=== PATIENT | male | born 1955 | race Caucasian/White ===

== ENCOUNTER 2017-01-04 14:26 | Observation (INO) | payer OTHER ==
[2017-01-04] VITALS (7 sets, daily range): BP systolic 125–152; BP diastolic 60–81; PULSE 69–113; RESP 16–24; TEMP 97.6; O2SAT 95–99
[~2017-01-04] VITALS: Ht 188 cm; Wt 94.0 kg
[~2017-01-04 14:26] MED LIST: CLON1 PO; RISP1 PO
--- NOTE | 2017-01-04 14:53 | PD ---
Physical Exam Time Seen by Provider: 14:53 Narrative 61 y/o male here for evaluation of L chest/arm pain, L leg pain, fatigue intermittently for 3 weeks. He says that he lives a fairly sedentary lifestyle secondary to his copd. Data Data Last Documented VS Vital Signs Date Time Temp Pulse Resp B/P Pulse Ox O2 Delivery O2 Flow Rate FiO2 01/04/17 14:29 97.6 113 24 152/81 97 MDM Medical Record Reviewed: Yes Supervised Visit with DONIS: Scooby Villar Jan 04, 2017 14:53
--- NOTE | 2017-01-04 15:24 | RADRPT ---
EXAM DATE/TIME: 01/04/2017 15:15 [facility] COMPARISON: No previous studies available for comparison. INDICATIONS : Chest pain. MEDICAL HISTORY : Chronic obstructive pulmonary disease. SURGICAL HISTORY : None. ENCOUNTER: Initial ACUITY: 1 week PAIN SCORE: 10/10 LOCATION: Bilateral chest FINDINGS: PA and lateral views of the chest demonstrates a mild infiltrate in the left lung base. Otherwise, th e lungs are clear. There are no pleural effusions or pulmonary edema.. The cardiomediastinal contour s are unremarkable. Osseous structures are intact. CONCLUSION: Small mild infiltrate in the left lower lung. Arcadio Nicole MD on January 04, 2017 at 15:22 Board Certified Radiologist. This report was verified electronically.
[2017-01-04 15:59] LABS: BASOPHIL % 0.4 % (0.0-2.0); EOSINOPHIL # 0.2 TH/MM3 (0-0.4); EOSINOPHIL % 2.3 % (0.0-4.0); HEMATOCRIT 46.1 % (39.0-51.0); HEMO FLAGS DIFF FINAL; LYMPH % 28.2 % (9.0-44.0); LYMPHOCYTE # 2.4 TH/MM3 (1.0-4.8); MEAN CELL VOLUME 86.7 FL (80.0-100.0); MEAN CORPUSCULAR HEMOGLOBIN 29.1 PG (27.0-34.0); MEAN CORPUSCULAR HGB CONC 33.6 % (32.0-36.0); MONO % 9.3 % (0.0-8.0); NEUT % 59.8 % (16.0-70.0); PLATELET COUNT 261 TH/MM3 (150-450); RED BLOOD COUNT 5.31 MIL/MM3 (4.50-5.90); RED CELL DISTRIBUTION WIDTH 12.9 % (11.6-17.2); WHITE BLOOD COUNT 8.4 TH/MM3 (4.0-11.0)
--- NOTE | 2017-01-04 16:08 | PD ---
HPI Chief Complaint: Chest Pain Time Seen by Provider: 16:07 Travel History International Travel<30 days: No Contact w/Intl Traveler<30days: No Traveled to known affect area: No History of Present Illness HPI Patient was in complaining of shortness of breath, left-sided chest discomfort, left upper extremity achiness, left lower extremity achiness ongoing for approximately 6 weeks. Denies any radiation of the pain. Patient states that he has a history of COPD and uses his albuterol as needed last used yesterday. Patient's isn't taking his Advair regularly as it makes him feel sick for 3-5 hours after taking it. Patient states that he has had ultrasounds of his extremities with no reported finding causes of pain. Patient states he goes to the [place] and they recently changed his blood pressure medicine to a beta gabriel 4 weeks ago and feels this is making him worse. Patient states he is not very active secondary to his COPD. Patient is not on home oxygen. Patient denies anything making it better. Breathing is worse on exertion. PFSH Past Medical History Anxiety: Yes COPD: Yes Past Surgical History Other Surgery: Yes Social History Alcohol Use: No Tobacco Use: No (reformed) Substance Use: No Allergies-Medications (Allergen,Severity, Reaction): Coded Allergies: Lisinopril (Verified Allergy, Severe, EDEMA, 01/04/17) Uncoded Allergies: BLOOD PRESSURE PILLS (Allergy, Severe, ITCHING, 01/04/17) Reported Meds & Prescriptions Reported Meds & Active Scripts Active Reported Atenolol 25 Mg Tab 12.5 Mg PO DAILY Aspirin 81 Mg Chew 81 Mg CHEW ONCE Proair Hfa 8.5 GM Inh (Albuterol Sulfate) 90 Mcg/Act Aer 1 Puff INH Q4H PRN 108 mcg/actuation Hydrochlorothiazide 12.5 Mg Cap 12.5 Mg PO DAILY Clonazepam 1 Mg Tab 1 Mg PO BID Review of Systems Except as stated in HPI: all other systems reviewed are Neg Physical Exam Narrative GENERAL: Well-developed, overly nourished, in no acute distress, and non-ill appearing. SKIN: Focused skin assessment warm and dry. HEAD: Atraumatic. Normocephalic. EYES: Pupils equal and round. EOMI. No scleral icterus. No injection or drainage. ENT: No nasal bleeding or discharge. Mucous membranes pink and moist. NECK: Trachea midline. No JVD. Supple. No nuclear rigidity. CARDIOVASCULAR: Regular rate and rhythm. No murmur appreciated. RESPIRATORY: Minimal accessory muscle use. No respiratory distress. Decreased breath sounds throughout. Breath sounds equal bilaterally. Able speak in full sentences without difficulty though does breathe with pursed lips. MUSCULOSKELETAL: No obvious deformities. No clubbing. No cyanosis. No edema. Full range of motion. NEUROLOGICAL: Awake and alert. No obvious cranial nerve deficits. Motor grossly within normal limits. Normal speech. PSYCHIATRIC: Appropriate mood and affect; insight and judgment normal. Data Data Last Documented VS Vital Signs Date Time Temp Pulse Resp B/P Pulse Ox O2 Delivery O2 Flow Rate FiO2 01/04/17 19:05 73 18 145/65 97 Nasal Cannula 2 01/04/17 14:29 97.6 Orders Electrocardiogram (01/04/17 14:54) Ckmb (Isoenzyme) Profile (01/04/17 14:54) Complete Blood Count With Diff (01/04/17 14:54) Comprehensive Metabolic Panel (01/04/17 14:54) D-Dimer (01/04/17 14:54) Magnesium (Mg) (01/04/17 14:54) Prothrombin Time / Inr (Pt) (01/04/17 14:54) Act Partial Throm Time (Ptt) (01/04/17 14:54) Troponin I (01/04/17 14:54) Chest, Pa & Lat (01/04/17 14:54) Ecg Monitoring (01/04/17 16:09) Iv Access Insert/Monitor (01/04/17 16:09) Oximetry (01/04/17 16:09) Oxygen Administration (01/04/17 16:09) Sodium Chloride 0.9% Flush (Ns Flush) (01/04/17 16:15) Ceftriaxone Inj (Rocephin Inj) (01/04/17 16:15) Azithromycin Inj (Zithromax Inj) (01/04/17 16:15) Albuterol-Ipratropium Neb (Duoneb Neb) (01/04/17 16:15) Methylprednisolone So Succ Inj (Solumedr (01/04/17 16:15) Ct Pulmonary Angiogram (01/04/17 ) Us Leg Venous Doppler (01/04/17 16:19) Us Arm Venous Doppler (01/04/17 16:19) Iohexol 350 Inj (Omnipaque 350 Inj) (01/04/17 18:55) Admit Order (Ed Use Only) (01/04/17 19:43) Place In Observation (01/04/17 ) Vital Signs (Adult) Q4H (01/04/17 19:41) Activity Bed Rest (01/04/17 19:41) Edi Developer / Telemetry .CONTINUOUS (01/04/17 19:41) Diet Heart Healthy (01/05/17 Breakfast) Sodium Chloride 0.9% Flush (Ns Flush) (01/04/17 19:45) Sodium Chloride 0.9% Flush (Ns Flush) (01/04/17 21:00) Basic Metabolic Panel (Bmp) (01/05/17 06:00) Complete Blood Count With Diff (01/05/17 06:00) Case Management Consult (01/04/17 19:41) Naloxone Inj (Narcan Inj) (01/04/17 19:45) Labs Laboratory Tests Test 01/04/17 15:53 White Blood Count 8.4 TH/MM3 Red Blood Count 5.31 MIL/MM3 Hemoglobin 15.5 GM/DL Hematocrit 46.1 % Mean Corpuscular Volume 86.7 FL Mean Corpuscular Hemoglobin 29.1 PG Mean Corpuscular Hemoglobin 33.6 % Concent Red Cell Distribution Width 12.9 % Platelet Count 261 TH/MM3 Mean Platelet Volume 7.5 FL Neutrophils (%) (Auto) 59.8 % Lymphocytes (%) (Auto) 28.2 % Monocytes (%) (Auto) 9.3 % Eosinophils (%) (Auto) 2.3 % Basophils (%) (Auto) 0.4 % Neutrophils # (Auto) 5.0 TH/MM3 Lymphocytes # (Auto) 2.4 TH/MM3 Monocytes # (Auto) 0.8 TH/MM3 Eosinophils # (Auto) 0.2 TH/MM3 Basophils # (Auto) 0.0 TH/MM3 CBC Comment DIFF FINAL Differential Comment Prothrombin Time 10.0 SEC Prothromb Time International 0.9 RATIO Ratio Activated Partial 27.8 SEC Thromboplast Time D-Dimer Quantitative (PE/DVT) 0.86 MG/L FEU Sodium Level 139 MEQ/L Potassium Level 4.0 MEQ/L Chloride Level 105 MEQ/L Carbon Dioxide Level 25.6 MEQ/L Anion Gap 8 MEQ/L Blood Urea Nitrogen 24 MG/DL Creatinine 1.13 MG/DL Estimat Glomerular Filtration 66 ML/MIN Rate Random Glucose 70 MG/DL Calcium Level 8.5 MG/DL Magnesium Level 2.3 MG/DL Total Bilirubin 0.3 MG/DL Aspartate Amino Transf 19 U/L (AST/SGOT) Alanine Aminotransferase 48 U/L (ALT/SGPT) Alkaline Phosphatase 85 U/L Total Creatine Kinase 73 U/L Troponin I LESS THAN 0.02 NG/ML Total Protein 7.3 GM/DL Albumin 3.7 GM/DL [facility] Medical Decision Making Medical Screen Exam Complete: Yes Emergency Medical Condition: Yes Interpretation(s) Chest x-ray read by the radiologist shows: Small mild infiltrate in the left lower lung. Left lower extremity Doppler read by the radiologist shows: Positive for occlusive deep venous thrombosis left posterior tibial vein. Left upper extremity Doppler read by the radiologist shows: Normal examination. CT pulmonary angiogram read by the radiologist shows: 1. Negative for pulmonary embolus. 2. Moderate centrilobular emphysema. Differential Diagnosis COPD exacerbation, pneumonia, PE, electrolyte abnormality, dehydration, acute coronary syndrome, musculoskeletal pain, other Narrative Course Patient seen and examined. Initial laboratory and radiological studies were ordered. An IV was established patient is on monitoring coordinator. Patient was given IV steroids and DuoNeb treatment. After getting chest x-ray IV antibiotics were added. 183 patient reassessed status post having ultrasound and breathing treatments done. Patient reports improvement of his breathing status post 2 nebs and IV steroids. Waiting Doppler and CT studies. All radiological and laboratory studies reviewed. Discussed patient with Dr. Christiansen, who recommends having patient admitted further treatment and evaluation , await and see what hospitals would like to start the patient on for anticoagulation. Discussed all findings and plan care of patient, who is agreeable for admission. All questions were answered. Discussed patient with hospitalist who is agreeable to patient. Patient remained stable throughout ED course. Physician Communication Physician Communication [address] Aranda, who is agreeable to admit the patient. Diagnosis Primary Impression: COPD exacerbation Additional Impression: Left leg DVT Qualified Code: I82.442 - Acute deep vein thrombosis (DVT) of tibial vein of left lower extremity Admitting Information Admitting Physician Requests: Admit Condition: Stable Deni Boudreaux Jan 04, 2017 16:08
[2017-01-04 16:15] LABS: APTT (PATIENT) 27.8 SEC (24.3-30.1); INTERNATIONAL NORMALIZED RATIO 0.9 RATIO
[2017-01-04] MEDS ORDERED: SODIUM CHLORIDE 0.9% FLUSH 10 ML FLUSH IVF PRN (16:15)
[2017-01-04] MEDS ORDERED: AZITHROMYCIN INJ 500 MG in SODIUM CHLOR 0.9% 250 ML INJ 250 ML IV ONE (16:15)
[2017-01-04] MEDS ORDERED: methylPREDNISolone SOD SUCC 125 MG/2 ML VIAL IV ONE (16:15)
[2017-01-04] MEDS ORDERED: cefTRIAXone INJ 1,000 MG in SODIUM CHLORIDE 0.9% INJ 100 ML IV ONE (16:15)
[2017-01-04] MEDS: RESP: ALBUTEROL 2.5 MG/IPRATROPIUM 0.5 MG NEB (SCH) INH ×2 (16:30→16:31)
[2017-01-04 16:36] LABS: ALT (GPT) 48 U/L (12-78); ANION GAP 8 MEQ/L (5-15); AST (GOT) 19 U/L (15-37); BICARBONATE 25.6 MEQ/L (21.0-32.0); BLOOD UREA NITROGEN 24 MG/DL (7-18); CHLORIDE 105 MEQ/L (98-107); GLOMERULAR FILTRATION RATE 66 ML/MIN (>89); MAGNESIUM 2.3 MG/DL (1.5-2.5); SODIUM (NA) 139 MEQ/L (136-145)
[2017-01-04 16:40] LABS: ALKALINE PHOSPHATASE 85 U/L (45-117); TOTAL BILIRUBIN ADULT 0.3 MG/DL (0.2-1.0)
[2017-01-04 16:41] LABS: CREATINE KINASE 73 U/L (39-308)
[2017-01-04] MEDS ORDERED: CLON1TAB PO (18:49)
--- NOTE | 2017-01-04 18:52 | RADRPT ---
EXAM DATE/TIME: 01/04/2017 17:50 [facility] COMPARISON: No previous studies available for comparison. INDICATIONS : Left leg pain. MEDICAL HISTORY : Chronic obstructive pulmonary disease. Anxiety. Caffeine use. SURGICAL HISTORY : Right elbow fracture repair. ENCOUNTER: Initial ACUITY: 1 week PAIN SCORE: 5/10 LOCATION: Left leg. TECHNIQUE: Venous ultrasound of the leg was performed from the inguinal ligament to the proximal calf. Real-kodak e, color Doppler and spectral tracing, compression and augmentation techniques were used. FINDINGS: The examination is positive for occlusive thrombus in the left posterior tibial vein. The femoral vei n, popliteal vein, peroneal vein and saphenous vein are patent. CONCLUSION: 1. Positive for occlusive deep venous thrombosis left posterior tibial vein. Charlie Mcneal MD on January 04, 2017 at 18:50 Board Certified Radiologist. This report was verified electronically.
[2017-01-04] MEDS ORDERED: HYDR12.57 PO (18:54)
--- NOTE | 2017-01-04 18:54 | RADRPT ---
EXAM DATE/TIME: 01/04/2017 18:04 [facility] COMPARISON: No previous studies available for comparison. INDICATIONS : MEDICAL HISTORY : Chronic obstructive pulmonary disease. Anxiety. Caffeine use. SURGICAL HISTORY : Right elbow fracture repair. ENCOUNTER: Initial ACUITY: 4 - 6 days PAIN SCORE: 5/10 LOCATION: Left arm. FINDINGS: There is spontaneous flow documented in the brachial, basilic, cephalic, axillary, and subclavian vei ns. The vessels are compressible and augmentation response is documented. No filling defects are se en. The flow is phasic with respiration. Direction of flow in the jugular vein is caudal. CONCLUSION: Normal examination. Charlie Mnceal MD on January 04, 2017 at 18:53 Board Certified Radiologist. This report was verified electronically.
[2017-01-04] MEDS ORDERED: IOHEXOL 350 MG/ML 10 ML VIAL (for RAD DIAG) IV ONE (18:55)
[2017-01-04] MEDS ORDERED: ASPI81CH CHEW (18:56)
[2017-01-04] MEDS ORDERED: ALBUAER3 INH (18:56)
[2017-01-04] MEDS ORDERED: ATEN25TA PO (18:56)
--- NOTE | 2017-01-04 19:20 | RADRPT ---
EXAM DATE/TIME: 01/04/2017 18:48 [facility] COMPARISON: No previous studies available for comparison. INDICATIONS : Chest pain radiating to left arm, evaluate for pulmonary embolus. IV CONTRAST: 50 cc Omnipaque 350 (iohexol) IV RADIATION DOSE: 16.55 CTDIvol (mGy) MEDICAL HISTORY : Chronic obstructive pulmonary disease. SURGICAL HISTORY : None. ENCOUNTER: Initial ACUITY: 3 weeks PAIN SCALE: 6/10 LOCATION: Left chest TECHNIQUE: Volumetric scanning of the chest was performed using a pulmonary embolism protocol MIP images were re constructed. Using automated exposure control and adjustment of the mA and/or kV according to patien t size, radiation dose was kept as low as reasonably achievable to obtain optimal diagnostic quality images. DICOM format image data is available electronically for review and comparison. Follow-up recommendations for incidentally detected pulmonary nodules are based at a minimum on nodul e size and patient risk factors according to Fleischner Society Guidelines. FINDINGS: There is moderate emphysema. There is dependent atelectasis in both lungs. No pleural or pericardial effusion. No adenopathy. No filling defects in the pulmonary arteries to suggest pulmonary buttock disease. No acute findings in the upper abdomen. Low attenuation lesions in the liver probably cysts or hemangiomata. CONCLUSION: 1. Negative for pulmonary embolus. 2. Moderate centrilobular emphysema. Charlie Mcneal MD on January 04, 2017 at 19:16 Board Certified Radiologist. This report was verified electronically.
[2017-01-04] MEDS ORDERED: SODIUM CHLORIDE 0.9% FLUSH 10 ML FLUSH IV FLUSH PRN (19:45)
[2017-01-04] MEDS ORDERED: RESP: ALBUTEROL 2.5 MG/IPRATROPIUM 0.5 MG NEB (PRN) NEB (19:45)
[2017-01-04] MEDS ORDERED: NALOXONE HCL 0.4 MG/ML AMP IV PRN (19:45)
[2017-01-04] MEDS: SODIUM CHLORIDE 0.9% FLUSH 10 ML FLUSH IV FLUSH SCH (21:04)
--- NOTE | 2017-01-04 21:16 | HHI.HP ---
[facility] Admission Diagnosis COPD exacerbation, left lower extremity DVT Diagnoses: (1) Left leg DVT (2) COPD exacerbation (3) Chest pain (4) Dizziness Chief Complaint: left leg pain, chest pain, left arm pain Travel History International Travel<30 Days: No Contact w/Intl Traveler <30 Da: No Traveled to Known Affected Are: No History of Present Illness Written by Bria Rose, acting as scribe for Dr. Aranda on 01/04/17 at 20:47. Patient reports a history of severe COPD. He states he has hypertension and was recently started on a Beta Pawel - said he feels so badly, he wants to "rip his skin off". He gets care at [place] [facility]. He reports pain in his left calf described as "aching"; denies any injury; pain was shooting down leg - symptom present for one month. Left lower extremity US performed in ER: positive for occlusive deep venous thrombosis left posterior tibial vein. He also reports chest pain across chest and radiating down left arm. He said he was feeling so badly that he had his ex- drive him to the [place]. He was seen and told to come to the ER. States chest pain and left arm pain has resolved off the beta pawel for 48 hours. Symptoms present for the past few months. Chest pain is non-exertional; denies diaphoresis, nausea. Stress test and echocardiogram done at [facility] about 2 years ago. Denies fever, bloody or black stools, hematuria, and dysuria. Reports strong smelling urine. Hypertension x 9 months - reports different blood pressure readings at home between left and right arm - lower on the left. Shortness of breath for the past few months. Reports pain in the lung on the left. Last for seconds and "takes your breath away". Reports a history of bronchitis for 9 months - resistant to treatment - treated at [facility] in [facility], [place], and [facility]. Up until one year ago, was only on Klonopin. Not as ambulatory over the past year. Had a lot of dizziness when ambulating. He denies arthritis. Prior to this, he was very strong and active. Motorcycle riding. Lifting appliances. Review of Systems Except as stated in HPI: all other systems reviewed are Neg Past Family Social History Past Medical History Hypertension - diagnosed 9 months ago COPD Chronic Bronchitis History of right elbow fracture Insomnia Anxiety Denies diabetes mellitus, COPD, CAD, heart problems, JANEEN, liver problems, kidney problems, DVT, PE, CVA, seizures, cancers, prostate problems, thyroid problems . Past Surgical History Right elbow fracture repair . Reported Medications Reported Meds & Active Scripts Active Reported Atenolol 25 Mg Tab 12.5 Mg PO DAILY Aspirin 81 Mg Chew 81 Mg CHEW ONCE Proair Hfa 8.5 GM Inh (Albuterol Sulfate) 90 Mcg/Act Aer 1 Puff INH Q4H PRN 108 mcg/actuation Hydrochlorothiazide 12.5 Mg Cap 12.5 Mg PO DAILY Clonazepam 1 Mg Tab 1 Mg PO BID . Allergies: Coded Allergies: Lisinopril (Verified Allergy, Severe, EDEMA, 01/04/17) Beta Blockers (Verified Adverse Reaction, Intermediate, feeling of nervousness, feeling of skin coming off, , 01/05/17) Uncoded Allergies: BLOOD PRESSURE PILLS (Allergy, Severe, ITCHING, 01/04/17) Active Ordered Medications Current Medications Sodium Chloride 2 ml 2 ml UNSCH PRN IVF FLUSH AFTER USING IV ACCESS; Start 01/04 at 16:15; Stop 01/04/17 at 19:47; Status DC Ceftriaxone Sodium 1000 mg/ Sodium Chloride 100 ml @ 200 mls/hr ONCE ONCE IV Last administered on 01/04/17 16:39; Start 01/04/17 at 16:15; Stop 01/04/17 at 16: 44; Status DC Azithromycin/ Sodium Chloride (Zithromax Inj/ NS 250 ml Inj) 250 ml @ 250 mls/ hr ONCE ONCE IV Last administered on 01/04/17 17:24; Start 01/04/17 at 16:15; Stop 01/04/17 at 17:14; Status DC Albuterol/ Ipratropium (Duoneb Neb) 1 ampule Q15M INH Last administered on 16:31; Start 01/04/17 at 16:15; Stop 01/04/17 at 16:46; Status DC Methylprednisolone Sodium Succinate (SoluMEDROL INJ) 125 mg ONCE ONCE IV Last administered on 01/04/17 16:40; Start 01/04/17 at 16:15; Stop 01/04/17 at 16:16; Status DC Iohexol (Omnipaque 350 Inj) 50 ml STK-MED ONCE IV Last administered on t 18:55; Start 01/04/17 at 18:55; Stop 01/04/17 at 18:56; Status DC Sodium Chloride (NS Flush) 2 ml UNSCH PRN IV FLUSH FLUSH AFTER USING IV ACCESS ; Start 01/04/17 at 19:45 Sodium Chloride (NS Flush) 2 ml BID IV FLUSH ; Start 01/04/17 at 21:00 Naloxone HCl (Narcan Inj) 0.4 mg UNSCH PRN IV SEE LABEL COMMENTS; Start at 19:45 Albuterol/ Ipratropium (Duoneb Neb) 1 ampule Q6HR NEB NEB ; Start 01/04/17 at 22 :00; Status UNV Albuterol/ Ipratropium 1 ampule 1 ampule Q2HR NEB PRN NEB wheezing; Start at 19:45; Status UNV Levofloxacin/ Dextrose (Levaquin 750 Mg Premix Inj) 150 ml @ 100 mls/hr Q24H IV ; Start 01/05/17 at 09:00; Status UNV Methylprednisolone Sodium Succinate (SoluMEDROL INJ) 40 mg Q6HR IV PUSH ; Start 01/05/17 at 00:00; Status UNV Pantoprazole Sodium (Protonix) 40 mg DAILY PO ; Start 01/05/17 at 09:00; Status UNV Enoxaparin Sodium (Lovenox Inj) 90 mg Q12H SQ ; Start 01/04/17 at 20:30; Status UNV . Family History Mental illness in family Denies cardiac family history . 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 Physical Exam Vital Signs Vital Signs Date Time Temp Pulse Resp B/P Pulse Ox O2 Delivery O2 Flow Rate FiO2 01/04/17 19:05 73 18 145/65 97 Nasal Cannula 2 01/04/17 18:46 72 16 125/60 95 Nasal Cannula 2 01/04/17 17:16 69 22 125/60 96 01/04/17 16:33 98 Nasal Cannula 2.50 01/04/17 15:50 99 2 01/04/17 15:50 99 Nasal Cannula 2 01/04/17 15:47 68 98 Nasal Cannula 01/04/17 14:29 97.6 113 24 152/81 97 Physical Exam GENERAL: This is a well-nourished, well-developed patient, in no apparent distress. Anxious. Talkative. SKIN: No rashes, ecchymoses or lesions. Cool and dry. HEAD: Atraumatic. Normocephalic. EYES: No scleral icterus. No injection or drainage. ENT: Nose without bleeding, purulent drainage. NECK: Trachea midline. No JVD. CARDIOVASCULAR: Regular rate and rhythm without murmurs, gallops, or rubs. RESPIRATORY: Clear to auscultation. Breath sounds equal bilaterally. No wheezes , rales, or rhonchi. GASTROINTESTINAL: Abdomen soft, non-tender, nondistended. No guarding. MUSCULOSKELETAL: Extremities without clubbing, cyanosis, or edema. No calf tenderness. NEUROLOGICAL: Awake and alert. Motor and sensory grossly within normal limits. Normal speech. . Laboratory Laboratory Tests Test 01/04/17 15:53 White Blood Count 8.4 Red Blood Count 5.31 Hemoglobin 15.5 Hematocrit 46.1 Mean Corpuscular Volume 86.7 Mean Corpuscular Hemoglobin 29.1 Mean Corpuscular Hemoglobin 33.6 Concent Red Cell Distribution Width 12.9 Platelet Count 261 Mean Platelet Volume 7.5 Neutrophils (%) (Auto) 59.8 Lymphocytes (%) (Auto) 28.2 Monocytes (%) (Auto) 9.3 Eosinophils (%) (Auto) 2.3 Basophils (%) (Auto) 0.4 Neutrophils # (Auto) 5.0 Lymphocytes # (Auto) 2.4 Monocytes # (Auto) 0.8 Eosinophils # (Auto) 0.2 Basophils # (Auto) 0.0 CBC Comment DIFF FINAL Differential Comment Prothrombin Time 10.0 Prothromb Time International 0.9 Ratio Activated Partial 27.8 Thromboplast Time D-Dimer Quantitative (PE/DVT) 0.86 Sodium Level 139 Potassium Level 4.0 Chloride Level 105 Carbon Dioxide Level 25.6 Anion Gap 8 Blood Urea Nitrogen 24 Creatinine 1.13 Estimat Glomerular Filtration 66 Rate Random Glucose 70 Calcium Level 8.5 Magnesium Level 2.3 Total Bilirubin 0.3 Aspartate Amino Transf 19 (AST/SGOT) Alanine Aminotransferase 48 (ALT/SGPT) Alkaline Phosphatase 85 Total Creatine Kinase 73 Troponin I LESS THAN 0.02 Total Protein 7.3 Albumin 3.7 Result Diagram: 01/04/17 1553 01/04/17 1553 Imaging Last Impressions Upper Extremity Ultrasound 01/04/17 1619 Signed Impressions: Service Date/Time: Wednesday, January 04, 2017 18:04 - CONCLUSION: Normal examination. Charlie Mcneal MD Lower Extremity Ultrasound 01/04/17 1619 Signed Impressions: Service Date/Time: Wednesday, January 04, 2017 17:50 - CONCLUSION: 1. Positive for occlusive deep venous thrombosis left posterior tibial vein. Charlie Mcneal MD Chest X-Ray 01/04/17 1454 Signed Impressions: Service Date/Time: Wednesday, January 04, 2017 15:15 - CONCLUSION: Small mild infiltrate in the left lower lung. Arcadio Nicole MD CT Angiography 01/04/17 0000 Signed Impressions: Service Date/Time: Wednesday, January 04, 2017 18:48 - CONCLUSION: 1. Negative for pulmonary embolus. 2. Moderate centrilobular emphysema. Charlie Mcneal MD Assessment and Plan Problem List: (1) Left leg DVT ICD Code: I82.402 Status: Acute (2) COPD exacerbation ICD Code: J44.1 Status: Acute (3) Chest pain ICD Code: R07.9 Status: Acute (4) Dizziness ICD Code: R42 Status: Chronic Assessment and Plan 61 y/o male with history of COPD who presented with COPD exacerbation and left leg DVT: Left leg DVT - Left lower extremity US: positive for occlusive deep venous thrombosis left posterior tibial vein. - Lovenox 90 mg subq q12h - Bedrest Chest pain - ongoing - Check 2D echocardiogram to evaluate cardiac structure and function - continuous cardiac telemetry to monitor cardiac rate and to evaluate for arrhythmia - Monitor vital signs q4h - serial cardiac enzymes and EKGs to r/o ACS - consult cardiology - suspect patient may need angiogram COPD exacerbation - Antibiotics: Levaquin 750 mg IV q24h - Solumedrol 40 mg IV q6h - Duonebulizers q6h ATC and q2h PRN wheezing Dizziness - Carotid ultrasound to evaluate for carotid artery stenosis BP variation between arms - Aortic ultrasound to r/o aortic dissection - check bp both arms - no pulse deficit noted Anxiety - resume home clonazepam Insomnia - Diphenhydramine 50 mg p.o. qhs PRN insomnia This note was transcribed by scribdeneen [Bria Rose]. I, Dr. Chencho Aranda personally performed the history, physical exam, and medical decision making; and confirmed the accuracy of the information in the transcribed note. Authenticated by Dr. Chencho Aranda on 01/04/17 at 20:47. Discussed Condition With ER physician, RN, and patient . Problem Qualifiers (1) Left leg DVT: Qualified Code: I82.442 - Acute deep vein thrombosis (DVT) of tibial vein of left lower extremity Bria Rose Jan 04, 2017 21:16 Chencho Aranda MD Jan 05, 2017 08:23
[2017-01-04] MEDS: RESP: ALBUTEROL 2.5 MG/IPRATROPIUM 0.5 MG NEB (SCH) NEB (21:23)
[2017-01-04] MEDS: ENOXAPARIN SODIUM 100 MG/ML SYRINGE SQ SCH (21:27)
[2017-01-04] MEDS ORDERED: ASPIRIN 81 MG CHEW TAB CHEW SCH (22:30)
[2017-01-04] MEDS: clonazePAM 1 MG TAB PO SCH (22:33)
[2017-01-04] MEDS: diphenhydrAMINE HCL 50 MG CAP PO PRN ×2 (22:33→23:32)
--- NOTE | 2017-01-04 23:29 | RADRPT ---
EXAM DATE/TIME: 01/04/2017 22:32 [facility] COMPARISON: No previous studies available for comparison. INDICATIONS : Dizziness. MEDICAL HISTORY : Chronic obstructive pulmonary disease. SURGICAL HISTORY : Right elbow surgery. ENCOUNTER: Initial ACUITY: 1 day PAIN SCORE: 6/10 LOCATION: Bilateral neck PEAK SYSTOLIC VELOCITIES (cm/sec): ICA/CCA RATIO: Right: 0.9 Left: 0.7 ICA: Right: 97 Left: 103 CCA: Right: 111 Left: 149 ECA: Right: 155 Left: 146 VERTEBRAL: Right: 70 antegrade Left: 53 antegrade Elevated flow velocities and ICA/CCA ratios have been found to correlate with increased degrees of vessel stenosis, calculated as percentage of diameter relative to a normal segment of distal ICA/CCA FINDINGS: RIGHT CAROTID: No significant stenosis is visualized. The waveforms are within normal limits. LEFT CAROTID: No significant stenosis is visualized. The waveforms are within normal limits. VERTEBRAL ARTERIES: Antegrade flow is seen in both vertebral arteries. MISCELLANEOUS: None. CONCLUSION: 1. No evidence for hemodynamically significant stenosis. Manish Villa MD on January 04, 2017 at 23:26 Board Certified Radiologist. This report was verified electronically.
--- NOTE | 2017-01-04 23:30 | RADRPT ---
EXAM DATE/TIME: 01/04/2017 22:47 [facility] COMPARISON: No previous studies available for comparison. INDICATIONS : Rule out aortic dissection. MEDICAL HISTORY : Chronic obstructive pulmonary disease. SURGICAL HISTORY : Right elbow surgery. ENCOUNTER: Initial ACUITY: 1 day PAIN SCORE: 7/10 LOCATION: Abdomen. MEASUREMENTS: (AP x TRANSVERSE) PROXIMAL: 1.9 x 1.3 cm MID: NOT VISUALIZED DISTAL: 1.7 x 1.5 cm RIGHT ILIAC: 0.6 x 0.8 cm LEFT ILIAC: 0.5 x 0.8 cm FINDINGS: AORTA: No significant atherosclerotic disease. Doppler evaluation within normal limits. The mid abdominal a apurva is not clearly visualized on this examination. CONCLUSION: 1. There is no aneurysm. 2. If there is clinical suspicion of aortic dissection, then a CT angiogram of the aorta is recommend ed. Manish Villa MD on January 04, 2017 at 23:28 Board Certified Radiologist. This report was verified electronically.
[2017-01-04] MEDS: methylPREDNISolone SOD SUCC 40 MG/1 ML VIAL IV PUSH SCH (23:32)
[2017-01-05] VITALS (9 sets, daily range): BP systolic 117–161; BP diastolic 58–91; PULSE 75–102; RESP 18–20; TEMP 97.4–98.2; O2SAT 92–95
[2017-01-05 00:01] LABS: CREATINE KINASE 59 U/L (39-308)
[2017-01-05] MEDS: RESP: ALBUTEROL 2.5 MG/IPRATROPIUM 0.5 MG NEB (SCH) NEB ×4 (03:26→20:16)
[2017-01-05] MEDS: methylPREDNISolone SOD SUCC 40 MG/1 ML VIAL IV PUSH SCH ×3 (05:01→17:52)
[2017-01-05 07:27] LABS: AUTOMATED NEUTROPHIL # 7.3 TH/MM3 (1.8-7.7); BASOPHIL % 0.1 % (0.0-2.0); HEMATOCRIT 40.4 % (39.0-51.0); HEMO FLAGS DIFF FINAL; LYMPH % 9.1 % (9.0-44.0); LYMPHOCYTE # 0.7 TH/MM3 (1.0-4.8); MEAN CELL VOLUME 85.3 FL (80.0-100.0); MEAN CORPUSCULAR HEMOGLOBIN 29.7 PG (27.0-34.0); MEAN CORPUSCULAR HGB CONC 34.8 % (32.0-36.0); MONO % 1.7 % (0.0-8.0); NEUT % 89.1 % (16.0-70.0); PLATELET COUNT 235 TH/MM3 (150-450); RED BLOOD COUNT 4.73 MIL/MM3 (4.50-5.90); WHITE BLOOD COUNT 8.2 TH/MM3 (4.0-11.0)
[2017-01-05 07:37] LABS: ANION GAP 9 MEQ/L (5-15); BICARBONATE 22.3 MEQ/L (21.0-32.0); BLOOD UREA NITROGEN 28 MG/DL (7-18); CHLORIDE 108 MEQ/L (98-107); GLOMERULAR FILTRATION RATE 72 ML/MIN (>89); POTASSIUM 4.1 MEQ/L (3.5-5.1); SODIUM (NA) 139 MEQ/L (136-145)
[2017-01-05 07:43] LABS: CREATINE KINASE 55 U/L (39-308)
--- NOTE | 2017-01-05 08:17 | EKG ---
Date Performed: 01/05/2017 Time Performed: 03:15:43 PTAGE: 61 years EKG: Sinus rhythm NORMAL ECG PREVIOUS TRACING : 01/04/2017 15.36 DOCTOR: Randy Dang Interpretating Date/Time 01/05/2017 08:15:54
--- NOTE | 2017-01-05 08:22 | MB ---
cc: ADINA LENZ DATE OF CONSULTATION: 01/05/2017 INDICATION Chest pain. HISTORY OF PRESENT ILLNESS This is a 61-year-old gentleman who has a history of hypertension, COPD, who presented to the emergency department with several vague complaints including left arm pain, left leg pain and some vague chest pain. Describes the chest pain as more of an ache in his chest. It is not worse with exertion. He recently went to [place] to see his son graduate and he has been having nonexertional symptoms now for several weeks. He says that it radiates across his chest and down his arm. Initial troponins were negative. Electrocardiogram was unremarkable. He had ultrasound which did show a left peroneal vein thrombus. PAST MEDICAL HISTORY 1. Hypertension. 2. COPD. 3. Bronchitis. 4. Insomnia. 5. Anxiety. MEDICATIONS Reported medications: 1. Atenolol. 2. Aspirin. 3. Pro-air. 4. Hydrochlorothiazide. 5. Clonazepam. ALLERGIES LISINOPRIL. FAMILY HISTORY Denies any family history of early coronary disease or sudden cardiac . SOCIAL HISTORY Quit smoking 2 years ago. Previous heavy drinker years ago, none recent. Denies any illicit drug use. REVIEW OF SYSTEMS 12-point review of systems was performed and negative unless otherwise noted in the history of present illness. PHYSICAL EXAMINATION VITAL SIGNS: Temperature 97, pulse 97, blood pressure 117/58 mmHg. GENERAL: Alert and oriented x3, in no acute distress. HEENT/NECK: Exam shows pupils are reactive to light and accommodation. Extraocular movements are intact. No elevation in jugular venous distension. No thyromegaly or lymphadenopathy. No carotid bruits. LUNGS: Clear to auscultation bilaterally. CARDIOVASCULAR: Regular rate and rhythm without murmurs, rubs or gallops. ABDOMEN: Nontender, nondistended. Good bowel sounds. No hepatosplenomegaly. EXTREMITIES: No clubbing, cyanosis or edema. Good peripheral pulses. Cranial nerves intact. Motor and sensory grossly intact. LABORATORY DATA Sodium 139, potassium 4.1, BUN 28, creatinine is 1.06, troponins negative. ASSESSMENT 1. Atypical chest pain. 2. Hypertension. 3. COPD. PLAN The patient's symptoms are rather atypical. Initial troponins are negative. Electrocardiogram is unremarkable. 2-D echocardiogram has been ordered. We will proceed with Lexiscan stress test. Continue treatment for COPD exacerbation in addition to anticoagulation. MD RICARDO Vaughn/MARIANELA /7:43 AM /8:05 AM
--- NOTE | 2017-01-05 08:30 | EKG ---
Date Performed: 01/04/2017 Time Performed: 15:36:12 PTAGE: 61 years EKG: Sinus rhythm NORMAL ECG PREVIOUS TRACING : 01/23/2008 20.36 DOCTOR: Randy Dang Interpretating Date/Time 01/05/2017 08:27:48
[2017-01-05] MEDS ORDERED: ACETAMINOPHEN 325 MG TAB PO PRN (09:00)
[2017-01-05] MEDS ORDERED: ACETAMINOPHEN/HYDROcodone 325 MG/7.5 MG TAB PO PRN (09:00)
[2017-01-05] MEDS ORDERED: ACETAMINOPHEN/HYDROcodone 325 MG/5 MG TAB PO PRN (09:00)
[2017-01-05] MEDS: LEVOFLOXACIN 750 MG PREMIX INJ 150 ML IV SCH (09:05)
[2017-01-05] MEDS: ENOXAPARIN SODIUM 100 MG/ML SYRINGE SQ SCH ×2 (09:06→20:19)
[2017-01-05] MEDS: clonazePAM 1 MG TAB PO SCH ×2 (09:06→20:19)
[2017-01-05] MEDS: PANTOPRAZOLE SOD 40 MG DELAYED RELEASE TAB PO SCH (09:06)
[2017-01-05] MEDS: SODIUM CHLORIDE 0.9% FLUSH 10 ML FLUSH IV FLUSH SCH ×2 (09:07→20:19)
[2017-01-05] MEDS: ASPIRIN EC 81 MG TABEC PO SCH (09:20)
--- NOTE | 2017-01-05 10:14 | HHI.PR ---
Subjective Remarks Follow up for chest pain, COPD exacerbation, pneumonia. The patient reports a diffuse frontal headache this morning, no associated visual changes/photophobia/ nausea. He denies any chest pain or shortness of breath overnight. He denies any cough, fevers/chills. Had long discussion regarding anticoagulation, patient prefers novel agents such as Xarelto over Coumadin. He [facility] not be compliant with [facility] checks. Objective Vitals Vital Signs Date Time Temp Pulse Resp B/P Pulse Ox O2 Delivery O2 Flow Rate FiO2 01/05/17 07:59 97.4 92 20 132/79 94 130/74 01/05/17 05:07 97.8 97 18 117/58 92 136/65 01/05/17 01:50 145/84 01/05/17 00:49 98.2 97 18 137/69 92 01/05/17 00:14 97.9 91 18 161/91 95 01/04/17 23:12 79 01/04/17 19:05 73 18 145/65 97 Nasal Cannula 2 01/04/17 18:46 72 16 125/60 95 Nasal Cannula 2 01/04/17 17:16 69 22 125/60 96 01/04/17 16:33 98 Nasal Cannula 2.50 01/04/17 15:50 99 2 01/04/17 15:50 99 Nasal Cannula 2 01/04/17 15:47 68 98 Nasal Cannula 01/04/17 14:29 97.6 113 24 152/81 97 Result Diagram: 01/05/17 0630 01/05/17 0630 Imaging Last Impressions Upper Extremity Ultrasound 01/04/171618 Signed Impressions: Service Date/Time: Wednesday, January 04, 2017 18:04 - CONCLUSION: Normal examination. Charlie Mcneal MD Lower Extremity Ultrasound 01/04/171618 Signed Impressions: Service Date/Time: Wednesday, January 04, 2017 17:50 - CONCLUSION: 1. Positive for occlusive deep venous thrombosis left posterior tibial vein. Charlie Mcneal MD Chest X-Ray 01/04/17 1454 Signed Impressions: Service Date/Time: Wednesday, January 04, 2017 15:15 - CONCLUSION: Small mild infiltrate in the left lower lung. Arcadio Nicole MD Carotid Artery Ultrasound 8/8/17 0000 Signed Impressions: Service Date/Time: Wednesday, January 04, 2017 22:32 - CONCLUSION: 1. No evidence for hemodynamically significant stenosis. Manish Villa MD CT Angiography 01/04/17 Signed Impressions: Service Date/Time: Wednesday, January 04, 2017 18:48 - CONCLUSION: 1. Negative for pulmonary embolus. 2. Moderate centrilobular emphysema. Charlie Mcneal MD Aorta Ultrasound 01/04/17 Signed Impressions: Service Date/Time: Wednesday, January 04, 2017 22:47 - CONCLUSION: 1. There is no aneurysm. 2. If there is clinical suspicion of aortic dissection, then a CT angiogram of the aorta is recommended. Manish Villa MD Objective Remarks GENERAL: Well-nourished, well-developed middle aged male patient in [facility]. SKIN: Warm and dry. No rash. HEENT: Normocephalic. Atraumatic.Pupils equal and round. Mucous membranes pink and moist. NECK: Supple. Trachea midline. CARDIOVASCULAR: Regular rate and rhythm. S1, S2 noted. No murmur appreciated. RESPIRATORY: No accessory muscle use. Clear to auscultation. Breath sounds equal bilaterally. GASTROINTESTINAL: Abdomen soft, non-tender, nondistended. Normoactive bowel sounds x4. MUSCULOSKELETAL: No obvious deformities. Extremities without clubbing, cyanosis , or edema. Calves nontender bilaterally. NEUROLOGICAL: Awake and alert. No obvious cranial nerve deficits. Motor grossly within normal limits. Normal speech. PSYCHIATRIC: Slightly anxious; insight and judgment normal. Medications and IVs Current Medications Medications (Trade) Dose Ordered Sig/Monica Route Start Time Stop Time Status Last Admin (NS Flush) 2 ml UNSCH PRN IV FLUSH 01/04/17 19:45 01/05/17 05:02 (NS Flush) 2 ml BID IV FLUSH 01/04/17 21:00 01/05/17 09:07 Naloxone HCl 0.4 mg 0.4 mg UNSCH PRN IV 01/04/17 19:45 (Levaquin 750 Mg Premix Inj) 150 ml @ 100 mls/hr Q24H IV 01/05/17 09:00 01/05/17 09:05 (SoluMEDROL INJ) 40 mg Q6HR IV PUSH 01/05/17 00:00 01/05/17 05:01 (Protonix) 40 mg DAILY PO 01/05/17 09:00 01/05/17 09:06 (Lovenox Inj) 90 mg Q12HR SQ 01/04/17 21:30 01/05/17 09:06 (KlonoPIN) 1 mg BID PO 01/04/17 22:30 01/05/17 09:06 (Benadryl) 50 mg HS PRN PO 01/04/17 22:30 01/04/17 23:32 (Tylenol) 650 mg Q6H PRN PO 01/05/17 09:00 01/05/17 09:20 (Reading 5-325 Mg) 1 tab Q4H PRN PO 01/05/17 09:00 (Reading 7.5-325 Mg) 1 tab Q4H PRN PO 01/05/17 09:00 (Ecotrin Ec) 81 mg DAILY PO 01/05/17 09:00 01/05/17 09:20 A/P Problem List: (1) Left leg DVT ICD Code: I82.402 Status: Acute (2) COPD exacerbation ICD Code: J44.1 Status: Acute (3) Chest pain ICD Code: R07.9 Status: Acute (4) Dizziness ICD Code: R42 Status: Chronic Assessment and Plan 61 y/o male with history of COPD who presented with COPD exacerbation and left leg DVT: Left leg DVT - Left lower extremity Doppler US positive for occlusive deep venous thrombosis left posterior tibial vein. - Continue Lovenox 90 mg subq q12h - Plan to transition to Xarelto at discharge Chest pain - ongoing - Check 2D echocardiogram to evaluate cardiac structure and function - continuous cardiac telemetry to monitor cardiac rate and to evaluate for arrhythmia - Monitor vital signs q4h - ACS ruled out with negative serial cardiac enzymes and EKG without ischemic changes - consult cardiology - plan for nuclear stress test today Acute COPD exacerbation with Pneumonia: CXR images reviewed, shows LLL infiltrate - Continue Antibiotics with Levaquin 750 mg IV q24h - Continue Solumedrol 40 mg IV q6h - Duonebulizers q6h monica and q2h prn wheezing Dizziness - Carotid ultrasound unremarkable - checking echo as above BP variation between arms - Aortic ultrasound negative for aneurysm - check bp both arms, variable results, most recently with same BP in both arms - no pulse deficit noted Anxiety - resume home clonazepam Insomnia - Diphenhydramine 50 mg p.o. qhs PRN insomnia DVT Prophylaxis: on full strength lovenox Discharge Planning Undergoing nuclear stress test and echo today, further disposition to follow Problem Qualifiers (1) Left leg DVT: Qualified Code: I82.442 - Acute deep vein thrombosis (DVT) of tibial vein of left lower extremity Maria C Orlando PA-C Jan 05, 2017 10:14 am
[2017-01-05] MEDS ORDERED: REGADENOSON INJ 0.4 MG/5 ML SYR ONE (13:11)
--- NOTE | 2017-01-05 14:18 | RADRPT ---
EXAM DATE/TIME: 01/05/2017 11:55 [facility] COMPARISON: No previous studies available for comparison. INDICATIONS : Chest pain. Angina. DOSE: 25.9 mCi Tc99m Myoview at stress. 8.5 mCi Tc99m Myoview at rest. 0.4 mg Lexiscan STRESS SYMPTOMS: Dyspnea, facial flush and headache. EJECTION FRACTION: > 70% MEDICAL HISTORY : Chronic obstructive pulmonary disease. Deep venous thrombosis. Hypertension. SURGICAL HISTORY : Elbow. ENCOUNTER: Initial ACUITY: 1 day PAIN SCALE: 0/10 LOCATION: Bilateral chest TECHNIQUE: The patient underwent pharmacologic stress with infusion of prescribed dose. Continuous ECG tracing was monitored during stress. Gated SPECT imaging was performed after stress and conventional SPECT i maging was performed at rest. The examination was performed on a SPECT/CT scanner, both attenuation and non-corrected datasets were reviewed. FINDINGS: DISTRIBUTION: The maximum perfused segment at stress is in the septal wall. PERFUSION STUDY: The pattern of perfusion at stress is within normal limits. GATED STUDY: There is intact wall motion and thickening without hypokinetic or dyskinetic segments. CONCLUSION: Normal examination. RISK CATEGORY: Low (<1% Annual Mortality Rate) Ray Zamora MD on January 05, 2017 at 14:16 Board Certified Radiologist. This report was verified electronically.
[2017-01-05 18:43] LABS: HEMOGLOBIN A1b 1.7 %; HEMOGLOBIN Ao 84.8 %; HEMOGLOBIN LA1C 2.3 %; HEMOGLOBIN P3 5.6 %
[2017-01-06] VITALS (8 sets, daily range): BP systolic 118–141; BP diastolic 56–75; PULSE 69–106; RESP 16–20; TEMP 97.5–98.2; O2SAT 92–96
[2017-01-06] MEDS: methylPREDNISolone SOD SUCC 40 MG/1 ML VIAL IV PUSH SCH ×3 (01:59→12:24)
[2017-01-06] MEDS: diphenhydrAMINE HCL 50 MG CAP PO PRN (01:59)
[2017-01-06] MEDS: RESP: ALBUTEROL 2.5 MG/IPRATROPIUM 0.5 MG NEB (SCH) NEB ×3 (02:45→15:52)
--- NOTE | 2017-01-06 09:08 | PD.CARD.PN ---
Subjective Subjective Remarks denies chest pain Objective Vital Signs / I&O Vital Signs Date Time Temp Pulse Resp B/P Pulse Ox O2 Delivery O2 Flow Rate FiO2 01/06/17 08:03 98.2 85 20 129/58 94 01/06/17 04:06 98.0 69 16 118/56 92 132/74 01/06/17 02:11 106 01/06/17 00:34 97.5 93 17 120/59 94 133/75 01/05/17 20:17 95 Nasal Cannula 2.00 01/05/17 20:02 97.8 102 18 160/84 94 142/71 01/05/17 15:00 97.6 75 18 154/79 94 Physical Exam GENERAL: Well-nourished, well-developed patient in no apparent distress. NECK: No JVD. No carotid bruit. CARDIOVASCULAR: Regular rate and rhythm. S1/S2 no murmur, rub, or gallop. RESPIRATORY: No accessory muscle use. Clear to auscultation. Breath sounds equal bilaterally. GASTROINTESTINAL: Abdomen soft, non-tender, nondistended. MUSCULOSKELETAL: Extremities without clubbing, cyanosis, or edema. Laboratory Laboratory Tests Test 01/06/17 06:05 Triglycerides Level 86 MG/DL Cholesterol Level 181 MG/DL LDL Cholesterol 111 MG/DL HDL Cholesterol 53.0 MG/DL Cholesterol/HDL Ratio 3.41 RATIO Assessment and Plan Problem List: (1) Chest pain Assessment and Plan SPECT is normal, echo is pending. If that is normal he can be discharged home. Sign off call with further questions Israel Mcmahan Jan 06, 2017 09:08
[2017-01-06] MEDS: LEVOFLOXACIN 750 MG PREMIX INJ 150 ML IV SCH (09:55)
[2017-01-06] MEDS: SODIUM CHLORIDE 0.9% FLUSH 10 ML FLUSH IV FLUSH SCH (09:56)
[2017-01-06] MEDS: ASPIRIN EC 81 MG TABEC PO SCH (09:56)
[2017-01-06] MEDS: PANTOPRAZOLE SOD 40 MG DELAYED RELEASE TAB PO SCH (09:56)
[2017-01-06] MEDS: clonazePAM 1 MG TAB PO SCH (09:57)
[2017-01-06] MEDS: ENOXAPARIN SODIUM 100 MG/ML SYRINGE SQ SCH (09:58)
[2017-01-06] MEDS ORDERED: ENOX100P SQ (10:04)
[2017-01-06] MEDS ORDERED: COUM5TAB PO ×2 (10:05→15:25)
[2017-01-06] MEDS ORDERED: PANT40TA3 PO (10:06)
[2017-01-06] MEDS ORDERED: MEDR4PAK PO (10:06)
[2017-01-06] MEDS ORDERED: LEVA750T9 PO (10:06)
--- NOTE | 2017-01-06 10:06 | HHI.DCPOC ---
Discharge Care Plan Diagnosis: (1) COPD exacerbation (2) Pneumonia (3) Left leg DVT Goals to Promote Your Health * To prevent worsening of your condition and complications * To maintain your health at the optimal level Directions to Meet Your Goals Take your medications as prescribed Follow your dietary instruction Follow activity as directed Keep your appointments as scheduled Take your immunizations and boosters as scheduled If your symptoms worsen call your PCP, if no PCP go to Urgent Care Center or Emergency Room Smoking is Dangerous to Your Health. Avoid second hand smoke Call the 24-hour hour crisis hotline for domestic abuse at Maria C Orlando PA-C Jan 06, 2017 10:06
--- NOTE | 2017-01-06 10:18 | HHI.PR ---
Subjective Remarks Follow up for chest pain, COPD exacerbation, pneumonia, DVT. The patient reports feeling well today. Denies any further chest pains. Has occasional mild cough. Denies fevers/chills. Denies any leg pains. He states he thought about his anticoagulation and discussed with a friend, he has now decided he wants to be on Coumadin because of the ability to reverse anticoagulation. He is concerned he will not be able to follow at the [facility] for INR checks since he lives in [place] and it costs him $50 every time he goes to the [facility]. He is requesting further assistance with obtaining PCP or HHC to check INRs. Also, patient prefers to avoid prednisone at discharge if possible, agrees to medrol. The patient is also requesting oxygen to be arranged, he states he feels much better while on oxygen, will check walk test. Objective Vitals Vital Signs Date Time Temp Pulse Resp B/P Pulse Ox O2 Delivery O2 Flow Rate FiO2 01/06/17 08:03 98.2 85 20 129/58 94 01/06/17 04:06 98.0 69 16 118/56 92 132/74 01/06/17 02:11 106 01/06/17 00:34 97.5 93 17 120/59 94 133/75 01/05/17 20:17 95 Nasal Cannula 2.00 01/05/17 20:02 97.8 102 18 160/84 94 142/71 01/05/17 15:00 97.6 75 18 154/79 94 Result Diagram: 01/05/17 0630 01/05/17 0630 Imaging Last Impressions Myocardial Perfusion Scan Nuc Med 01/05/17 0000 Signed Impressions: Service Date/Time: Thursday, January 05, 2017 11:55 - CONCLUSION: Normal examination. RISK CATEGORY: Low (<1%% Annual Mortality Rate) Ray Zamora MD Upper Extremity Ultrasound 01/04/171618 Signed Impressions: Service Date/Time: Wednesday, January 04, 2017 18:04 - CONCLUSION: Normal examination. Charlie Mcneal MD Lower Extremity Ultrasound 01/04/171618 Signed Impressions: Service Date/Time: Wednesday, January 04, 2017 17:50 - CONCLUSION: 1. Positive for occlusive deep venous thrombosis left posterior tibial vein. Charlie Mcneal MD Chest X-Ray 01/04/17 3214 Signed Impressions: Service Date/Time: Wednesday, January 04, 2017 15:15 - CONCLUSION: Small mild infiltrate in the left lower lung. Arcadio Nicole MD Carotid Artery Ultrasound 01/04/17 0000 Signed Impressions: Service Date/Time: Wednesday, January 04, 2017 22:32 - CONCLUSION: 1. No evidence for hemodynamically significant stenosis. Manish Villa MD CT Angiography 01/04/17 0000 Signed Impressions: Service Date/Time: Wednesday, January 04, 2017 18:48 - CONCLUSION: 1. Negative for pulmonary embolus. 2. Moderate centrilobular emphysema. Charlie Mcneal MD Aorta Ultrasound 01/04/17 Signed Impressions: Service Date/Time: Wednesday, January 04, 2017 22:47 - CONCLUSION: 1. There is no aneurysm. 2. If there is clinical suspicion of aortic dissection, then a CT angiogram of the aorta is recommended. Manish Villa MD Objective Remarks GENERAL: Well-nourished, well-developed middle aged male patient in [facility]. SKIN: Warm and dry. No rash. HEENT: Normocephalic. Atraumatic.Pupils equal and round. Mucous membranes pink and moist. NECK: Supple. Trachea midline. CARDIOVASCULAR: Regular rate and rhythm. S1, S2 noted. No murmur appreciated. RESPIRATORY: No accessory muscle use. Clear to auscultation. Breath sounds equal bilaterally. GASTROINTESTINAL: Abdomen soft, non-tender, nondistended. Normoactive bowel sounds x4. MUSCULOSKELETAL: No obvious deformities. Extremities without clubbing, cyanosis , or edema. Calves nontender/nonedematous bilaterally. NEUROLOGICAL: Awake and alert. No obvious cranial nerve deficits. Motor grossly within normal limits. Normal speech. PSYCHIATRIC: Appropriate mood; insight and judgment normal. Medications and IVs Current Medications Medications (Trade) Dose Ordered Sig/Monica Route Start Time Stop Time Status Last Admin (NS Flush) 2 ml UNSCH PRN IV FLUSH 01/04/17 19:45 01/05/17 05:02 (NS Flush) 2 ml BID IV FLUSH 01/04/17 21:00 01/06/17 09:56 (Narcan Inj) 0.4 mg UNSCH PRN IV 01/04/17 19:45 (SoluMEDROL INJ) 40 mg Q6HR IV PUSH 01/05/17 00:00 01/06/17 05:24 (Protonix) 40 mg DAILY PO 01/05/17 09:00 01/06/17 09:56 (Lovenox Inj) 90 mg Q12HR SQ 01/04/17 21:30 01/06/17 09:58 (KlonoPIN) 1 mg BID PO 01/04/17 22:30 01/06/17 09:57 (Benadryl) 50 mg HS PRN PO 01/04/17 22:30 01/06/17 01:59 (Tylenol) 650 mg Q6H PRN PO 01/05/17 09:00 01/05/17 09:20 (Spruce 5-325 Mg) 1 tab Q4H PRN PO 01/05/17 09:00 (Spruce 7.5-325 Mg) 1 tab Q4H PRN PO 01/05/17 09:00 01/05/17 13:58 (Ecotrin Ec) 81 mg DAILY PO 01/05/17 09:00 01/06/17 09:56 Levofloxacin 750 mg 750 mg DAILY PO 01/07/17 09:00 UNV (Coumadin Consult Pharmacy) 0 ml @ 0 mls/hr UNSCH OTHER 01/06/17 10:15 UNV A/P Problem List: (1) Left leg DVT ICD Code: I82.402 Status: Acute (2) COPD exacerbation ICD Code: J44.1 Status: Acute (3) Chest pain ICD Code: R07.9 Status: Acute (4) Dizziness ICD Code: R42 Status: Chronic Assessment and Plan 61 y/o male with history of COPD who presented with COPD exacerbation and left leg DVT: Left leg DVT - Left lower extremity Doppler US positive for occlusive deep venous thrombosis left posterior tibial vein. - Continue Lovenox 90 mg subq q12h - Plan to transition to Coumadin - block and case maker to assist with arranging outpatient INR checks Chest pain - 2D echocardiogram to evaluate cardiac structure and function - continuous cardiac telemetry to monitor cardiac rate and to evaluate for arrhythmia - Monitor vital signs q4h - ACS ruled out with negative serial cardiac enzymes and EKG without ischemic changes - consult cardiology - nuclear stress test normal - await echo, cleared by cardiology if normal Acute COPD exacerbation with Pneumonia: CXR images reviewed, shows LLL infiltrate - Continue Antibiotics with Levaquin 750 mg IV q24h, transition to po - Continue Solumedrol 40 mg IV q6h - Duonebulizers q6h monica and q2h prn wheezing - much improved, no further wheezing - obtain home O2 walk test Dizziness - Carotid ultrasound unremarkable - checking echo as above - dizziness improved BP variation between arms - Aortic ultrasound negative for aneurysm - check bp both arms, variable results, most recently with same BP in both arms - no pulse deficit noted Anxiety - resume home clonazepam Insomnia - Diphenhydramine 50 mg p.o. qhs PRN insomnia DVT Prophylaxis: on full strength lovenox Discharge Planning Await echocardiogram. Case management to assist with possibly arranging [facility] for outpatient INR checks. 1500hrs: The patient's echocardiogram resulted, EF 50-55%. He passed home O2 walk test, does not need home oxygen. Case management has arranged [facility] nursing for INR checks. Patient is satisfied with this. Instructed to monitor daily BP, record findings, and report to PCP. He will be discharged. Discharge patient to home with [facility] nursing Condition on discharge: Improved Heart Healthy Diet as tolerated Ad Margarita activity Rx written: Lovenox 90mg sq q12h #10, Coumadin 5mg daily, Levaquin 750mg qd #5, Medrol dosepak, protonix 40mg qd, lipitor 20mg hs Follow-up with primary care physician at the [facility] INR checks as outpatient Problem Qualifiers (1) Left leg DVT: Qualified Code: I82.442 - Acute deep vein thrombosis (DVT) of tibial vein of left lower extremity Maria C Orlando PA-C Jan 06, 2017 10:18 am
--- NOTE | 2017-01-06 10:20 | HHI.FF ---
Face to Face Verification Diagnosis: (1) Pneumonia (2) COPD exacerbation (3) Left leg DVT (4) Anticoagulated on Coumadin Home Health Nursing Order: Medical education Signs/symptoms of disease process Nursing assessment with vital signs Instructions: Needs INR checks every 2-3days for the first 2 weeks, then weekly. INR goal 2.0- 3.0. I have seen patient Josue Chiu on 01/06/17. My clinical findings support the need for the requested home health care services because: Deconditioned w/ increased weakness Med compliance is questionable High risk of falls I certify that my clinical findings support that this patient is homebound because: Unsteady gait/balance Unable to use public transportation Maria C Orlando PA-C Jan 06, 2017 10:20 am
--- NOTE | 2017-01-06 14:44 | ECHRPT ---
Indication: Chest pain, unspecified CONCLUSIONS Normal left ventricular size. Wall thickness is normal. The left ventricular systolic function is low normal with an estimated ejection fraction in the rang e of 50- 55%. Trace mitral valve regurgitation. The estimated pulmonary arterial pressure is 33 mmHg. BP: 117 / 58 HR: 97 Rhythm: Sinus MEASUREMENTS (Male / Female) Normal Values Technical Quality:Good 2D ECHO LV Diastolic Diameter PLAX 5.1 cm 4.2 - 5.9 / 3.9 - 5.3 cm LV Systolic Diameter PLAX 3.8 cm IVS Diastolic Thickness 1.1 cm 0.6 - 1.0 / 0.6 - 0.9 cm LVPW Diastolic Thickness 0.7 cm 0.6 - 1.0 / 0.6 - 0.9 cm LV Relative Wall Thickness 0.4 RV Internal Dim ED PLAX 2.0 cm LA Systolic Diameter LX 3.3 cm 3.0 - 4.0 / 2.7 - 3.8 cm M-MODE Aortic Root Diameter MM 3.5 cm AV Cusp Separation MM 2.1 cm DOPPLER Mitral E Point Velocity 94.3 cm/s Mitral A Point Velocity 72.1 cm/s Mitral E to A Ratio 1.3 TR Peak Velocity 263.0 cm/s TR Peak Gradient 27.7 mmHg FINDINGS LEFT VENTRICLE Normal left ventricular size. Wall thickness is normal. The left ventricular systolic function is low normal with an estimated ejection fraction in the rang e of 50- 55%. RIGHT VENTRICLE Normal right ventricular size and systolic function. LEFT ATRIUM The left atrial size is normal. RIGHT ATRIUM The right atrial size is normal. ATRIAL SEPTUM Normal atrial septal thickness without atrial level shunting by limited color doppler interrogation. AORTA The aortic root and proximal ascending aorta are normal in size on limited imaging. MITRAL VALVE Trace mitral valve regurgitation. AORTIC VALVE Trileaflet aortic valve. No aortic valve stenosis or regurgitation. TRICUSPID VALVE The estimated pulmonary arterial pressure is 33 mmHg. PULMONARY VALVE The pulmonary valve is not well visualized. VESSELS The inferior vena cava is normal in size. PERICARDIUM No pericardial effusion. Randy Dang MD (Electronically Signed) Final Date:06 January 2017 14:43
[2017-01-06] MEDS ORDERED: WARFARIN SOD 5 MG TAB PO SCH (16:00)
[2017-01-06] MEDS ORDERED: LIPI20TA PO (17:28)
[2017-01-07] MEDS ORDERED: LEVOFLOXACIN 750 MG TAB PO SCH (09:00)
== END 2017-01-06 16:05 | disposition home or self-care (01) ==
LOC: NEPE 14:26 → NEDA 19:45 → NEPGCP 22:02
PROVIDERS: ADMIT Internal Medicine; ATTEND Internal Medicine
DX: J44.1 Chronic obstructive pulmonary disease with (acute) exacerbation (principal); J18.9 Pneumonia, unspecified organism; I82.442 Acute embolism and thrombosis of left tibial vein; F41.9 Anxiety disorder, unspecified; G47.00 Insomnia, unspecified; R42 Dizziness and giddiness; I10 Essential (primary) hypertension; Z79.899 Other long term (current) drug therapy; Z79.82 Long term (current) use of aspirin; M79.662 Pain in left lower leg; M79.602 Pain in left arm; J43.2 Centrilobular emphysema; Z77.090 Contact with and (suspected) exposure to asbestos
CPT/HCPCS: 71020; 71275; 76775; 78452; 80048; 80053; 80061; 82550; 82948; 83036; 83735; 84484; 85025; 85379; 85610; 85730; 93005; 93017; 93306; 93880; 93971; 94620; 94640; 94664; 96365; 96366; 96372; 96375; 96376; 99285; A9502; G0378; J0456; J0696; J1650; J1956; J2785; J2920; J2930; J7050; Q0163; Q9967

== ENCOUNTER 2017-01-28 12:08 | Observation (INO) | payer OTHER ==
[~2017-01-28] VITALS: Ht 188 cm; Wt 95.0 kg
[2017-01-28] VITALS (12 sets, daily range): BP systolic 129–163; BP diastolic 64–91; PULSE 67–90; RESP 16–38; TEMP 97.7–98.1; O2SAT 94–98
[~2017-01-28 12:08] MED LIST changes: +ALBUAER3 INH; +ASPI81CH CHEW; -CLON1 PO; +CLON1TAB PO; +COUM5TAB PO; +ENOX100P SQ; +LEVA750T9 PO; +LIPI20TA PO; +MEDR4PAK PO; +PANT40TA3 PO; -RISP1 PO
--- NOTE | 2017-01-28 13:29 | PD ---
HPI Chief Complaint: Respiratory Distress Time Seen by Provider: 13:25 Travel History International Travel<30 days: No Contact w/Intl Traveler<30days: No Traveled to known affect area: No History of Present Illness HPI 61-year-old male that presents to the ED for evaluation of shortness of breath and possible reaction to his anticoagulation. Per patient he was seen here earlier this month for evaluation of shortness of breath as well as what appears to be DVT. Patient states that he was put on Lovenox and Coumadin and she reports that he's been having a reaction to Lovenox. He was discharged from here and apparently he was seen at the [facility] in [place] about 2 days after discharge for evaluation of continued syncopal episodes. They attributed this to Lovenox. [facility] and put him on Xarelto. He developed a reaction to the similar to the Lovenox and he discontinue this as well and he was put on Pradaxa. He apparently discontinue this and was put back on Coumadin with Lovenox and he continues to have the symptoms. Per patient his reaction is usually sensation of feeling like something is falling to his body. Per patient his left side of the body feels "weird". Per patient [facility] and he was told to come here. Per patient he feels like he cannot pass out all the time. He has a history of COPD. He uses a walker to get about. He has not hit his head or fall. [facility] the [facility] for evaluation to see if he still has a blood clot and to see what else can be done for him. Of note patient does have multiple allergies to different medications and also has a history of anxiety. He reports that he has some chest pain as well as shortness of breath. Per patient he does not believe this is related to his COPD. PFSH Past Medical History Asthma: No Blood Disorders: No Anxiety: Yes Depression: No Cancer: No Cardiovascular Problems: No Chemotherapy: No COPD: Yes Endocrine: No Genitourinary: No Immune Disorder: No Musculoskeletal: No Neurologic: No Psychiatric: Yes Reproductive: No Respiratory: Yes Radiation Therapy: No Sleep Apnea: Yes Past Surgical History Tonsillectomy: Yes Other Surgery: Yes Social History Alcohol Use: No Tobacco Use: No Substance Use: Yes Allergies-Medications (Allergen,Severity, Reaction): Coded Allergies: dabigatran etexilate (Verified Allergy, Severe, Hives, 01/28/17) enoxaparin (Verified Allergy, Severe, Rash, 01/28/17) lisinopril (Unverified Allergy, Severe, EDEMA, 01/28/17) rivaroxaban (Verified Allergy, Severe, Hives, 01/28/17) acebutolol (Unverified Adverse Reaction, Intermediate, feeling of nervousness, feeling of skin coming off, , 01/28/17) atenolol (Unverified Adverse Reaction, Intermediate, feeling of nervousness, feeling of skin coming off, , 01/28/17) betaxolol (Unverified Adverse Reaction, Intermediate, feeling of nervousness, feeling of skin coming off, , 01/28/17) carvedilol (Unverified Adverse Reaction, Intermediate, feeling of nervousness, feeling of skin coming off, , 01/28/17) labetalol (Unverified Adverse Reaction, Intermediate, feeling of nervousness, feeling of skin coming off, , 01/28/17) metoprolol (Unverified Adverse Reaction, Intermediate, feeling of nervousness, feeling of skin coming off, , 01/28/17) nebivolol (Unverified Adverse Reaction, Intermediate, feeling of nervousness, feeling of skin coming off, , 01/28/17) pindolol (Unverified Adverse Reaction, Intermediate, feeling of nervousness, feeling of skin coming off, , 01/28/17) propranolol (Unverified Adverse Reaction, Intermediate, feeling of nervousness, feeling of skin coming off, , 01/28/17) sotalol (Unverified Adverse Reaction, Intermediate, feeling of nervousness , feeling of skin coming off, , 01/28/17) timolol (Unverified Adverse Reaction, Intermediate, feeling of nervousness , feeling of skin coming off, , 01/28/17) Uncoded Allergies: BLOOD PRESSURE PILLS (Allergy, Severe, ITCHING, 01/04/17) Reported Meds & Prescriptions Reported Meds & Active Scripts Active Coumadin (Warfarin) 5 Mg Tab 5 Mg PO DAILY Pantoprazole (Pantoprazole Sodium) 40 Mg Tab 40 Mg PO DAILY Reported Aspirin 81 Mg Chew 81 Mg CHEW ONCE Proair Hfa 8.5 GM Inh (Albuterol Sulfate) 90 Mcg/Act Aer 1 Puff INH Q4H PRN 108 mcg/actuation Clonazepam 1 Mg Tab 1 Mg PO BID Review of Systems Except as stated in HPI: all other systems reviewed are Neg Physical Exam Narrative GENERAL: SKIN: Warm and dry. HEAD: Atraumatic. Normocephalic. EYES: Pupils equal and round. No scleral icterus. No injection or drainage. ENT: No nasal bleeding or discharge. Mucous membranes pink and moist. Tongue is midline. No uvula deviation. NECK: Trachea midline. No JVD. CARDIOVASCULAR: Regular rate and rhythm. No murmurs, S3, S4. RESPIRATORY: No accessory muscle use. Minor wheezing heard in the lower lung pérez. Breath sounds equal bilaterally. GASTROINTESTINAL: Abdomen soft, non-tender, nondistended. Hepatic and splenic margins not palpable. MUSCULOSKELETAL: Extremities without clubbing, cyanosis, or edema. No obvious deformities. Full range of motion of the upper and lower extremities bilaterally. 2+ pulses bilaterally. NEUROLOGICAL: Awake and alert. No obvious cranial nerve deficits. Motor grossly within normal limits. Five out of 5 muscle strength in the arms and legs. Normal speech. PSYCHIATRIC: Appropriate mood and affect; insight and judgment normal. Data Data Last Documented VS Vital Signs Date Time Temp Pulse Resp B/P (MAP) Pulse Ox O2 Delivery O2 Flow Rate FiO2 01/28/17 15:45 76 16 129/64 (85) 78 16 150/91 (110) 01/28/17 13:28 97 Room Air 01/28/17 12:10 97.7 Orders Orders Electrocardiogram (01/28/17 13:11) Complete Blood Count With Diff (01/28/17 13:11) Comprehensive Metabolic Panel (01/28/17 13:11) Troponin I (01/28/17 13:11) Prothrombin Time / Inr (Pt) (01/28/17 13:11) Act Partial Throm Time (Ptt) (01/28/17 13:11) Magnesium (Mg) (01/28/17 13:11) Thyroid Stimulating Hormone (01/28/17 13:11) Chest, Single Ap (01/28/17 13:11) Ct Brain W/O Iv Contrast(Rout) (01/28/17 13:11) Iv Access Insert/Monitor (01/28/17 13:11) Ecg Monitoring (01/28/17 13:11) Oximetry (01/28/17 13:11) Orthostatic Vital Signs (01/28/17 13:11) Us Leg Venous Doppler (01/28/17 ) Ct Pulmonary Angiogram (01/28/17 ) Iohexol 350 Inj (Omnipaque 350 Inj) (01/28/17 15:16) Admit Order (Ed Use Only) (01/28/17 16:45) Labs Laboratory Tests Test 01/28/17 13:35 White Blood Count 6.7 TH/MM3 Red Blood Count 5.06 MIL/MM3 Hemoglobin 14.7 GM/DL Hematocrit 44.3 % Mean Corpuscular Volume 87.6 FL Mean Corpuscular Hemoglobin 29.0 PG Mean Corpuscular Hemoglobin Concent 33.1 % Red Cell Distribution Width 13.4 % Platelet Count 262 TH/MM3 Mean Platelet Volume 7.5 FL Neutrophils (%) (Auto) 56.7 % Lymphocytes (%) (Auto) 30.3 % Monocytes (%) (Auto) 10.3 % Eosinophils (%) (Auto) 2.3 % Basophils (%) (Auto) 0.4 % Neutrophils # (Auto) 3.8 TH/MM3 Lymphocytes # (Auto) 2.0 TH/MM3 Monocytes # (Auto) 0.7 TH/MM3 Eosinophils # (Auto) 0.2 TH/MM3 Basophils # (Auto) 0.0 TH/MM3 CBC Comment DIFF FINAL Differential Comment Prothrombin Time 10.4 SEC Prothromb Time International Ratio 0.9 RATIO Activated Partial Thromboplast Time 27.1 SEC Blood Urea Nitrogen 21 MG/DL Creatinine 1.17 MG/DL Random Glucose 82 MG/DL Total Protein 6.7 GM/DL Albumin 3.4 GM/DL Calcium Level 8.5 MG/DL Magnesium Level 2.3 MG/DL Alkaline Phosphatase 84 U/L Aspartate Amino Transf (AST/SGOT) 23 U/L Alanine Aminotransferase (ALT/SGPT) 44 U/L Total Bilirubin 0.3 MG/DL Sodium Level 142 MEQ/L Potassium Level 4.2 MEQ/L Chloride Level 107 MEQ/L Carbon Dioxide Level 26.6 MEQ/L Anion Gap 8 MEQ/L Estimat Glomerular Filtration Rate 64 ML/MIN Troponin I LESS THAN 0.02 NG/ML Thyroid Stimulating Hormone 3rd Gen 0.803 uIU/ML MDM Medical Decision Making Medical Screen Exam Complete: Yes Emergency Medical Condition: Yes Medical Record Reviewed: Yes Interpretation(s) CBC & BMP Diagram 01/28/17 13:35 Total Protein 6.7, Albumin 3.4, Calcium Level 8.5, Magnesium Level 2.3, Alkaline Phosphatase 84, Aspartate Amino Transf (AST/SGOT) 23, Alanine Aminotransferase (ALT/SGPT) 44, Total Bilirubin 0.3 coags WNL troponin and CKMB negative Last Impressions Head CT 01/28/17 1311 Signed Impressions: Service Date/Time: Saturday, January 28, 2017 15:06 - CONCLUSION: Normal examination. Cj Barrett Jr., MD Chest X-Ray 01/28/17 1311 Signed Impressions: Service Date/Time: Saturday, January 28, 2017 13:14 - CONCLUSION: No acute disease. Sabino Pak MD FACR Lower Extremity Ultrasound 01/28/17 0000 Signed Impressions: Service Date/Time: Saturday, January 28, 2017 13:42 - CONCLUSION: Negative for deep venous thrombosis. Sabino Pak MD FACR CT Angiography 01/28/17 0000 Signed Impressions: Service Date/Time: Saturday, January 28, 2017 15:08 - CONCLUSION: 1. No pulmonary emboli. 2. Emphysematous changes. 3. Tiny hepatic cysts. Cj Barrett Jr., MD Differential Diagnosis COPD exacerbation versus DVT versus pneumonia versus syncope versus presyncope versus reaction to medication versus reaction to anticoagulation Narrative Course 61-year-old male that presents to the ED for evaluation of chest pain and possible reaction to medication. Patient also has left leg pain. Labs and imaging were ordered. Labs and imaging showed no sign of acute disease. No sign of PE or DVT anymore. Unclear if patient he needs anticoagulation at this time. Patient still very symptomatic when she stands up. His O2 does drop although his blood pressure goes up instead of down. He does not appear to have orthostatic hypotension. This time recommendation is for admission for further evaluation. Patient is given with this plan. Case discussed with Dr. Stallings for agrees to admission for obs. Diagnosis Primary Impression: Dizziness Additional Impression: COPD exacerbation Admitting Information Admitting Physician Requests: Observation Shreyas Chung Jan 28, 2017 13:29
--- NOTE | 2017-01-28 13:54 | RADRPT ---
EXAM DATE/TIME: 01/28/2017 13:14 [facility] COMPARISON: No previous studies available for comparison. INDICATIONS : Shortness of breath. MEDICAL HISTORY : Chronic obstructive pulmonary disease. SURGICAL HISTORY : Right elbow surgery. ENCOUNTER: Initial ACUITY: 1 day PAIN SCORE: 0/10 LOCATION: Bilateral chest FINDINGS: A single view of the chest demonstrates the lungs to be symmetrically aerated without evidence of mas s, infiltrate or effusion. The cardiomediastinal contours are unremarkable. Osseous structures are intact. CONCLUSION: No acute disease. Sabino Pak MD FACR on January 28, 2017 at 13:52 Board Certified Radiologist. This report was verified electronically.
[2017-01-28 14:30] LABS: AUTOMATED NEUTROPHIL # 3.8 TH/MM3 (1.8-7.7); BASOPHIL % 0.4 % (0.0-2.0); EOSINOPHIL # 0.2 TH/MM3 (0-0.4); EOSINOPHIL % 2.3 % (0.0-4.0); HEMATOCRIT 44.3 % (39.0-51.0); HEMO FLAGS DIFF FINAL; LYMPH % 30.3 % (9.0-44.0); MEAN CELL VOLUME 87.6 FL (80.0-100.0); MEAN CORPUSCULAR HGB CONC 33.1 % (32.0-36.0); MONO % 10.3 % (0.0-8.0); NEUT % 56.7 % (16.0-70.0); PLATELET COUNT 262 TH/MM3 (150-450); RED BLOOD COUNT 5.06 MIL/MM3 (4.50-5.90); RED CELL DISTRIBUTION WIDTH 13.4 % (11.6-17.2); WHITE BLOOD COUNT 6.7 TH/MM3 (4.0-11.0)
[2017-01-28 14:37] LABS: APTT (PATIENT) 27.1 SEC (24.3-30.1); INTERNATIONAL NORMALIZED RATIO 0.9 RATIO; PROTHROMBIN TIME - PATIENT 10.4 SEC (9.8-11.6)
--- NOTE | 2017-01-28 14:42 | RADRPT ---
EXAM DATE/TIME: 01/28/2017 13:42 [facility] COMPARISON: US LEG LEFT VENOUS DOPPLER, January 04, 2017, 17:50. INDICATIONS : Left leg pain. MEDICAL HISTORY : Chronic obstructive pulmonary disease. Anxiety. SURGICAL HISTORY : Right elbow surgery. ENCOUNTER: Subsequent ACUITY: 3 days PAIN SCORE: 5/10 LOCATION: Left leg. TECHNIQUE: Venous ultrasound of the leg was performed from the inguinal ligament to the proximal calf. Real-kodak e, color Doppler and spectral tracing, compression and augmentation techniques were used. FINDINGS: There is normal compressibility of the deep venous system from the inguinal region to the proximal ca lf. No echogenic clot is seen in the lumen of the common femoral, femoral, popliteal, and posterior tibial veins. There is a normal response of the venous system to proximal and distal augmentation an d respiration. CONCLUSION: Negative for deep venous thrombosis. Sabino Pak MD FACR on January 28, 2017 at 14:40 Board Certified Radiologist. This report was verified electronically.
[2017-01-28 14:48] LABS: ALT (GPT) 44 U/L (12-78); ANION GAP 8 MEQ/L (5-15); AST (GOT) 23 U/L (15-37); BICARBONATE 26.6 MEQ/L (21.0-32.0); BLOOD UREA NITROGEN 21 MG/DL (7-18); CHLORIDE 107 MEQ/L (98-107); GLOMERULAR FILTRATION RATE 64 ML/MIN (>89); MAGNESIUM 2.3 MG/DL (1.5-2.5); POTASSIUM 4.2 MEQ/L (3.5-5.1); SODIUM (NA) 142 MEQ/L (136-145)
[2017-01-28 14:56] LABS: ALKALINE PHOSPHATASE 84 U/L (45-117); TOTAL BILIRUBIN ADULT 0.3 MG/DL (0.2-1.0)
[2017-01-28] MEDS ORDERED: IBUPROFEN 600 MG TAB PO ONE (15:00)
[2017-01-28] MEDS ORDERED: IOHEXOL 350 MG/ML 10 ML VIAL (for RAD DIAG) IVCONTRAST ONE (15:16)
--- NOTE | 2017-01-28 15:27 | RADRPT ---
EXAM DATE/TIME: 01/28/2017 15:06 [facility] COMPARISON: No previous studies available for comparison. INDICATIONS : Dizziness RADIATION DOSE: 35.56 CTDIvol (mGy) MEDICAL HISTORY : Cerebrovascular disease. SURGICAL HISTORY : Right elbow ENCOUNTER: Initial ACUITY: 1 day PAIN SCALE: 0/10 LOCATION: cranial TECHNIQUE: Multiple contiguous axial images were obtained of the head. Using automated exposure control and adj ustment of the mA and/or kV according to patient size, radiation dose was kept as low as reasonably a chievable to obtain optimal diagnostic quality images. DICOM format image data is available electro nically for review and comparison. FINDINGS: CEREBRUM: The ventricles are normal for age. No evidence of midline shift, mass lesion, hemorrhage or acute in farction. No extra-axial fluid collections are seen. POSTERIOR FOSSA: The cerebellum and brainstem are intact. The 4th ventricle is midline. The cerebellopontine angle i s unremarkable. EXTRACRANIAL: The visualized portion of the orbits is intact. SKULL: The calvaria is intact. No evidence of skull fracture. CONCLUSION: Normal examination. Cj Barrett Jr., MD on January 28, 2017 at 15:25 Board Certified Radiologist. This report was verified electronically.
--- NOTE | 2017-01-28 15:46 | RADRPT ---
EXAM DATE/TIME: 01/28/2017 15:08 [facility] COMPARISON: CT PULMONARY ANGIOGRAM, January 04, 2017, 18:48. INDICATIONS : Left sided weakness, short of breath, chest pain. IV CONTRAST: 100 cc Omnipaque 350 (iohexol) IV RADIATION DOSE: 23.24 CTDIvol (mGy) MEDICAL HISTORY : Cerebrovascular disease. SURGICAL HISTORY : Right elbow. ENCOUNTER: Initial ACUITY: 1 day PAIN SCALE: 6/10 LOCATION: Left chest TECHNIQUE: Volumetric scanning of the chest was performed using a pulmonary embolism protocol MIP images were re constructed. Using automated exposure control and adjustment of the mA and/or kV according to patien t size, radiation dose was kept as low as reasonably achievable to obtain optimal diagnostic quality images. DICOM format image data is available electronically for review and comparison. Follow-up recommendations for detected pulmonary nodules are based at a minimum on nodule size and pa tient risk factors according to Fleischner Society Guidelines. FINDINGS: PULMONARY ARTERIES: No filling defects are seen in the pulmonary arteries through the segmental level. LUNGS: Moderate emphysematous changes are seen most pronounced within the upper lobes as well as the superio r segments of the lower lobes. Mild atelectasis. No infiltrate or mass. PLEURAE: There is no pleural thickening or pleural effusion. MEDIASTINUM: There is good visualization of the great vessels of the middle mediastinum. No evidence of mediastin al or hilar adenopathy/mass. MUSCULOSKELETAL: Within normal limits for patient age. MISCELLANEOUS: Small hepatic cysts are seen. The largest measures 1.6 cm within segment 3. Hounsfield units are nega tive to. CONCLUSION: 1. No pulmonary emboli. 2. Emphysematous changes. 3. Tiny hepatic cysts. Cj Barrett Jr., MD on January 28, 2017 at 15:26 Board Certified Radiologist. This report was verified electronically.
[2017-01-28] MEDS ORDERED: ALBUTEROL SULFATE 90 MCG/ACT HFA 8 GM INHALER INH PRN (17:00)
[2017-01-28] MEDS ORDERED: RESP: ALBUTEROL 2.5 MG/IPRATROPIUM 0.5 MG NEB (PRN) NEB (17:00)
[2017-01-28] MEDS ORDERED: PANTOPRAZOLE SOD 40 MG DELAYED RELEASE TAB PO ONE (17:00)
[2017-01-28] MEDS ORDERED: SODIUM CHLORIDE 0.9% FLUSH 10 ML FLUSH IV FLUSH PRN (17:00)
--- NOTE | 2017-01-28 17:12 | HHI.HP ---
[facility] Admission Diagnosis dizzyness, COPD Diagnoses: (1) Anxiety Diagnosis: Principal (2) Syncope Diagnosis: Principal (3) Chest pain Diagnosis: Secondary (4) Dizziness Diagnosis: Principal (5) COPD exacerbation Diagnosis: Principal Chief Complaint: Dizziness possible COPD Travel History International Travel<30 Days: No Contact w/Intl Traveler <30 Da: No Traveled to Known Affected Are: No History of Present Illness Patient is a 61-year-old male that presents to the ED for evaluation of shortness of breath and possible reaction to his anticoagulation. Per patient he was seen here earlier this month for evaluation of shortness of breath as well as what appears to be DVT in the left lower extremity. Patient states that he was put on Lovenox and Coumadin and he reports that he's been having a reaction to Lovenox. He was discharged from here and apparently he was seen at the [facility] in [place] about 2 days after discharge for evaluation of continued syncopal episodes. They attributed this to Lovenox. [facility] and put him on Xarelto. He developed a reaction that was similar to the Lovenox and he discontinue this as well and he was put on Pradaxa. He apparently discontinue this and was put back on Coumadin with Lovenox and he continues to have the symptoms. Per patient his reaction is usually sensation of feeling like something is falling to his body. Per patient his left side of the body feels "weird". Per patient he went to the [facility] today and he was told to come here. Per patient he feels like he can pass out all the time. He has a history of COPD. He uses a walker to get about. He has not hit his head or fall. [facility] to see if he still has a blood clot and to see what else can be done for him. Of note patient does have multiple allergies to different medications and also has a history of anxiety. He reports that he has some chest pain as well as shortness of breath. Per patient he does not believe this is related to his COPD. Suspect this is related to his COPD and anxiety issues Patient was found not to have a blood clot of the left lower extremity anymore. We will stop Anticoagulation since he has lots of issues with that and continue SCDs and HYUN wallace Review of Systems Constitutional: COMPLAINS OF: Fatigue, DENIES: Fever, Weight gain, Weight loss , Chills, Dizziness, Change in appetite Endocrine: DENIES: Heat/cold intolerance, Polydipsia, Polyuria, Polyphagia Eyes: DENIES: Blurred vision, Diplopia, Eye inflammation, Eye pain, Vision loss , Photosensitivity Ears, nose, mouth, throat: DENIES: Tinnitus, Hearing loss, Vertigo, Nasal discharge, Oral lesions, Throat pain, Hoarseness, Ear Pain, Running Nose, Epistaxis Respiratory: COMPLAINS OF: Cough, Sputum production, Shortness of breath, DENIES: Apneas, Snoring, Wheezing, Hemoptysis Cardiovascular: COMPLAINS OF: Chest pain, Syncope, Dyspnea on Exertion, DENIES : Palpitations Gastrointestinal: DENIES: Abdominal pain, Black stools, Bloody stools, Constipation, Diarrhea Genitourinary: DENIES: Sexual dysfunction, Urinary frequency, Urinary incontinence Musculoskeletal: DENIES: Joint pain, Muscle aches, Stiffness, Joint Swelling Integumentary: DENIES: Abnormal pigmentation, Nail changes, Pruritus, Rash Hematologic/lymphatic: DENIES: Bruising, Lymphadenopathy Immunologic/allergic: DENIES: Eczema, Urticaria Neurologic: COMPLAINS OF: Abnormal gait, Poor Balance, DENIES: Headache, Localized weakness, Seizures, Speech Problems, Tremor Psychiatric: COMPLAINS OF: Anxiety, Depression, Agitation, DENIES: Confusion, Mood changes, Hallucinations Past Family Social History Past Medical History Anxiety depression COPD Psychiatric disorder Sleep apnea PTSD Past Surgical History Tonsillectomy. Right elbow repair Reported Medications Reported Meds & Active Scripts Active Coumadin (Warfarin) 5 Mg Tab 5 Mg PO DAILY Pantoprazole (Pantoprazole Sodium) 40 Mg Tab 40 Mg PO DAILY Reported Aspirin 81 Mg Chew 81 Mg CHEW ONCE Proair Hfa 8.5 GM Inh (Albuterol Sulfate) 90 Mcg/Act Aer 1 Puff INH Q4H PRN 108 mcg/actuation Clonazepam 1 Mg Tab 1 Mg PO BID Allergies: Coded Allergies: dabigatran etexilate (Verified Allergy, Severe, Hives, 01/28/17) enoxaparin (Verified Allergy, Severe, Rash, 01/28/17) lisinopril (Unverified Allergy, Severe, EDEMA, 01/28/17) rivaroxaban (Verified Allergy, Severe, Hives, 01/28/17) acebutolol (Unverified Adverse Reaction, Intermediate, feeling of nervousness, feeling of skin coming off, , 01/28/17) atenolol (Unverified Adverse Reaction, Intermediate, feeling of nervousness, feeling of skin coming off, , 01/28/17) betaxolol (Unverified Adverse Reaction, Intermediate, feeling of nervousness, feeling of skin coming off, , 01/28/17) carvedilol (Unverified Adverse Reaction, Intermediate, feeling of nervousness, feeling of skin coming off, , 01/28/17) labetalol (Unverified Adverse Reaction, Intermediate, feeling of nervousness, feeling of skin coming off, , 01/28/17) metoprolol (Unverified Adverse Reaction, Intermediate, feeling of nervousness, feeling of skin coming off, , 01/28/17) nebivolol (Unverified Adverse Reaction, Intermediate, feeling of nervousness, feeling of skin coming off, , 01/28/17) pindolol (Unverified Adverse Reaction, Intermediate, feeling of nervousness, feeling of skin coming off, , 01/28/17) propranolol (Unverified Adverse Reaction, Intermediate, feeling of nervousness, feeling of skin coming off, , 01/28/17) sotalol (Unverified Adverse Reaction, Intermediate, feeling of nervousness , feeling of skin coming off, , 01/28/17) timolol (Unverified Adverse Reaction, Intermediate, feeling of nervousness , feeling of skin coming off, , 01/28/17) Uncoded Allergies: BLOOD PRESSURE PILLS (Allergy, Severe, ITCHING, 01/04/17) Active Ordered Medications Current Medications Ibuprofen (Motrin) 600 mg ONCE ONCE PO ; Start 01/28/17 at 15:00; Stop 01/28/17 at 15:01; Status Cancel Iohexol (Omnipaque 350 Inj) 100 ml STK-MED ONCE IVCONTRAST Last administered on 01/28/17t 15:16; Start 01/28/17 at 15:16; Stop 01/28/17 at 15:17; Status DC Albuterol Sulfate (Proair Hfa Inh) 1 puff Q4H PRN INH SHORTNESS OF BREATH; Start 01/28/17 at 17:00; Status UNV Aspirin (Aspirin Chew) 81 mg ONCE CHEW ; Start 01/28/17 at 17:00; Status UNV Clonazepam (KlonoPIN) 1 mg BID PO ; Start 01/28/17 at 21:00; Status UNV Pantoprazole Sodium (Protonix) 40 mg DAILY PO ; Start 01/28/17 at 17:00; Status UNV Sodium Chloride 1,000 ml @ 100 mls/hr Q10H IV ; Start 01/28/17 at 16:50; Status UNV Sodium Chloride (NS Flush) 2 ml UNSCH PRN IV FLUSH FLUSH AFTER USING IV ACCESS ; Start 01/28/17 at 17:00; Status UNV Sodium Chloride (NS Flush) 2 ml BID IV FLUSH ; Start 01/28/17 at 21:00; Status UNV Family History Anxiety Social History History of tobacco abuse History of substance abuse Denies current alcohol or tobacco abuse recentLY Physical Exam Vital Signs Vital Signs Date Time Temp Pulse Resp B/P (MAP) Pulse Ox O2 Delivery O2 Flow Rate FiO2 01/28/17 15:45 76 16 129/64 (85) 78 16 150/91 (110) 01/28/17 13:28 18 97 Room Air 01/28/17 12:30 38 98 01/28/17 12:10 97.7 85 22 133/75 (94) 95 Physical Exam GENERAL: This is a well-nourished, well-developed patient, in no apparent distress. SKIN: No rashes, ecchymoses or lesions. Cool and dry. HEAD: Atraumatic. Normocephalic. No temporal or scalp tenderness. EYES: Pupils equal round and reactive. Extraocular motions intact. No scleral icterus. No injection or drainage. ENT: Nose without bleeding, purulent drainage or septal hematoma. Throat without erythema, tonsillar hypertrophy or exudate. Uvula midline. Airway patent. Tongue is midline NECK: Trachea midline. No JVD or lymphadenopathy. Supple, nontender, no meningeal signs. CARDIOVASCULAR: Regular rate and rhythm without murmurs, gallops, or rubs. S1 and S2 no S3 or S4 no heave or thrill RESPIRATORY: Few rhonchi and wheezes at bases. Breath sounds equal bilaterally, rales, or rhonchi. GASTROINTESTINAL: Abdomen soft, non-tender, nondistended. No hepato-splenomegaly , or palpable masses. No guarding. MUSCULOSKELETAL: Extremities without clubbing, cyanosis, or edema. No joint tenderness, effusion, or edema noted. No calf tenderness. Negative Homans sign bilaterally. NEUROLOGICAL: Awake and alert. Cranial nerves II through XII intact. Motor and sensory grossly within normal limits. Five out of 5 muscle strength in all muscle groups. Normal speech. Insight and judgment is good Mood and behaviors have normal Laboratory Laboratory Tests Test 01/28/17 13:35 White Blood Count 6.7 Red Blood Count 5.06 Hemoglobin 14.7 Hematocrit 44.3 Mean Corpuscular Volume 87.6 Mean Corpuscular Hemoglobin 29.0 Mean Corpuscular Hemoglobin Concent 33.1 Red Cell Distribution Width 13.4 Platelet Count 262 Mean Platelet Volume 7.5 Neutrophils (%) (Auto) 56.7 Lymphocytes (%) (Auto) 30.3 Monocytes (%) (Auto) 10.3 Eosinophils (%) (Auto) 2.3 Basophils (%) (Auto) 0.4 Neutrophils # (Auto) 3.8 Lymphocytes # (Auto) 2.0 Monocytes # (Auto) 0.7 Eosinophils # (Auto) 0.2 Basophils # (Auto) 0.0 CBC Comment DIFF FINAL Differential Comment Prothrombin Time 10.4 Prothromb Time International Ratio 0.9 Activated Partial Thromboplast Time 27.1 Blood Urea Nitrogen 21 Creatinine 1.17 Random Glucose 82 Total Protein 6.7 Albumin 3.4 Calcium Level 8.5 Magnesium Level 2.3 Alkaline Phosphatase 84 Aspartate Amino Transf (AST/SGOT) 23 Alanine Aminotransferase (ALT/SGPT) 44 Total Bilirubin 0.3 Sodium Level 142 Potassium Level 4.2 Chloride Level 107 Carbon Dioxide Level 26.6 Anion Gap 8 Estimat Glomerular Filtration Rate 64 Troponin I LESS THAN 0.02 Thyroid Stimulating Hormone 3rd Gen 0.803 Result Diagram: 01/28/17 1335 01/28/175 Imaging Last Impressions Head CT 01/28/17 1311 Signed Impressions: Service Date/Time: Saturday, January 28, 2017 15:06 - CONCLUSION: Normal examination. Cj Barrett Jr., MD Chest X-Ray 01/28/17 1311 Signed Impressions: Service Date/Time: Saturday, January 28, 2017 13:14 - CONCLUSION: No acute disease. Sabino Pak MD FACR Lower Extremity Ultrasound 01/28/17 0000 Signed Impressions: Service Date/Time: Saturday, January 28, 2017 13:42 - CONCLUSION: Negative for deep venous thrombosis. Sabino Pak MD FACR CT Angiography 01/28/17 0000 Signed Impressions: Service Date/Time: Saturday, January 28, 2017 15:08 - CONCLUSION: 1. No pulmonary emboli. 2. Emphysematous changes. 3. Tiny hepatic cysts. MD Irena May Jr. VTE Risk Assessment Caprini VTE Risk Assessment: Mod/High Risk (score >= 2) VTE Pharm Contraindication: Patient refusal Caprini Risk Assessment Model Point Value = 1 Point Value = 2 Point Value = 3 Point Value = 5 Age 41-60 Minor surgery BMI > 25 kg/m2 Swollen legs Varicose veins or History of unexplained or recurrent spontaneous Oral contraceptives or hormone replacement Sepsis (< 1 month) Serious lung disease, including pneumonia (< 1 month) Abnormal pulmonary function Acute myocardial infarction Congestive heart failure (< 1 month) History of inflammatory bowel disease Medical patient at bed rest Age 61-74 Arthroscopic surgery Major open surgery (> 45 min) Laparoscopic surgery (> 45 min) Malignancy Confined to bed (> 72 hours) Immobilizing plaster cast Central venous access Age >= 75 History of VTE Family history of VTE Factor V Leiden Prothrombin 15810M Lupus anticoagulant Anticardiolipin antibodies Elevated serum homocysteine Heparin-induced thrombocytopenia Other congenital or acquired thrombophilia Stroke (< 1 month) Elective arthroplasty Hip, pelvis, or leg fracture Acute spinal cord injury (< 1 month) Prophylaxis Regimen Total Risk Factor Score Risk Level Prophylaxis Regimen 0-1 Low Early ambulation 2 Moderate Order ONE of the following: *Sequential Compression Device (SCD) *Heparin 5000 units SQ BID 3-4 Higher Order ONE of the following medications: *Heparin 5000 units SQ TID *Enoxaparin/Lovenox 40 mg SQ daily (WT < 150 kg, CrCl > 30 mL/min) *Enoxaparin/Lovenox 30 mg SQ daily (WT < 150 kg, CrCl > 10-29 mL/min) *Enoxaparin/Lovenox 30 mg SQ BID (WT < 150 kg, CrCl > 30 mL/min) AND/OR *Sequential Compression Device (SCD) 5 or more Highest Order ONE of the following medications: *Heparin 5000 units SQ TID (Preferred with Epidurals) *Enoxaparin/Lovenox 40 mg SQ daily (WT < 150 kg, CrCl > 30 mL/min) *Enoxaparin/Lovenox 30 mg SQ daily (WT < 150 kg, CrCl > 10-29 mL/min) *Enoxaparin/Lovenox 30 mg SQ BID (WT < 150 kg, CrCl > 30 mL/min) AND *Sequential Compression Device (SCD) Assessment and Plan Problem List: (1) Chest pain ICD Code: R07.9 - Chest pain, unspecified Status: Acute (2) Syncope ICD Code: R55 - Syncope and collapse (3) Anxiety ICD Code: F41.9 - Anxiety disorder, unspecified (4) COPD exacerbation ICD Code: J44.1 - Chronic obstructive pulmonary disease with (acute) exacerbation Status: Acute (5) Dizziness ICD Code: R42 - Dizziness and giddiness Status: Chronic Assessment and Plan COPD exacerbation continue on DuoNeb some Mucinex and incentive spirometry Vasovagal syncope versus presyncope we'll get an echo and carotids Chest pain rule out cardiac issues will trend troponins and get an echo Chronic anxiety and possible reaction to medication continue on his home medications for anxiety Continue on an aspirin continue on Protonix continue on SCDs and Hyun as well as any Coumadin or warfarin just aspirin We'll monitor him here throughout the admission we'll get physical therapy and occupational therapy to eval and treat continue on DuoNeb some Mucinex and incentive spirometry will get a walk test patient will be followed throughout admission for any other issues that may arise Code Status Full code Discussed Condition With Discussed with ER, RN, patient, and his family Sabino Stallings DO Jan 28, 2017 17:12
[2017-01-28] MEDS ORDERED: ASPIRIN 81 MG CHEW TAB CHEW ONE (17:15)
[2017-01-28] MEDS: SODIUM CHLOR 0.9% 1000 ML INJ 1,000 ML IV SCH (17:43)
[2017-01-28] MEDS: PANTOPRAZOLE SOD 40 MG DELAYED RELEASE TAB PO SCH (18:28)
[2017-01-28] MEDS: ASPIRIN 325 MG TAB PO SCH (18:59)
--- NOTE | 2017-01-28 19:10 | RADRPT ---
EXAM DATE/TIME: 01/28/2017 17:38 [place] COMPARISON: US CAROTID ARTERIES, January 04, 2017, 22:32. INDICATIONS : Syncope. MEDICAL HISTORY : COPD. Sleep apnea. Dyspnea. Post traumatic stress disorder. Anxiety. SURGICAL HISTORY : Tonsillectomy. Right elbow surgery. ENCOUNTER: Subsequent ACUITY: 1 day PAIN SCORE: 0/10 LOCATION: Bilateral neck PEAK SYSTOLIC VELOCITIES (cm/sec): ICA/CCA RATIO: Right: 1.4 Left: 0.9 ICA: Right: 116.0 Left: 104.3 CCA: Right: 82.6 Left: 119.5 ECA: Right: 153.1 Left: 169.6 VERTEBRAL: Right: 72.5 antegrade Left: 77.4 antegrade Elevated flow velocities and ICA/CCA ratios have been found to correlate with increased degrees of vessel stenosis, calculated as percentage of diameter relative to a normal segment of distal ICA/CCA FINDINGS: RIGHT CAROTID: Minimal plaque is seen at the carotid bulb region. No significant stenosis is visualized. The wavefo alex are within normal limits. LEFT CAROTID: Minimal plaque is seen at the carotid bulb region. No significant stenosis is visualized. The wavefo alex are within normal limits. VERTEBRAL ARTERIES: Antegrade flow is seen in both vertebral arteries. MISCELLANEOUS: None. CONCLUSION: Minimal carotid bulb plaque without significant stenosis. Ray Francis MD on January 28, 2017 at 19:07 Board Certified Radiologist. This report was verified electronically.
[2017-01-28] MEDS ORDERED: diphenhydrAMINE HCL 50 MG CAP PO PRN (22:15)
[2017-01-28] MEDS: clonazePAM 1 MG TAB PO SCH (22:59)
[2017-01-28] MEDS: SODIUM CHLORIDE 0.9% FLUSH 10 ML FLUSH IV FLUSH SCH (23:00)
[2017-01-28] MEDS: guaiFENesin E.R. 600 MG TAB PO SCH (23:00)
[2017-01-28] MEDS: BUDESONIDE-FORMOTEROL 160/4.5 MCG INHALER INH SCH (23:00)
[2017-01-29] MEDS: SODIUM CHLOR 0.9% 1000 ML INJ 1,000 ML IV SCH (02:50)
[2017-01-29] MEDS: clonazePAM 1 MG TAB PO SCH (08:13)
[2017-01-29] MEDS: SODIUM CHLORIDE 0.9% FLUSH 10 ML FLUSH IV FLUSH SCH (08:13)
[2017-01-29] MEDS: ASPIRIN 325 MG TAB PO SCH (08:13)
[2017-01-29] MEDS: PANTOPRAZOLE SOD 40 MG DELAYED RELEASE TAB PO SCH (08:13)
[2017-01-29] MEDS: guaiFENesin E.R. 600 MG TAB PO SCH ×2 (08:13→08:22)
[2017-01-29] MEDS: BUDESONIDE-FORMOTEROL 160/4.5 MCG INHALER INH SCH (08:21)
[2017-01-29 08:52] LABS: AUTOMATED NEUTROPHIL # 3.8 TH/MM3 (1.8-7.7); BASOPHIL % 0.7 % (0.0-2.0); EOSINOPHIL # 0.2 TH/MM3 (0-0.4); HEMATOCRIT 42.1 % (39.0-51.0); LYMPH % 25.9 % (9.0-44.0); LYMPHOCYTE # 1.6 TH/MM3 (1.0-4.8); MEAN CELL VOLUME 87.2 FL (80.0-100.0); MEAN CORPUSCULAR HEMOGLOBIN 29.7 PG (27.0-34.0); MEAN CORPUSCULAR HGB CONC 34.1 % (32.0-36.0); NEUT % 60.4 % (16.0-70.0); PLATELET COUNT 216 TH/MM3 (150-450); RED BLOOD COUNT 4.83 MIL/MM3 (4.50-5.90); RED CELL DISTRIBUTION WIDTH 13.2 % (11.6-17.2); WHITE BLOOD COUNT 6.3 TH/MM3 (4.0-11.0)
[2017-01-29 08:59] LABS: HEMO FLAGS AUTO DIFF
[2017-01-29] MEDS ORDERED: PANTOPRAZOLE SOD 40 MG DELAYED RELEASE TAB PO SCH (09:00)
[2017-01-29 09:08] LABS: ANION GAP 6 MEQ/L (5-15); AST (GOT) 13 U/L (15-37); BLOOD UREA NITROGEN 20 MG/DL (7-18); CHLORIDE 112 MEQ/L (98-107); GLOMERULAR FILTRATION RATE 74 ML/MIN (>89); POTASSIUM 4.2 MEQ/L (3.5-5.1); SODIUM (NA) 141 MEQ/L (136-145)
[2017-01-29 09:09] LABS: ALT (GPT) 37 U/L (12-78)
[2017-01-29 09:18] LABS: ALKALINE PHOSPHATASE 79 U/L (45-117); FREE T4 1.23 NG/DL (0.76-1.46); TOTAL BILIRUBIN ADULT 0.3 MG/DL (0.2-1.0)
[2017-01-29 09:32] LABS: PLATELET ESTIMATE SMEAR NORMAL (NORMAL); PLATELET MORPHOLOGY NORMAL (NORMAL); SCAN/DIFF AUTO DIFF CONFIRMED
--- NOTE | 2017-01-29 09:59 | EKG ---
Date Performed: 01/28/2017 Time Performed: 13:29:12 PTAGE: 61 years EKG: Sinus rhythm NORMAL ECG PREVIOUS TRACING : 01/05/2017 03.15 DOCTOR: Kb Hammond Interpretating Date/Time 01/29/2017 09:57:58
[2017-01-29] MEDS ORDERED: INFLUENZA VIRUS VACCINE (QUADRIVALENT) 0.5 ML SYR IM ONE (10:00)
[2017-01-29 10:05] VITALS: BP_SYST 147; BP_SYST 149; BP_SYST 159; BP_DIAS 76; BP_DIAS 89; BP_DIAS 94; PULSE 87; RESP 16; TEMP 98.6; O2SAT 95
[2017-01-29] MEDS ORDERED: ADVA250A INH (10:28)
[2017-01-29 10:31] LABS: HEMOGLOBIN A1a 1.1 %; HEMOGLOBIN A1b 1.7 %; HEMOGLOBIN Ao 85.4 %; HEMOGLOBIN LA1C 1.9 %
--- NOTE | 2017-01-29 10:35 | HHI.PR ---
Subjective Remarks Follow-up for dizziness and shortness of breath. The patient states that his dizziness has significantly improved overnight. He feels like this is because the anticoagulant is getting out of his system. He states she's been able to ambulate with PT today with no lightheadedness or dizziness. He states that his shortness of breath is back to baseline today. He feels like he needs oxygen for his COPD because that makes him feel much better, and [facility]. He feels well and wants to go home. He gets Medicare in one month and is happy [facility] and [facility] other doctors. Objective Vitals Vital Signs Date Time Temp Pulse Resp B/P (MAP) Pulse Ox O2 Delivery O2 Flow Rate FiO2 01/29/17 10:05 98.6 87 16 149/76 (100) 95 159/94 (115) 147/89 (108) 01/29/17 07:36 21 01/28/17 23:47 98.0 67 18 150/82 (104) 94 01/28/17 22:42 95 01/28/17 20:28 98.1 82 18 159/82 (107) 94 01/28/17 19:10 86 18 163/86 (111) 96 01/28/17 18:00 85 20 140/83 (102) 96 Room Air 01/28/17 17:00 90 16 157/89 (111) 97 Room Air 01/28/17 15:45 76 16 129/64 (85) 78 16 150/91 (110) 01/28/17 15:00 82 16 149/87 (107) 96 Room Air 01/28/17 13:28 18 97 Room Air 01/28/17 13:00 68 16 131/86 (101) 97 Room Air 01/28/17 12:30 38 98 01/28/17 12:10 97.7 85 22 133/75 (94) 95 I/O 01/28/17 01/28/17 01/28/17 01/29/17 01/29/17 01/29/17 07:00 15:00 23:00 07:00 15:00 23:00 Intake Total 200 ml 200 ml Balance 200 ml 200 ml Intake Oral 200 ml 200 ml Result Diagram: 01/29/17 0801/29/17 0806 Imaging Last Impressions Head CT 01/28/171310 Signed Impressions: Service Date/Time: Saturday, January 28, 2017 15:06 - CONCLUSION: Normal examination. Cj Barrett Jr., MD Chest X-Ray 01/28/171310 Signed Impressions: Service Date/Time: Saturday, January 28, 2017 13:14 - CONCLUSION: No acute disease. Sabino Pak MD FACR Lower Extremity Ultrasound 01/28/17 0000 Signed Impressions: Service Date/Time: Saturday, January 28, 2017 13:42 - CONCLUSION: Negative for deep venous thrombosis. Sabino Pak MD FACR Carotid Artery Ultrasound 01/28/17 0000 Signed Impressions: Service Date/Time: Saturday, January 28, 2017 17:38 - CONCLUSION: Minimal carotid bulb plaque without significant stenosis. Ray Francis MD CT Angiography 01/28/17 0000 Signed Impressions: Service Date/Time: Saturday, January 28, 2017 15:08 - CONCLUSION: 1. No pulmonary emboli. 2. Emphysematous changes. 3. Tiny hepatic cysts. Cj Barrett Jr., MD Objective Remarks GENERAL: Well-developed well-nourished. In no acute distress. SKIN: Warm and dry. No lesions noted. HEENT: Normocephalic. Pupils equal and round. Mucous membranes pink and moist. CARDIOVASCULAR: Regular rate and rhythm. No murmur appreciated. RESPIRATORY: No accessory muscle use. Clear to auscultation. Breath sounds equal bilaterally. No wheezing. GASTROINTESTINAL: Abdomen soft, non-tender, nondistended. Bowel sounds x4. MUSCULOSKELETAL: No obvious deformities. No clubbing or cyanosis. No edema. NEUROLOGICAL: Awake and alert. No focal neurological deficits. Moves upper and lower extremities spontaneously. Normal speech. PSYCHIATRIC: Anxious mood and affect; insight and judgment normal. A/P Problem List: (1) Anxiety ICD Code: F41.9 - Anxiety disorder, unspecified Status: Chronic (2) COPD exacerbation ICD Code: J44.1 - Chronic obstructive pulmonary disease with (acute) exacerbation Status: Resolved (3) Dizziness ICD Code: R42 - Dizziness and giddiness Status: Resolved Assessment and Plan 61-year-old male with a past medical history of anxiety, COPD, and DVTs who presented for dizziness and shortness of breath COPD: No signs of acute exacerbation. Chest x-ray clear. Chest CT showed emphysematous changes. Satting well on room air and on exertion walk test. Continue albuterol. Start Advair. Has outpatient pulmonology follow-up on Tuesday. Dizziness: Symptoms have improved. Patient attributes this to side effect from anticoagulant medication. Head CT normal. Non-orthostatic. Carotid ultrasound without significant stenosis. Echocardiogram done last month essentially unremarkable. Recent DVT: Patient had a Doppler ultrasound the leg which showed occlusive DVT. He was tried on multiple anticoagulants and reports systemic adverse effects from all them. The patient had a repeat lower extremity Doppler which showed no DVT. He had a pulmonary angiogram that showed no PE. The patient declines further anticoagulation, agreeable to continue on aspirin and follow- up with hematology at the [facility]. Atypical chest pain: Troponin negative 2. Stress test done last month was nonischemic. Pulmonary angiogram negative. Symptoms resolved. Possibly anxiety related. Anxiety: Possibly contributing to the patient's above symptoms. Continue Klonopin. Discharge Planning Discharge patient to home Condition on discharge: Improved Regular Diet as tolerated Regular activity Rx written: Claribel Follow-up with primary care physician Parveen Louis Jan 29, 2017 10:35
[2017-01-29 12:15] VITALS: PULSE 78
== END 2017-01-29 14:14 | disposition home or self-care (01) ==
LOC: NEPC 12:08 → NEDA 16:46 → NEPHCDU 19:59
PROVIDERS: ADMIT Hospitalist; ATTEND Hospitalist
DX: R07.9 Chest pain, unspecified (principal); R55 Syncope and collapse; R07.89 Other chest pain; J44.1 Chronic obstructive pulmonary disease with (acute) exacerbation; F41.9 Anxiety disorder, unspecified
CPT/HCPCS: 70450; 71010; 71275; 80053; 83036; 83735; 84100; 84439; 84443; 84484; 85025; 85610; 85730; 93005; 93880; 93971; 96360; 96361; 97166; 99285; G0378; G8987; G8988; G8989; J7030; Q0163; Q9967

== ENCOUNTER 2017-03-07 18:07 | Observation (INO) | payer OTHER, MEDICARE ==
[~2017-03-07] VITALS: Ht 188 cm; Wt 94.1 kg
[~2017-03-07 18:07] MED LIST changes: +ADVA250A INH; +ASPI-516 CHEW; -ASPI81CH CHEW; -COUM5TAB PO; -ENOX100P SQ; -LEVA750T9 PO; -LIPI20TA PO; -MEDR4PAK PO
[2017-03-07 18:10] VITALS: BP 173/101; PULSE 96; RESP 28; TEMP 97.7; O2SAT 97
[2017-03-07 18:40] VITALS: BP 144/91; PULSE 77; RESP 25; O2SAT 100
[2017-03-07] MEDS ORDERED: SODIUM CHLORIDE 0.9% FLUSH 10 ML FLUSH IVF PRN ×2 (18:45→23:15)
[2017-03-07] MEDS ORDERED: methylPREDNISolone SOD SUCC 125 MG/2 ML VIAL IV PUSH ONE (18:45)
--- NOTE | 2017-03-07 18:48 | PD ---
HPI Chief Complaint: Cardiac Complaint Time Seen by Provider: 18:25 Travel History International Travel<30 days: No Contact w/Intl Traveler<30days: No Traveled to known affect area: No History of Present Illness HPI Patient is a 61-year-old male with history of COPD, DVT, presents to emergency room complaints of chest pain or shortness of breath. Patient reports that he began to have left-sided chest pain/lung pain yesterday afternoon. Patient reports that he thought that he was having a COPD exacerbation and took his albuterol treatment as well as Advair with no relief of symptoms. Patient reports that he has been feeling short of breath and near syncopal since yesterday. Patient reports that he can't seem to catch his breath. Patient reports that he has history of DVT, reports that he had allergic reactions to Eliquis, warfarin, Lovenox, Xarrelto, except that the [place] was working to find him an anticoagulant that he could tolerate. Reports that he was recently seen in this ER and had a CT of his chest that ruled out PE as well as a doppler us of his leg which did not show dvt and "I was just discharged to home on no blood thinners." Patient is concerned for possible pulmonary emboli as he can' t seem to catch his breath. PFSH Past Medical History Asthma: No Blood Disorders: No Anxiety: Yes ([facility] made him anxious not writing RX when he needs it) Depression: No Heart Rhythm Problems: No Cancer: No Cardiovascular Problems: Yes High Cholesterol: No Chemotherapy: No Chest Pain: No Congestive Heart Failure: No COPD: Yes Diabetes: No Endocrine: No Genitourinary: No Immune Disorder: No Musculoskeletal: No (weakness) Neurologic: No Psychiatric: No Reproductive: No Respiratory: Yes Radiation Therapy: No Sleep Apnea: No Thyroid Disease: No Past Surgical History Tonsillectomy: Yes Other Surgery: Yes Social History Alcohol Use: No Tobacco Use: No Substance Use: No Allergies-Medications (Allergen,Severity, Reaction): Coded Allergies: dabigatran etexilate (Verified Allergy, Severe, Hives, 01/28/17) enoxaparin (Verified Allergy, Severe, Rash, 01/28/17) lisinopril (Verified Allergy, Severe, EDEMA, 01/28/17) rivaroxaban (Verified Allergy, Severe, Hives, 01/28/17) warfarin (Verified Allergy, Severe, Rash, 03/08/17) acebutolol (Verified Adverse Reaction, Intermediate, feeling of nervousness, feeling of skin coming off, , 01/28/17) atenolol (Verified Adverse Reaction, Intermediate, feeling of nervousness , feeling of skin coming off, , 01/28/17) betaxolol (Verified Adverse Reaction, Intermediate, feeling of nervousness , feeling of skin coming off, , 01/28/17) carvedilol (Verified Adverse Reaction, Intermediate, feeling of nervousness, feeling of skin coming off, , 01/28/17) labetalol (Verified Adverse Reaction, Intermediate, feeling of nervousness , feeling of skin coming off, , 01/28/17) metoprolol (Verified Adverse Reaction, Intermediate, feeling of nervousness, feeling of skin coming off, , 01/28/17) nebivolol (Verified Adverse Reaction, Intermediate, feeling of nervousness , feeling of skin coming off, , 01/28/17) pindolol (Verified Adverse Reaction, Intermediate, feeling of nervousness , feeling of skin coming off, , 01/28/17) propranolol (Verified Adverse Reaction, Intermediate, feeling of nervousness, feeling of skin coming off, , 01/28/17) sotalol (Verified Adverse Reaction, Intermediate, feeling of nervousness, feeling of skin coming off, , 01/28/17) timolol (Verified Adverse Reaction, Intermediate, feeling of nervousness, feeling of skin coming off, , 01/28/17) Uncoded Allergies: BLOOD PRESSURE PILLS (Allergy, Severe, ITCHING, 01/04/17) Reported Meds & Prescriptions Reported Meds & Active Scripts Active Advair Diskus Inh (Fluticasone-Salmeterol Inh) 250-50 Mcg/Blist Aer 1 Puff INH BID Rinse mouth after use. Pantoprazole (Pantoprazole Sodium) 40 Mg Tab 40 Mg PO DAILY Reported Aspirin 81 Mg Chew 81 Mg CHEW ONCE Proair Hfa 8.5 GM Inh (Albuterol Sulfate) 90 Mcg/Act Aer 1 Puff INH Q4H PRN 108 mcg/actuation Clonazepam 1 Mg Tab 1 Mg PO BID Review of Systems General / Constitutional: No: Fever Eyes: No: Visual changes HENT: No: Headaches Cardiovascular: Positive: Chest Pain or Discomfort, Dyspnea on exertion Respiratory: Positive: Shortness of Breath, Wheezing Gastrointestinal: No: Abdominal Pain Genitourinary: No: Dysuria Musculoskeletal: No: Pain Skin: No Rash Neurologic: No: Weakness Psychiatric: No: Depression Endocrine: No: Polydipsia Hematologic/Lymphatic: No: Easy Bruising Physical Exam Narrative GENERAL: moderate distress SKIN: Focused skin assessment warm/dry. HEAD: Atraumatic. Normocephalic. EYES: Pupils equal and round. No scleral icterus. No injection or drainage. ENT: No nasal bleeding or discharge. Mucous membranes pink and moist. NECK: Trachea midline. No JVD. CARDIOVASCULAR: Regular rate and rhythm. No murmur appreciated. RESPIRATORY: No accessory muscle use. Patient with decreased breath sounds at lung bases GASTROINTESTINAL: Abdomen soft, non-tender, nondistended. Hepatic and splenic margins not palpable. MUSCULOSKELETAL: No obvious deformities. No clubbing. No cyanosis. No edema. NEUROLOGICAL: Awake and alert. No obvious cranial nerve deficits. Motor grossly within normal limits. Normal speech. PSYCHIATRIC: Appropriate mood and affect; insight and judgment normal. Data Data Last Documented VS Vital Signs Date Time Temp Pulse Resp B/P (MAP) Pulse Ox O2 Delivery O2 Flow Rate FiO2 03/07/17 19:00 28 97 Nasal Cannula 2.00 03/07/17 19:00 80 144/91 (108) 03/07/17 18:10 97.7 Orders Orders Electrocardiogram (03/07/17 ) B-Type Natriuretic Peptide (03/07/17 18:37) Ckmb (Isoenzyme) Profile (03/07/17 18:37) Complete Blood Count With Diff (03/07/17 18:37) Comprehensive Metabolic Panel (03/07/17 18:37) D-Dimer (03/07/17 18:37) Magnesium (Mg) (03/07/17 18:37) Prothrombin Time / Inr (Pt) (03/07/17 18:37) Act Partial Throm Time (Ptt) (03/07/17 18:37) Troponin I (03/07/17 18:37) Lipase (03/07/17 18:37) Chest, Single Ap (03/07/17 18:37) Ecg Monitoring (03/07/17 18:37) Iv Access Insert/Monitor (03/07/17 18:37) Oximetry (03/07/17 18:37) Sodium Chloride 0.9% Flush (Ns Flush) (03/07/17 18:45) Ct Pulmonary Angiogram (03/07/17 18:37) Methylprednisolone So Succ Inj (Solumedr (03/07/17 18:45) Albuterol-Ipratropium Neb (Duoneb Neb) (03/07/17 18:45) Us Leg Venous Doppler Bilat (03/07/17 ) Iohexol 350 Inj (Omnipaque 350 Inj) (03/07/17 22:12) Acetaminophen (Tylenol) (03/07/17 22:30) Albuterol-Ipratropium Neb (Duoneb Neb) (03/07/17 22:30) Ketorolac Inj (Toradol Inj) (03/07/17 22:30) Place In Observation (03/07/17 ) Vital Signs (Adult) Q4H (03/07/17 22:47) Activity Oob With Assistance (03/07/17 22:47) [employer]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 .CONTINUOUS (03/07/17 22:47) Intake + Output NEAL.QSHIFT (03/07/17 22:47) Diet Heart Healthy (03/08/17 Breakfast) Sodium Chloride 0.9% Flush (Ns Flush) (03/07/17 23:00) Sodium Chloride 0.9% Flush (Ns Flush) (03/08/17 09:00) Basic Metabolic Panel (Bmp) (03/08/17 06:00) Complete Blood Count With Diff (03/08/17 06:00) Creatine Kinase (Cpk) (03/08/17 01:00) Creatine Kinase (Cpk) (03/08/17 07:00) Troponin I (03/08/17 01:00) Troponin I (03/08/17 07:00) Electrocardiogram (03/08/17 01:00) Electrocardiogram (03/08/17 07:00) Naloxone Inj (Narcan Inj) (03/07/17 23:00) Methylprednisolone So Succ Inj (Solumedr (03/08/17 09:00) Pantoprazole (Protonix) (03/08/17 09:00) Albuterol-Ipratropium Neb (Duoneb Neb) (03/08/17 04:00) Albuterol-Ipratropium Neb (Duoneb Neb) (03/07/17 23:00) Admit Order (Ed Use Only) (03/07/17 ) ^ Saline Lock (03/07/17 23:05) Resp Oxygen Alejandro C Titrat 1-4 L (03/07/17 ) Notify Dr: Other (03/07/17 23:05) Sodium Chloride 0.9% Flush (Ns Flush) (03/08/17 09:00) Sodium Chloride 0.9% Flush (Ns Flush) (03/07/17 23:15) Labs Laboratory Tests Test 03/07/17 18:50 White Blood Count 7.5 TH/MM3 Red Blood Count 5.12 MIL/MM3 Hemoglobin 14.8 GM/DL Hematocrit 44.1 % Mean Corpuscular Volume 86.1 FL Mean Corpuscular Hemoglobin 28.9 PG Mean Corpuscular Hemoglobin Concent 33.6 % Red Cell Distribution Width 13.4 % Platelet Count 257 TH/MM3 Mean Platelet Volume 7.7 FL Neutrophils (%) (Auto) 57.4 % Lymphocytes (%) (Auto) 31.1 % Monocytes (%) (Auto) 8.1 % Eosinophils (%) (Auto) 2.9 % Basophils (%) (Auto) 0.5 % Neutrophils # (Auto) 4.3 TH/MM3 Lymphocytes # (Auto) 2.3 TH/MM3 Monocytes # (Auto) 0.6 TH/MM3 Eosinophils # (Auto) 0.2 TH/MM3 Basophils # (Auto) 0.0 TH/MM3 CBC Comment DIFF FINAL Differential Comment Prothrombin Time 10.0 SEC Prothromb Time International Ratio 0.9 RATIO Activated Partial Thromboplast Time 26.4 SEC D-Dimer Quantitative (PE/DVT) 0.66 MG/L FEU Blood Urea Nitrogen 20 MG/DL Creatinine 1.09 MG/DL Random Glucose 110 MG/DL Total Protein 7.0 GM/DL Albumin 3.7 GM/DL Calcium Level 8.7 MG/DL Magnesium Level 2.0 MG/DL Alkaline Phosphatase 94 U/L Aspartate Amino Transf (AST/SGOT) 21 U/L Alanine Aminotransferase (ALT/SGPT) 52 U/L Total Bilirubin 0.2 MG/DL Sodium Level 139 MEQ/L Potassium Level 4.1 MEQ/L Chloride Level 105 MEQ/L Carbon Dioxide Level 24.8 MEQ/L Anion Gap 9 MEQ/L Estimat Glomerular Filtration Rate 69 ML/MIN Total Creatine Kinase 87 U/L Troponin I LESS THAN 0.02 NG/ML B-Type Natriuretic Peptide 8 PG/ML Lipase 161 U/L MDM Medical Decision Making Medical Screen Exam Complete: Yes Emergency Medical Condition: Yes Medical Record Reviewed: Yes Interpretation(s) Vital Signs Date Time Temp Pulse Resp B/P (MAP) Pulse Ox O2 Delivery O2 Flow Rate FiO2 03/07/17 18:34 25 Room Air 03/07/17 18:10 97.7 96 28 173/101 (125) 97 Differential Diagnosis Differential includes COPD exacerbation, DVT, PE, ACS, electrolyte abnormality Narrative Course Patient is a 61-year-old male with history of COPD, DVT, presents to emergency room with complaints of shortness of breath. Patient reports history of DVT, currently not on anticoagulations as he is allergic to all blood thinners. Patient reports that he has been feeling short of breath and anxious since yesterday afternoon. Patient reports that he can't seem to catch his breath, is concerned about possible PE. Patient was placed on a surveillance monitor upon arrival to the emergency room. IV line was established. An EKG was obtained. Lab work ordered. CT angiogram of the lungs ordered to rule out PE. IV steroids as well as neb treatment ordered as patient does appear to have decreased breath sounds on evaluation. Patient was signed out to oncoming provider at change of shift Sandra Kwan DO Mar 07, 2017 18:48
[2017-03-07 18:49] VITALS: O2SAT 98
[2017-03-07] MEDS: RESP: ALBUTEROL 2.5 MG/IPRATROPIUM 0.5 MG NEB (SCH) INH (18:49)
[2017-03-07 19:00] VITALS: BP 144/91; PULSE 80; RESP 18; O2SAT 96
[2017-03-07 19:30] LABS: AUTOMATED NEUTROPHIL # 4.3 TH/MM3 (1.8-7.7); BASOPHIL % 0.5 % (0.0-2.0); EOSINOPHIL # 0.2 TH/MM3 (0-0.4); EOSINOPHIL % 2.9 % (0.0-4.0); HEMATOCRIT 44.1 % (39.0-51.0); HEMO FLAGS DIFF FINAL; LYMPH % 31.1 % (9.0-44.0); LYMPHOCYTE # 2.3 TH/MM3 (1.0-4.8); MEAN CELL VOLUME 86.1 FL (80.0-100.0); MEAN CORPUSCULAR HEMOGLOBIN 28.9 PG (27.0-34.0); MEAN CORPUSCULAR HGB CONC 33.6 % (32.0-36.0); MONO % 8.1 % (0.0-8.0); NEUT % 57.4 % (16.0-70.0); PLATELET COUNT 257 TH/MM3 (150-450); RED BLOOD COUNT 5.12 MIL/MM3 (4.50-5.90); RED CELL DISTRIBUTION WIDTH 13.4 % (11.6-17.2); WHITE BLOOD COUNT 7.5 TH/MM3 (4.0-11.0)
--- NOTE | 2017-03-07 19:32 | RADRPT ---
EXAM DATE/TIME: 03/07/2017 18:52 [facility] COMPARISON: CHEST SINGLE AP, January 28, 2017, 13:14. INDICATIONS : Short of breath. MEDICAL HISTORY : COPD. Sleep apnea. Dyspnea. Post traumatic stress disorder. Anxiety. Pulmonary embolism. SURGICAL HISTORY : Tonsillectomy. Right elbow surgery ENCOUNTER: Initial ACUITY: 2 days PAIN SCORE: 0/10 LOCATION: Bilateral chest FINDINGS: The cardiac silhouette is normal in transverse diameter. The lungs are free of acute parenchymal opac ity. No effusions are identified. CONCLUSION: 1. No acute cardiopulmonary disease. Jonn Magana MD on March 07, 2017 at 19:30 Board Certified Radiologist. This report was verified electronically.
[2017-03-07 19:48] LABS: ANION GAP 9 MEQ/L (5-15); AST (GOT) 21 U/L (15-37); BICARBONATE 24.8 MEQ/L (21.0-32.0); BLOOD UREA NITROGEN 20 MG/DL (7-18); CHLORIDE 105 MEQ/L (98-107); GLOMERULAR FILTRATION RATE 69 ML/MIN (>89); POTASSIUM 4.1 MEQ/L (3.5-5.1); SODIUM (NA) 139 MEQ/L (136-145)
[2017-03-07 19:49] LABS: ALT (GPT) 52 U/L (12-78)
[2017-03-07 19:53] LABS: ALKALINE PHOSPHATASE 94 U/L (45-117); TOTAL BILIRUBIN ADULT 0.2 MG/DL (0.2-1.0)
[2017-03-07 19:54] LABS: CREATINE KINASE 87 U/L (39-308)
--- NOTE | 2017-03-07 19:55 | PD ---
Physical Exam Date Seen by Provider: Mar 07, 2017 Time Seen by Provider: 19:50 Narrative Accepted in transfer of care from Dr. Kwan GENERAL: Well-developed well-nourished anxious-appearing male with tachypnea SKIN: Warm and dry. HEAD: Normocephalic. EYES: No scleral icterus. No injection or drainage. NECK: Supple, trachea midline. No JVD or lymphadenopathy. CARDIOVASCULAR: Regular rate and rhythm without murmurs, gallops, or rubs. RESPIRATORY: Breath sounds equal bilaterally. No accessory muscle use. GASTROINTESTINAL: Abdomen soft, non-tender, nondistended. MUSCULOSKELETAL: No cyanosis, or edema. Data Data Last Documented VS Vital Signs Date Time Temp Pulse Resp B/P (MAP) Pulse Ox O2 Delivery O2 Flow Rate FiO2 03/07/17 19:00 28 97 Nasal Cannula 2.00 03/07/17 19:00 80 144/91 (108) 03/07/17 18:10 97.7 Orders Orders Electrocardiogram (03/07/17 ) B-Type Natriuretic Peptide (03/07/17 18:37) Ckmb (Isoenzyme) Profile (03/07/17 18:37) Complete Blood Count With Diff (03/07/17 18:37) Comprehensive Metabolic Panel (03/07/17 18:37) D-Dimer (03/07/17 18:37) Magnesium (Mg) (03/07/17 18:37) Prothrombin Time / Inr (Pt) (03/07/17 18:37) Act Partial Throm Time (Ptt) (03/07/17 18:37) Troponin I (03/07/17 18:37) Lipase (03/07/17 18:37) Chest, Single Ap (03/07/17 18:37) Ecg Monitoring (03/07/17 18:37) Iv Access Insert/Monitor (03/07/17 18:37) Oximetry (03/07/17 18:37) Sodium Chloride 0.9% Flush (Ns Flush) (03/07/17 18:45) Ct Pulmonary Angiogram (03/07/17 18:37) Methylprednisolone So Succ Inj (Solumedr (03/07/17 18:45) Albuterol-Ipratropium Neb (Duoneb Neb) (03/07/17 18:45) Us Leg Venous Doppler Bilat (03/07/17 ) Iohexol 350 Inj (Omnipaque 350 Inj) (03/07/17 22:12) Acetaminophen (Tylenol) (03/07/17 22:30) Albuterol-Ipratropium Neb (Duoneb Neb) (03/07/17 22:30) Ketorolac Inj (Toradol Inj) (03/07/17 22:30) Place In Observation (03/07/17 ) Vital Signs (Adult) Q4H (03/07/17 22:47) Activity Oob With Assistance (03/07/17 22:47) 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 .CONTINUOUS (03/07/17 22:47) Intake + Output NEAL.QSHIFT (03/07/17 22:47) Diet Heart Healthy (03/08/17 Breakfast) Sodium Chloride 0.9% Flush (Ns Flush) (03/07/17 23:00) Sodium Chloride 0.9% Flush (Ns Flush) (03/08/17 09:00) Basic Metabolic Panel (Bmp) (03/08/17 06:00) Complete Blood Count With Diff (03/08/17 06:00) Creatine Kinase (Cpk) (03/08/17 01:00) Creatine Kinase (Cpk) (03/08/17 07:00) Troponin I (03/08/17 01:00) Troponin I (03/08/17 07:00) Electrocardiogram (03/08/17 01:00) Electrocardiogram (03/08/17 07:00) Naloxone Inj (Narcan Inj) (03/07/17 23:00) Methylprednisolone So Succ Inj (Solumedr (03/08/17 09:00) Pantoprazole (Protonix) (03/08/17 09:00) Albuterol-Ipratropium Neb (Duoneb Neb) (03/08/17 04:00) Albuterol-Ipratropium Neb (Duoneb Neb) (03/07/17 23:00) Admit Order (Ed Use Only) (03/07/17 ) ^ Saline Lock (03/07/17 23:05) Resp Oxygen Alejandro C Titrat 1-4 L (03/07/17 ) Notify Dr: Other (03/07/17 23:05) Sodium Chloride 0.9% Flush (Ns Flush) (03/08/17 09:00) Sodium Chloride 0.9% Flush (Ns Flush) (03/07/17 23:15) Labs Laboratory Tests Test 03/07/17 18:50 White Blood Count 7.5 TH/MM3 Red Blood Count 5.12 MIL/MM3 Hemoglobin 14.8 GM/DL Hematocrit 44.1 % Mean Corpuscular Volume 86.1 FL Mean Corpuscular Hemoglobin 28.9 PG Mean Corpuscular Hemoglobin Concent 33.6 % Red Cell Distribution Width 13.4 % Platelet Count 257 TH/MM3 Mean Platelet Volume 7.7 FL Neutrophils (%) (Auto) 57.4 % Lymphocytes (%) (Auto) 31.1 % Monocytes (%) (Auto) 8.1 % Eosinophils (%) (Auto) 2.9 % Basophils (%) (Auto) 0.5 % Neutrophils # (Auto) 4.3 TH/MM3 Lymphocytes # (Auto) 2.3 TH/MM3 Monocytes # (Auto) 0.6 TH/MM3 Eosinophils # (Auto) 0.2 TH/MM3 Basophils # (Auto) 0.0 TH/MM3 CBC Comment DIFF FINAL Differential Comment Prothrombin Time 10.0 SEC Prothromb Time International Ratio 0.9 RATIO Activated Partial Thromboplast Time 26.4 SEC D-Dimer Quantitative (PE/DVT) 0.66 MG/L FEU Blood Urea Nitrogen 20 MG/DL Creatinine 1.09 MG/DL Random Glucose 110 MG/DL Total Protein 7.0 GM/DL Albumin 3.7 GM/DL Calcium Level 8.7 MG/DL Magnesium Level 2.0 MG/DL Alkaline Phosphatase 94 U/L Aspartate Amino Transf (AST/SGOT) 21 U/L Alanine Aminotransferase (ALT/SGPT) 52 U/L Total Bilirubin 0.2 MG/DL Sodium Level 139 MEQ/L Potassium Level 4.1 MEQ/L Chloride Level 105 MEQ/L Carbon Dioxide Level 24.8 MEQ/L Anion Gap 9 MEQ/L Estimat Glomerular Filtration Rate 69 ML/MIN Total Creatine Kinase 87 U/L Troponin I LESS THAN 0.02 NG/ML B-Type Natriuretic Peptide 8 PG/ML Lipase 161 U/L [facility] Medical Record Reviewed: Yes Supervised Visit with DONIS: No Interpretation(s) Chest x-ray per reading radiologist no acute process Bilateral lower extremity ultrasound negative for DVT bilaterally per reading radiologist EKG normal sinus rhythm rate [address] elevation injury pattern or ectopy noted CT PULMONARY: CONCLUSION: 1. No evidence of pulmonary embolism. 2. Bibasilar atelectasis with emphysematous changes bilaterally Jonn Magana MD on March 07, 2017 at 22:19 Board Certified Radiologist. This report was verified electronically. CBC & BMP Diagram 03/07/17 18:50 Total Protein 7.0, Albumin 3.7, Calcium Level 8.7, Magnesium Level 2.0, Alkaline Phosphatase 94, Aspartate Amino Transf (AST/SGOT) 21, Alanine Aminotransferase (ALT/SGPT) 52, Total Bilirubin 0.2 Last Impressions Chest X-Ray [id number]/07/[id number] Signed Impressions: Service Date/Time: Tuesday, March 07, 2017 18:52 - CONCLUSION: 1. No acute cardiopulmonary disease. Jonn Magana MD CT Angiography [id number]/07/[id number] Signed Impressions: Service Date/Time: Tuesday, March 07, 2017 22:06 - CONCLUSION: 1. No evidence of pulmonary embolism. 2. Bibasilar atelectasis with emphysematous changes bilaterally Jonn Magana MD Lower Extremity Ultrasound 03/07/17 0000 Signed Impressions: Service Date/Time: Tuesday, March 07, 2017 19:28 - CONCLUSION: 1. No evidence of deep venous thrombosis. Jonn Magana MD Differential Diagnosis Accepted in transfer of care from Dr. cole; please refer to her dictation Narrative Course Accepted in transfer of care from Dr. Kwan for follow-up of pending diagnostics with CTA to evaluate for pulmonary embolism and ultrasound of the lower extremities to evaluate for recurrent DVT Patient has received Solu-Medrol and 3 DuoNeb updrafts with some improvement of symptoms Patient in route to CT pulmonary angiogram; chest x-ray no acute process and ultrasounds of bilateral lower extremity negative for DVT Patient aware of imaging results and negative CT for PE and negative ultrasound for DVT however in view of COPD and ongoing atypical chest pain patient will be admitted observation to [facility] service Patient is comfortable and agreeable to observation admission; patient is stable Physician Communication Physician Communication discussed with Dr Aranda for OBS admission Diagnosis Primary Impression: Chest pain Additional Impression: COPD exacerbation Admitting Information Admitting Physician Requests: Observation Marlen Moyer MD Mar 07, 2017 19:55
--- NOTE | 2017-03-07 20:09 | RADRPT ---
EXAM DATE/TIME: 03/07/2017 19:28 [facility] COMPARISON: No previous studies available for comparison. INDICATIONS : Bilateral leg swelling. MEDICAL HISTORY : Chronic obstructive pulmonary disease. Myocardial infarction. Hearing aids. Anxiety. SURGICAL HISTORY : Tonsillectomy. Right elbow fracture. ENCOUNTER: Subsequent ACUITY: 1 day PAIN SCORE: 6/10 LOCATION: Bilateral legs. TECHNIQUE: Venous ultrasound of the left and right leg was performed from the inguinal ligament to the proximal calf. Real-time, color Doppler and spectral tracing, compression and augmentation techniques were us ed. FINDINGS: RIGHT LEG: There is normal compressibility of the deep venous system from the inguinal region to the proximal ca lf. No echogenic clot is seen in the lumen of the common femoral, femoral, popliteal, and posterior tibial veins. There is a normal response of the venous system to proximal and distal augmentation an d respiration. LEFT LEG: There is normal compressibility of the deep venous system from the inguinal region to the proximal ca lf. No echogenic clot is seen in the lumen of the common femoral, femoral, popliteal, and posterior tibial veins. There is a normal response of the venous system to proximal and distal augmentation an d respiration. CONCLUSION: 1. No evidence of deep venous thrombosis. Jonn Magana MD on March 07, 2017 at 20:07 Board Certified Radiologist. This report was verified electronically.
[2017-03-07 20:26] LABS: APTT (PATIENT) 26.4 SEC (24.3-30.1); INTERNATIONAL NORMALIZED RATIO 0.9 RATIO
[2017-03-07] MEDS ORDERED: IOHEXOL 350 MG/ML 10 ML VIAL (for RAD DIAG) IVCONTRAST ONE (22:12)
--- NOTE | 2017-03-07 22:23 | RADRPT ---
EXAM DATE/TIME: 03/07/2017 22:06 [facility] COMPARISON: CT PULMONARY ANGIOGRAM, January 28, 2017, 15:08. INDICATIONS : Shortness of breath with chest pain. IV CONTRAST: 65 cc Omnipaque 350 (iohexol) IV RADIATION DOSE: 23.27 CTDIvol (mGy) MEDICAL HISTORY : Cardiovascular disease. Chronic obstructive pulmonary disease. SURGICAL HISTORY : None. ENCOUNTER: Initial ACUITY: 1 day PAIN SCALE: 7/10 LOCATION: Left chest TECHNIQUE: Volumetric scanning of the chest was performed using a pulmonary embolism protocol MIP images were re constructed. Using automated exposure control and adjustment of the mA and/or kV according to patien t size, radiation dose was kept as low as reasonably achievable to obtain optimal diagnostic quality images. DICOM format image data is available electronically for review and comparison. Follow-up recommendations for detected pulmonary nodules are based at a minimum on nodule size and pa tient risk factors according to Fleischner Society Guidelines. FINDINGS: Examination of the pulmonary vasculature demonstrates good filling of the main, lobar and segmental b ranches. There are no filling defects to suggest pulmonary embolism. Multiplanar reconstructions are also unremarkable. There are centrilobular emphysematous changes throughout both lungs. There is subsegmental atelectas is in the both bases. No pleural effusions are identified. Examination of the mediastinum demonstrates no abnormally enlarged lymph nodes by CT criteria. No axi llary or hilar abnormalities are identified. Coronary artery calcifications are present. The visualiz ed upper abdomen demonstrates no abnormality. There is direct origin of the left vertebral artery fro m the arch which can be seen as a normal variation. CONCLUSION: 1. No evidence of pulmonary embolism. 2. Bibasilar atelectasis with emphysematous changes bilaterally Jonn Magana MD on March 07, 2017 at 22:19 Board Certified Radiologist. This report was verified electronically.
[2017-03-07] MEDS ORDERED: RESP: ALBUTEROL 2.5 MG/IPRATROPIUM 0.5 MG NEB (SCH) NEB ONE (22:30)
[2017-03-07] MEDS ORDERED: ACETAMINOPHEN 325 MG TAB PO ONE (22:30)
[2017-03-07] MEDS ORDERED: KETOROLAC TROMETHAMINE 30 MG/ML (IVP) VIAL IV PUSH ONE (22:30)
[2017-03-07] MEDS ORDERED: SODIUM CHLORIDE 0.9% FLUSH 10 ML FLUSH IV FLUSH PRN (23:00)
[2017-03-07] MEDS ORDERED: RESP: ALBUTEROL 2.5 MG/IPRATROPIUM 0.5 MG NEB (PRN) NEB (23:00)
[2017-03-07] MEDS ORDERED: NALOXONE HCL 0.4 MG/ML AMP IV PUSH PRN (23:00)
[2017-03-07 23:30] VITALS: O2SAT 96
[2017-03-08] VITALS (17 sets, daily range): BP systolic 110–160; BP diastolic 57–92; PULSE 81–122; RESP 17–28; TEMP 97.5–98.6; O2SAT 92–98
[2017-03-08] MEDS: RESP: ALBUTEROL 2.5 MG/IPRATROPIUM 0.5 MG NEB (SCH) NEB ×4 (03:10→20:54)
[2017-03-08 04:02] LABS: CREATINE KINASE 74 U/L (39-308)
--- NOTE | 2017-03-08 04:47 | HHI.HP ---
[facility] Admission Diagnosis copd exacerbation Diagnoses: Chief Complaint: shortness of breath Travel History International Travel<30 Days: No Contact w/Intl Traveler <30 Da: No Traveled to Known Affected Are: No History of Present Illness Written by MARIA GUADALUPE Choi acting as scribe for [Manoj] on 03/08/17 at 04: 43. 61 y/o males with a history of COPD, anxiety, and depression presented to the ED with complaints of shortness of breath. He states he has been having trouble breathing for 1 day, with sharp pains in left lower rib cage. He states his breathing continued to get worse despite his use of his rescue albuterol inhaler at home. He states he does have a productive cough with yellow sputum, no change for over a year, no fevers. Denies any chest pain, dizziness, headaches, nausea or vomiting. Patient is a very argumentative person who is requesting to see a ent surgeon and corrections officer because [facility]. He states he is allergic to blood presser medications because it lowers his BP to low, and he can not take anticoagulation because they give him convulsions, and passing out Patient was educated on COPD, and the allergies of multiple medications. He is instructed to follow up with the MA for hematology as he has no current DVT or PE. He just wants to argue and states that he knows what he needs and he has done all his research. Review of Systems Except as stated in HPI: all other systems reviewed are Neg Past Family Social History Past Medical History Gerd Anxiety Depression COPD Psychiatric disorder Sleep apnea PTSD Past Surgical History Tonsillectomy. Right elbow repair Reported Medications Reported Meds & Active Scripts Active Advair Diskus Inh (Fluticasone-Salmeterol Inh) 250-50 Mcg/Blist Aer 1 Puff INH BID Rinse mouth after use. Pantoprazole (Pantoprazole Sodium) 40 Mg Tab 40 Mg PO DAILY Reported Aspirin 81 Mg Chew 81 Mg CHEW ONCE Proair Hfa 8.5 GM Inh (Albuterol Sulfate) 90 Mcg/Act Aer 1 Puff INH Q4H PRN 108 mcg/actuation Clonazepam 1 Mg Tab 1 Mg PO BID Allergies: Coded Allergies: dabigatran etexilate (Verified Allergy, Severe, Hives, 01/28/17) enoxaparin (Verified Allergy, Severe, Rash, 01/28/17) lisinopril (Verified Allergy, Severe, EDEMA, 01/28/17) rivaroxaban (Verified Allergy, Severe, Hives, 01/28/17) warfarin (Verified Allergy, Severe, Rash, 03/08/17) acebutolol (Verified Adverse Reaction, Intermediate, feeling of nervousness, feeling of skin coming off, , 01/28/17) atenolol (Verified Adverse Reaction, Intermediate, feeling of nervousness , feeling of skin coming off, , 01/28/17) betaxolol (Verified Adverse Reaction, Intermediate, feeling of nervousness , feeling of skin coming off, , 01/28/17) carvedilol (Verified Adverse Reaction, Intermediate, feeling of nervousness, feeling of skin coming off, , 01/28/17) labetalol (Verified Adverse Reaction, Intermediate, feeling of nervousness , feeling of skin coming off, , 01/28/17) metoprolol (Verified Adverse Reaction, Intermediate, feeling of nervousness, feeling of skin coming off, , 01/28/17) nebivolol (Verified Adverse Reaction, Intermediate, feeling of nervousness , feeling of skin coming off, , 01/28/17) pindolol (Verified Adverse Reaction, Intermediate, feeling of nervousness , feeling of skin coming off, , 01/28/17) propranolol (Verified Adverse Reaction, Intermediate, feeling of nervousness, feeling of skin coming off, , 01/28/17) sotalol (Verified Adverse Reaction, Intermediate, feeling of nervousness, feeling of skin coming off, , 01/28/17) timolol (Verified Adverse Reaction, Intermediate, feeling of nervousness, feeling of skin coming off, , 01/28/17) Uncoded Allergies: BLOOD PRESSURE PILLS (Allergy, Severe, ITCHING, 01/04/17) Active Ordered Medications Current Medications Medications (Trade) Dose Ordered Sig/Monica Route Start Time Stop Time Status Last Admin (Narcan Inj) 0.4 mg UNSCH PRN IV PUSH 03/07/17 23:00 (SoluMEDROL INJ) 40 mg Q12HR IV PUSH 03/08/17 09:00 (Protonix) 40 mg DAILY PO 03/08/17 09:00 (Duoneb Neb) 1 ampule Q6HR NEB NEB 03/08/17 04:00 (Duoneb Neb) 1 ampule Q2HR NEB PRN NEB 03/07/17 23:00 (NS Flush) 2 ml BID IV FLUSH 03/08/17 09:00 (NS Flush) 2 ml UNSCH PRN IVF 03/07/17 23:15 Family History Patient denies any family history Social History Tobacco use: quit 2 years ago Alcohol use; Denies Illicit drug use: Denies Physical Exam Vital Signs Vital Signs Date Time Temp Pulse Resp B/P (MAP) Pulse Ox O2 Delivery O2 Flow Rate FiO2 03/08/17 03:31 97.8 82 20 134/76 (95) 92 03/08/17 02:45 81 03/08/17 00:54 97.8 87 18 139/66 (90) 95 03/08/17 00:00 96 20 160/87 (111) 98 03/07/17 23:30 96 Nasal Cannula 2.00 03/07/17 19:00 28 97 Nasal Cannula 2.00 03/07/17 19:00 80 18 144/91 (108) 96 Nasal Cannula 2.00 03/07/17 18:49 98 Nasal Cannula 2.00 03/07/17 18:40 77 25 144/91 (108) 100 Nasal Cannula 03/07/17 18:34 25 Room Air 03/07/17 18:10 97.7 96 28 173/101 (125) 97 Physical Exam GENERAL: This is a well-nourished, argumentative male in [facility]. SKIN: No rashes, ecchymoses or lesions. Cool and dry. HEAD: Atraumatic. Normocephalic. EYES: Pupils equal round and reactive. . ENT: Nose without bleeding, purulent drainage or septal hematoma. Airway patent. NECK: Trachea midline. No JVD or lymphadenopathy. CARDIOVASCULAR: Regular rate and rhythm without murmurs, gallops, or rubs. RESPIRATORY: Clear to auscultation. Breath sounds equal bilaterally. No wheezes , rales, or rhonchi. GASTROINTESTINAL: Abdomen soft, non-tender, nondistended. MUSCULOSKELETAL: Extremities without clubbing, cyanosis, or edema. No joint tenderness, effusion, or edema noted. No calf tenderness. NEUROLOGICAL: Awake and alert. C Motor and sensory grossly within normal limits Normal speech. Laboratory Laboratory Tests Test 03/07/17 18:50 03/08/17 02:37 White Blood Count 7.5 Red Blood Count 5.12 Hemoglobin 14.8 Hematocrit 44.1 Mean Corpuscular Volume 86.1 Mean Corpuscular Hemoglobin 28.9 Mean Corpuscular Hemoglobin Concent 33.6 Red Cell Distribution Width 13.4 Platelet Count 257 Mean Platelet Volume 7.7 Neutrophils (%) (Auto) 57.4 Lymphocytes (%) (Auto) 31.1 Monocytes (%) (Auto) 8.1 Eosinophils (%) (Auto) 2.9 Basophils (%) (Auto) 0.5 Neutrophils # (Auto) 4.3 Lymphocytes # (Auto) 2.3 Monocytes # (Auto) 0.6 Eosinophils # (Auto) 0.2 Basophils # (Auto) 0.0 CBC Comment DIFF FINAL Differential Comment Prothrombin Time 10.0 Prothromb Time International Ratio 0.9 Activated Partial Thromboplast Time 26.4 D-Dimer Quantitative (PE/DVT) 0.66 Blood Urea Nitrogen 20 Creatinine 1.09 Random Glucose 110 Total Protein 7.0 Albumin 3.7 Calcium Level 8.7 Magnesium Level 2.0 Alkaline Phosphatase 94 Aspartate Amino Transf (AST/SGOT) 21 Alanine Aminotransferase (ALT/SGPT) 52 Total Bilirubin 0.2 Sodium Level 139 Potassium Level 4.1 Chloride Level 105 Carbon Dioxide Level 24.8 Anion Gap 9 Estimat Glomerular Filtration Rate 69 Total Creatine Kinase 87 74 Troponin I LESS THAN 0.02 LESS THAN 0.02 B-Type Natriuretic Peptide 8 Lipase 161 Result Diagram: 03/07/17184903/07/171849 Imaging Last Impressions Chest X-Ray 03/07/171836 Signed Impressions: Service Date/Time: Tuesday, March 07, 2017 18:52 - CONCLUSION: 1. No acute cardiopulmonary disease. Jonn Magana MD CT Angiography 03/07/171836 Signed Impressions: Service Date/Time: Tuesday, March 07, 2017 22:06 - CONCLUSION: 1. No evidence of pulmonary embolism. 2. Bibasilar atelectasis with emphysematous changes bilaterally Jonn Magana MD Lower Extremity Ultrasound 03/07/17 0000 Signed Impressions: Service Date/Time: Tuesday, March 07, 2017 19:28 - CONCLUSION: 1. No evidence of deep venous thrombosis. MD Irena Vora VTE Risk Assessment Caprini VTE Risk Assessment: Mod/High Risk (score >= 2) Caprini Risk Assessment Model Point Value = 1 Point Value = 2 Point Value = 3 Point Value = 5 Age 41-60 Minor surgery BMI > 25 kg/m2 Swollen legs Varicose veins or History of unexplained or recurrent spontaneous Oral contraceptives or hormone replacement Sepsis (< 1 month) Serious lung disease, including pneumonia (< 1 month) Abnormal pulmonary function Acute myocardial infarction Congestive heart failure (< 1 month) History of inflammatory bowel disease Medical patient at bed rest Age 61-74 Arthroscopic surgery Major open surgery (> 45 min) Laparoscopic surgery (> 45 min) Malignancy Confined to bed (> 72 hours) Immobilizing plaster cast Central venous access Age >= 75 History of VTE Family history of VTE Factor V Leiden Prothrombin [id number] Lupus anticoagulant Anticardiolipin antibodies Elevated serum homocysteine Heparin-induced thrombocytopenia Other congenital or acquired thrombophilia Stroke (< 1 month) Elective arthroplasty Hip, pelvis, or leg fracture Acute spinal cord injury (< 1 month) Prophylaxis Regimen Total Risk Factor Score Risk Level Prophylaxis Regimen 0-1 Low Early ambulation 2 Moderate Order ONE of the following: *Sequential Compression Device (SCD) *Heparin 5000 units SQ BID 3-4 Higher Order ONE of the following medications: *Heparin 5000 units SQ TID *Enoxaparin/Lovenox 40 mg SQ daily (WT < 150 kg, CrCl > 30 mL/min) *Enoxaparin/Lovenox 30 mg SQ daily (WT < 150 kg, CrCl > 10-29 mL/min) *Enoxaparin/Lovenox 30 mg SQ BID (WT < 150 kg, CrCl > 30 mL/min) AND/OR *Sequential Compression Device (SCD) 5 or more Highest Order ONE of the following medications: *Heparin 5000 units SQ TID (Preferred with Epidurals) *Enoxaparin/Lovenox 40 mg SQ daily (WT < 150 kg, CrCl > 30 mL/min) *Enoxaparin/Lovenox 30 mg SQ daily (WT < 150 kg, CrCl > 10-29 mL/min) *Enoxaparin/Lovenox 30 mg SQ BID (WT < 150 kg, CrCl > 30 mL/min) AND *Sequential Compression Device (SCD) Assessment and Plan Problem List: (1) COPD exacerbation ICD Code: J44.1 - Chronic obstructive pulmonary disease with (acute) exacerbation Status: Acute Assessment and Plan 61 y/o males with a history of COPD, anxiety, and depression presented to the ED with complaints of shortness of breath. COPD exacerbation on chronic COPD disease Chest x-ray reviewed shows no acute Cardiopulmonary disease CTA reviewed and shows no PE -DuoNeb's scheduled and when necessary -IV Solu-Medrol -Incentive spirometer -Oxygen as needed Chest pain, atypical suspect related to cough, anxiety and COPD exacerbation r/ o ACS Recent stress test in December was normal Troponin first set 0.02, second set 0.02, EKG reviewed showed sinus rhythm -Third set pending and EKG pending -Monitor telemetry DVT prophylaxis: SCDs This note was transcribed by [email or web address] [Marni Fofana]. I, Dr. Chencho Aranda personally performed the history, physical exam, and medical decision making; and confirmed the accuracy of the information in the transcribed note. Authenticated by Dr. Chencho Aranda on 03/08/17 at 04:43. hematology eval as outpatient if needed- pt is explained his history of allergies to blood thinners may not be allergies, but rather reactions to meds. He insisted on having allergies and describing inconsistent symptoms such as convlusions, flushing, dizziness with various blood thinners. Detailed hx and evaluation and if at all needed further workup is warranted only as an outpatient basis. he is also explained in detail of natural progression of copd disease process which he is not really wanting to hear or able to accept. he kept blaming [facility] for not prescribing him latest inhalors, medicines, tests for his progressive copd Discussed Condition With Patient and RN Marni Fofana Mar 08, 2017 04:47 Chencho Aranda MD Mar 08, 2017 15:34
[2017-03-08 07:56] LABS: AUTOMATED NEUTROPHIL # 9.4 TH/MM3 (1.8-7.7); HEMATOCRIT 42.9 % (39.0-51.0); HEMO FLAGS DIFF FINAL; LYMPHOCYTE # 0.9 TH/MM3 (1.0-4.8); MEAN CORPUSCULAR HEMOGLOBIN 29.5 PG (27.0-34.0); MEAN CORPUSCULAR HGB CONC 34.3 % (32.0-36.0); PLATELET COUNT 262 TH/MM3 (150-450); RED BLOOD COUNT 4.99 MIL/MM3 (4.50-5.90); RED CELL DISTRIBUTION WIDTH 13.4 % (11.6-17.2); WHITE BLOOD COUNT 10.5 TH/MM3 (4.0-11.0)
[2017-03-08 08:15] LABS: BICARBONATE 19.1 MEQ/L (21.0-32.0); POTASSIUM 4.2 MEQ/L (3.5-5.1)
[2017-03-08 08:23] LABS: CREATINE KINASE 71 U/L (39-308)
[2017-03-08] MEDS: BUDESONIDE-FORMOTEROL 160/4.5 MCG INHALER INH SCH ×3 (09:00→21:00)
[2017-03-08] MEDS ORDERED: SODIUM CHLORIDE 0.9% FLUSH 10 ML FLUSH IV FLUSH SCH (09:00)
[2017-03-08] MEDS: ASPIRIN 81 MG CHEW TAB CHEW SCH (09:00)
--- NOTE | 2017-03-08 10:06 | EKG ---
Date Performed: 03/08/2017 Time Performed: 06:47:28 PTAGE: 61 years EKG: Sinus rhythm NONSPECIFIC T-WAVE ABNORMALITY BORDERLINE ECG PREVIOUS TRACING : 03/08/2017 03.29 DOCTOR: Jonn Solitario Interpretating Date/Time 03/08/2017 10:04:50
--- NOTE | 2017-03-08 10:06 | EKG ---
Date Performed: 03/08/2017 Time Performed: 03:29:13 PTAGE: 61 years EKG: Sinus rhythm WITH SINUS ARRHYTHMIA NORMAL ECG PREVIOUS TRACING : 03/07/2017 18.16 Compared to prior tracing no significant change DOCTOR: Jonn Solitario Interpretating Date/Time 03/08/2017 10:05:07
--- NOTE | 2017-03-08 10:06 | EKG ---
Date Performed: 03/07/2017 Time Performed: 18:16:00 PTAGE: 61 years EKG: Sinus rhythm NORMAL ECG PREVIOUS TRACING : 01/28/2017 13.29 Compared to prior tracing no significant change DOCTOR: Jonn Solitario Interpretating Date/Time 03/08/2017 10:05:17
[2017-03-08] MEDS: methylPREDNISolone SOD SUCC 40 MG/1 ML VIAL IV PUSH SCH ×2 (10:18→22:17)
[2017-03-08] MEDS: PANTOPRAZOLE SOD 40 MG DELAYED RELEASE TAB PO SCH (10:19)
[2017-03-08] MEDS: SODIUM CHLORIDE 0.9% FLUSH 10 ML FLUSH IV FLUSH SCH ×2 (10:19→22:17)
[2017-03-08] MEDS: clonazePAM 1 MG TAB PO SCH ×2 (10:19→22:17)
[2017-03-08] MEDS ORDERED: PRED20 PO (11:34)
[2017-03-08] MEDS ORDERED: IPRASOL NEB (11:34)
[2017-03-08] MEDS ORDERED: SYMB160A INH (11:34)
--- NOTE | 2017-03-08 11:40 | HHI.PR ---
Subjective Remarks Follow-up for anxiety and shortness of breath. Patient states that yesterday he felt like he was breathing rapidly and could not catch his breath. He feels like his breathing is much better today. He reports his breathing is near to his baseline which he reports is severe COPD based on outpatient PFTs. He feels like he never qualifies for home oxygen because we give him oxygen here despite the test being done on room air. He does have a nebulizer machine at home, but states he only uses it about once every 2 weeks. He has not been able to see his [place] bobbin drier since spring. He would like to try Respimat inhaler. He does report severe anxiety with breathing, but states he has to go to a private physician to manage his anxiety because the [place] won't do it. He states he takes less than he is prescribed with his Klonopin. He states that Xanax makes him angry. He is willing to follow up and try an SSRI. He would like to try an ABG to see if he qualifies for home oxygen. Objective Vitals Vital Signs Date Time Temp Pulse Resp B/P (MAP) Pulse Ox O2 Delivery O2 Flow Rate FiO2 03/08/17 09:42 98 Nasal Cannula 2.00 03/08/17 08:56 102 03/08/17 08:48 110/63 (79) 03/08/17 08:41 97.6 90 18 93 03/08/17 06:30 97.5 93 20 133/92 (106) 93 03/08/17 06:29 93 Nasal Cannula 2.00 03/08/17 04:13 88 03/08/17 03:31 97.8 82 20 134/76 (95) 92 03/08/17 02:45 81 03/08/17 01:30 95 Nasal Cannula 2.00 03/08/17 00:54 97.8 87 18 139/66 (90) 95 03/08/17 00:00 96 20 160/87 (111) 98 03/07/17 23:30 96 Nasal Cannula 2.00 03/07/17 19:00 28 97 Nasal Cannula 2.00 03/07/17 19:00 80 18 144/91 (108) 96 Nasal Cannula 2.00 03/07/17 18:49 98 Nasal Cannula 2.00 03/07/17 18:40 77 25 144/91 (108) 100 Nasal Cannula 03/07/17 18:34 25 Room Air 03/07/17 18:10 97.7 96 28 173/101 (125) 97 I/O 03/07/17 03/07/17 03/07/17 03/08/17 03/08/17 03/08/17 07:00 15:00 23:00 07:00 15:00 23:00 Output Total 750 ml Balance -750 ml Output Urine Total 750 ml Result Diagram: 03/08/1770403/08/17704 Imaging Last Impressions Chest X-Ray 03/07/171836 Signed Impressions: Service Date/Time: Tuesday, March 07, 2017 18:52 - CONCLUSION: 1. No acute cardiopulmonary disease. Jonn Magana MD CT Angiography 03/07/171836 Signed Impressions: Service Date/Time: Tuesday, March 07, 2017 22:06 - CONCLUSION: 1. No evidence of pulmonary embolism. 2. Bibasilar atelectasis with emphysematous changes bilaterally Jonn Magana MD Lower Extremity Ultrasound 03/07/17 0000 Signed Impressions: Service Date/Time: Tuesday, March 07, 2017 19:28 - CONCLUSION: 1. No evidence of deep venous thrombosis. Jonn Magana MD Objective Remarks GENERAL: Well-developed well-nourished. In no acute distress. SKIN: Warm and dry. No lesions noted. HEENT: Normocephalic. Pupils equal and round. Mucous membranes pink and moist. CARDIOVASCULAR: Regular rate and rhythm. No murmur appreciated. RESPIRATORY: Appears to be anxious and hyperventilating despite normal O2 sat on 2 L. Poor air movement/distant breath sounds in all lung pérez. No wheezing. GASTROINTESTINAL: Abdomen soft, non-tender, nondistended. Bowel sounds x4. MUSCULOSKELETAL: No obvious deformities. No clubbing or cyanosis. No edema. NEUROLOGICAL: Awake and alert. No focal neurological deficits. Moves upper and lower extremities spontaneously. Normal speech. PSYCHIATRIC: Extremely anxious mood and affect; insight and judgment normal. A/P Problem List: (1) COPD exacerbation ICD Code: J44.1 - Chronic obstructive pulmonary disease with (acute) exacerbation Status: Acute Assessment and Plan 61 y/o males with a history of COPD and anxiety who presented to with complaints of shortness of breath. Acute exacerbation of chronic COPD/emphysema Reviewed: chest x-ray with no acute process. Chest CT showed no PE, bibasilar atelectasis with emphysematous changes bilaterally. -DuoNeb's scheduled and when necessary, we'll write prescription for continue nebs at discharge -Taper IV Solu-Medrol to oral prednisone -Incentive spirometer -Oxygen as needed -Advair changed to Symbicort, seems to be tolerating well -Add Respimat -Check ABG to assess for home O2 need -Continue outpatient pulmonology follow-up Atypical chest pain secondary to cough: No further complaints today. Patient had nuclear stress test 2 months ago here that was nonischemic. -ACS ruled out per protocol with unremarkable serial cardiac enzymes and EKGs. -Refused aspirin Anxiety: Chronic. Seems to be contributing to symptoms as above. -Continue Klonopin -Encouraged continued outpatient follow-up DVT prophylaxis: SCDs Discharge Planning Patient reports breathing has improved to near his baseline. Follow up results of ABG and possible O2 requirement. Possible discharge later today depending on home O2 needs. Addendum 1600: Nonexertional ABG showed hypoxia 89% on room air. Walk test showed 89% with exertion. Needs home O2, case management to arrange. Likely discharge after home O2 arranged. Parveen Louis Mar 08, 2017 11:40
[2017-03-08 14:58] LABS: BLOOD GAS BASE EXCESS -1.3 mmol/L (-2-2); BLOOD GAS CARBOXYHEMOGLOBIN 1.1 % (0-4); BLOOD GAS HCO3 22 mmol/L (22-26); BLOOD GAS METHEMOGLOBIN 0.9 % (0-2); BLOOD GAS O2 HGB SATURATION 89 % (90-100); BLOOD GAS OXYGEN CONTENT 18.5 Vol % (12.0-20.0); BLOOD GAS PCO2 29 mmHg (38-42); BLOOD GAS PO2 56 mmHG (61-120); BLOOD GAS TOTAL HGB 14.8 G/DL (12.0-16.0); CRITICAL VALUE YES; DRAW SITE LT RADIAL; FIO2 21 %; NUMBER OF ARTERIAL PUNCTURES 1; STAT NO; TEMP CORR TO 98.6; ULNAR PULSE PRESENT
[2017-03-08] MEDS ORDERED: OXYGENDME NAS.CANULA (16:21)
[2017-03-09] VITALS: PULSE 90
[2017-03-09 03:12] VITALS: BP 109/59; PULSE 83; RESP 16; TEMP 98; O2SAT 95
[2017-03-09] MEDS: RESP: ALBUTEROL 2.5 MG/IPRATROPIUM 0.5 MG NEB (SCH) NEB ×2 (03:30→08:20)
[2017-03-09 04:00] VITALS: PULSE 78; PULSE 84
[2017-03-09 07:02] VITALS: BP 128/70; PULSE 78; RESP 16; TEMP 98.1; O2SAT 94
[2017-03-09 08:01] VITALS: PULSE 75
[2017-03-09 08:20] VITALS: O2SAT 98
[2017-03-09] MEDS: BUDESONIDE-FORMOTEROL 160/4.5 MCG INHALER INH SCH (08:54)
[2017-03-09] MEDS: PANTOPRAZOLE SOD 40 MG DELAYED RELEASE TAB PO SCH (09:00)
[2017-03-09] MEDS ORDERED: TIOTROPIUM BROMIDE 18 MCG INH INH SCH (09:00)
[2017-03-09] MEDS: ASPIRIN 81 MG CHEW TAB CHEW SCH (09:00)
[2017-03-09] MEDS: clonazePAM 1 MG TAB PO SCH (09:00)
[2017-03-09] MEDS: SODIUM CHLORIDE 0.9% FLUSH 10 ML FLUSH IV FLUSH SCH (09:00)
[2017-03-09] MEDS: methylPREDNISolone SOD SUCC 40 MG/1 ML VIAL IV PUSH SCH (09:01)
[2017-03-09] MEDS ORDERED: OXYGENDME NAS.CANULA (11:37)
--- NOTE | 2017-03-09 11:45 | HHI.PR ---
Subjective Remarks Follow-up for COPD. The patient reports that his breathing is better than it was prior to admission, especially since he has been receiving oxygen and nebulizers here. He states he has multiple steroid courses he hasn't used at home. Awaiting home O2 arrangement. Objective Vitals Vital Signs Date Time Temp Pulse Resp B/P (MAP) Pulse Ox O2 Delivery O2 Flow Rate FiO2 03/09/17 08:20 98 Nasal Cannula 2.00 03/09/17 08:19 Nasal Cannula 2.00 03/09/17 08:01 75 03/09/17 07:02 98.1 78 16 128/70 (89) 94 03/09/17 04:00 84 03/09/17 03:12 98.0 83 16 109/59 (76) 95 03/09/17 00:00 90 03/08/17 23:07 98.6 97 17 120/57 (78) 96 03/08/17 22:00 Nasal Cannula 2.00 03/08/17 20:55 97 03/08/17 20:10 98.1 110 18 135/81 (99) 92 03/08/17 20:00 114 03/08/17 18:00 113 03/08/17 16:13 2.00 03/08/17 15:32 97.9 98 22 132/68 (89) 92 03/08/17 11:50 97.7 122 28 138/85 (102) 92 I/O 03/08/17 03/08/17 03/08/17 03/09/17 03/09/17 03/09/17 07:00 15:00 23:00 07:00 15:00 23:00 Intake Total 875 ml Output Total 750 ml 300 ml Balance -750 ml 875 ml -300 ml Intake Oral 875 ml Output Urine Total 750 ml 300 ml # Voids 4 Result Diagram: 03/08/1770403/08/17704 Imaging Last Impressions Chest X-Ray 03/07/171836 Signed Impressions: Service Date/Time: Tuesday, March 07, 2017 18:52 - CONCLUSION: 1. No acute cardiopulmonary disease. Jonn Magana MD CT Angiography 03/07/171836 Signed Impressions: Service Date/Time: Tuesday, March 07, 2017 22:06 - CONCLUSION: 1. No evidence of pulmonary embolism. 2. Bibasilar atelectasis with emphysematous changes bilaterally Jonn Magana MD Lower Extremity Ultrasound 03/07/17 0000 Signed Impressions: Service Date/Time: Tuesday, March 07, 2017 19:28 - CONCLUSION: 1. No evidence of deep venous thrombosis. Jonn Magana MD Objective Remarks GENERAL: Well-developed well-nourished. In no acute distress. SKIN: Warm and dry. No lesions noted. HEENT: Normocephalic. Pupils equal and round. Mucous membranes pink and moist. CARDIOVASCULAR: Regular rate and rhythm. No murmur appreciated. RESPIRATORY: Appears to be anxious and hyperventilating despite normal O2 sat on 2 L. Poor air movement/distant breath sounds in all lung pérez. No wheezing. GASTROINTESTINAL: Abdomen soft, non-tender, nondistended. Bowel sounds x4. MUSCULOSKELETAL: No obvious deformities. No clubbing or cyanosis. No edema. NEUROLOGICAL: Awake and alert. No focal neurological deficits. Moves upper and lower extremities spontaneously. Normal speech. PSYCHIATRIC: Extremely anxious mood and affect; insight and judgment normal. A/P Problem List: (1) COPD exacerbation ICD Code: J44.1 - Chronic obstructive pulmonary disease with (acute) exacerbation Status: Acute Assessment and Plan 61 y/o males with a history of COPD and anxiety who presented to with complaints of shortness of breath. Acute exacerbation of chronic COPD/emphysema: symptoms improved to baseline dyspnea Reviewed: chest x-ray with no acute process. Chest CT showed no PE, bibasilar atelectasis with emphysematous changes bilaterally. -DuoNeb's scheduled and when necessary, prescription written for continued nebs at discharge -Taper IV Solu-Medrol to oral prednisone -Incentive spirometer -Oxygen as needed -Advair changed to Symbicort, seems to be tolerating well -Added Respimat -ABG showed hypoxia and walk test shows continued need for home oxygen, case management arranged -Continue outpatient pulmonology follow-up Atypical chest pain secondary to cough: No further complaints today. Patient had nuclear stress test 2 months ago here that was nonischemic. -ACS ruled out per protocol with unremarkable serial cardiac enzymes and EKGs. -Refused aspirin Anxiety: Chronic. Seems to be contributing to symptoms as above. -Continue Klonopin -Encouraged continued outpatient follow-up DVT prophylaxis: SCDs Discharge Planning Discharge once home oxygen arranged. Parveen Louis Mar 09, 2017 11:45
[2017-03-09] MEDS ORDERED: ALBU0.08 NEB (13:48)
[2017-03-09] MEDS ORDERED: SPIRCAP INH (13:48)
== END 2017-03-09 14:18 | disposition home or self-care (01) ==
LOC: NEPC 18:07 → NEDA 23:07 → NEPFCDU 03-08 00:31
PROVIDERS: ADMIT Hospitalist; ATTEND Hospitalist
DX: J44.1 Chronic obstructive pulmonary disease with (acute) exacerbation (principal); R07.89 Other chest pain; G47.30 Sleep apnea, unspecified; K21.9 Gastro-esophageal reflux disease without esophagitis; F41.9 Anxiety disorder, unspecified; F32.9 Major depressive disorder, single episode, unspecified; F43.10 Post-traumatic stress disorder, unspecified; Z79.899 Other long term (current) drug therapy; Z79.82 Long term (current) use of aspirin; Z87.891 Personal history of nicotine dependence; Z86.711 Personal history of pulmonary embolism; Z86.718 Personal history of other venous thrombosis and embolism
CPT/HCPCS: 36600; 71010; 71275; 80048; 80053; 82550; 82805; 83690; 83735; 83880; 84484; 85025; 85379; 85610; 85730; 93005; 93970; 94620; 94640; 94664; 96374; 96375; 96376; 99285; G0378; J1885; J2920; J2930; Q9967

== ENCOUNTER 2017-04-18 18:05 | Emergency (ER) | payer OTHER, MEDICARE ==
[~2017-04-18] VITALS: Ht 185.4 cm; Wt 96.0 kg
[~2017-04-18 18:05] MED LIST changes: -ADVA250A INH; +ALBU0.08 NEB; +OXYGENDME NAS.CANULA; +PRED20 PO; +SPIRCAP INH; +SYMB160A INH
[2017-04-18 18:06] VITALS: BP 167/100; PULSE 81; RESP 20; TEMP 97.5; O2SAT 98
[2017-04-18 18:21] VITALS: BP 167/98; PULSE 69; RESP 24; O2SAT 100
[2017-04-18 18:24] VITALS: BP 167/98; PULSE 73; RESP 16; O2SAT 98
--- NOTE | 2017-04-18 18:29 | PD ---
HPI Chief Complaint: Respiratory Symptoms Time Seen by Provider: 18:13 Travel History International Travel<30 days: No Contact w/Intl Traveler<30days: No Traveled to known affect area: No History of Present Illness HPI 61-year-old male with PMH of severe COPD presents to the ED for evaluation of worsening shortness breath over the last 3 days. Patient also endorses sharp intermittent pain over the left chest that radiates into the shoulder blade. He states this comes on randomly, lasts for 15 minutes before resolving spontaneously. She is not currently experiencing that pain on presentation. He denies recent history of fever, chills, productive cough. He has a history of DVT and PE and is not on any blood thinners. He endorses pain in the right calf, the site of his last DVT. He uses 2 L O2 by nasal cannula at home. He complains of ongoing dizziness, for "weeks," worse when standing. He states that he just had a negative cardiac workup, including stress test approximately 8 weeks ago. He is followed by Dr. Chris, pulmonology, and the [place] Past Medical History Asthma: No Blood Disorders: No Anxiety: Yes ([facility] made him anxious not writing RX when he needs it) Depression: No Heart Rhythm Problems: No Cancer: No Cardiovascular Problems: Yes High Cholesterol: No Chemotherapy: No Chest Pain: Yes Congestive Heart Failure: No COPD: Yes Diabetes: No Diminished Hearing: Yes Endocrine: No Genitourinary: No Immune Disorder: No Musculoskeletal: Yes (weakness) Neurologic: No Psychiatric: No Reproductive: No Respiratory: Yes (COPD) Radiation Therapy: No Sleep Apnea: No Thyroid Disease: No Past Surgical History Body Medical Devices: left elbow and fillings in mouth Tonsillectomy: Yes Other Surgery: Yes (as a child right elbow surgery, broken) Social History Alcohol Use: No Tobacco Use: No Substance Use: No Allergies-Medications (Allergen,Severity, Reaction): Coded Allergies: dabigatran etexilate (Verified Allergy, Severe, Hives, 04/18/17) enoxaparin (Verified Allergy, Severe, Rash, 04/18/17) lisinopril (Verified Allergy, Severe, EDEMA, 04/18/17) rivaroxaban (Verified Allergy, Severe, Hives, 04/18/17) warfarin (Verified Allergy, Severe, Rash, 04/18/17) acebutolol (Verified Adverse Reaction, Intermediate, feeling of nervousness, feeling of skin coming off, , 04/18/17) atenolol (Verified Adverse Reaction, Intermediate, feeling of nervousness , feeling of skin coming off, , 04/18/17) betaxolol (Verified Adverse Reaction, Intermediate, feeling of nervousness , feeling of skin coming off, , 04/18/17) carvedilol (Verified Adverse Reaction, Intermediate, feeling of nervousness, feeling of skin coming off, , 04/18/17) labetalol (Verified Adverse Reaction, Intermediate, feeling of nervousness , feeling of skin coming off, , 04/18/17) metoprolol (Verified Adverse Reaction, Intermediate, feeling of nervousness, feeling of skin coming off, , 04/18/17) nebivolol (Verified Adverse Reaction, Intermediate, feeling of nervousness , feeling of skin coming off, , 04/18/17) pindolol (Verified Adverse Reaction, Intermediate, feeling of nervousness , feeling of skin coming off, , 04/18/17) propranolol (Verified Adverse Reaction, Intermediate, feeling of nervousness, feeling of skin coming off, , 04/18/17) sotalol (Verified Adverse Reaction, Intermediate, feeling of nervousness, feeling of skin coming off, , 04/18/17) timolol (Verified Adverse Reaction, Intermediate, feeling of nervousness, feeling of skin coming off, , 04/18/17) Uncoded Allergies: BLOOD PRESSURE PILLS (Allergy, Severe, ITCHING, 01/04/17) Reported Meds & Prescriptions Reported Meds & Active Scripts Active Azithromycin 250 Mg Tab 250 Mg PO DIRECTED Take 2 tabs (500 mg) on day 1 then 1 tab daily x 4 days. Prednisone 20 Mg Tab 40 Mg PO DAILY Take 40 mg (2 tablets) daily for 5 days Albuterol Neb (Albuterol Sulfate) 2.5 Mg/3 Ml Neb 2.5 Mg NEB Q4HR NEB PRN Oxygen (O2) Device Liter PAULINA.CANULA CONTINUOUS Oxygen Concentrator Portable Gaseous 2 L/min via Nasal Canula Continuous For 99 months Oxygen (O2) Device Liter PAULINA.CANULA CONTINUOUS Oxygen Concentrator Portable Gaseous 2 L/min via Nasal Canula Continuous 99 months Pantoprazole (Pantoprazole Sodium) 40 Mg Tab 40 Mg PO DAILY Reported Anoro Ellipta Inh (Umeclidinium/Vilanterol) 62.5-25 Mcg/Act Aero 1 Puff INH DAILY Aspirin 81 Mg Chew 81 Mg CHEW ONCE Proair Hfa 8.5 GM Inh (Albuterol Sulfate) 90 Mcg/Act Aer 1 Puff INH Q4H PRN 108 mcg/actuation Clonazepam 1 Mg Tab 1 Mg PO BID Review of Systems Except as stated in HPI: all other systems reviewed are Neg Physical Exam Narrative GENERAL: Well-nourished, well-developed, anxious white male in no acute distress. On 2 L O2 by nasal cannula. SKIN: Focused skin assessment warm/dry. HEAD: Normocephalic. EYES: No scleral icterus. No injection or drainage. NECK: Supple, trachea midline. No JVD or lymphadenopathy. CARDIOVASCULAR: Regular rate and rhythm without murmurs, gallops, or rubs. CHEST: Nontender throughout without deformity or crepitus. RESPIRATORY: There is end expiratory wheezing bilaterally and diminished breath sounds in the right lower lobe. No accessory muscle use. GASTROINTESTINAL: Abdomen soft, non-tender, nondistended. Active bowel sounds MUSCULOSKELETAL: No cyanosis, or edema. BACK: Nontender without obvious deformity. No CVA tenderness. Data Data Last Documented VS Vital Signs Date Time Temp Pulse Resp B/P (MAP) Pulse Ox O2 Delivery O2 Flow Rate FiO2 04/18/17 20:22 84 25 165/85 (111) 79 25 158/74 (102) 100 30 155/88 (110) 04/18/17 19:19 96 04/18/17 19:19 Nasal Cannula 3.00 04/18/17 18:06 97.5 Orders Orders Complete Blood Count With Diff (04/18/17 18:24) Comprehensive Metabolic Panel (04/18/17 18:24) B-Type Natriuretic Peptide (04/18/17 18:24) Act Partial Throm Time (Ptt) (04/18/17 18:24) Prothrombin Time / Inr (Pt) (04/18/17 18:24) Magnesium (Mg) (04/18/17 18:24) Ckmb (Isoenzyme) Profile (04/18/17 18:24) Troponin I (04/18/17 18:24) Urinalysis - C+S If Indicated (04/18/17 18:24) Blood Culture (04/18/17 18:24) Iv Access Insert/Monitor (04/18/17 18:24) Electrocardiogram (04/18/17 18:24) Ecg Monitoring (04/18/17 18:24) Oximetry (04/18/17 18:24) Oxygen Administration (04/18/17 18:24) Chest, Single Ap (04/18/17 18:24) Ct Pulmonary Angiogram (04/18/17 18:24) Sodium Chloride 0.9% Flush (Ns Flush) (04/18/17 18:30) Methylprednisolone So Succ Inj (Solumedr (04/18/17 18:30) Albuterol-Ipratropium Neb (Duoneb Neb) (04/18/17 18:30) Iohexol 350 Inj (Omnipaque 350 Inj) (04/18/17 19:44) Morphine Inj (Morphine Inj) (04/18/17 20:15) Orthostatic Vital Signs (04/18/17 20:07) Us Leg Venous Doppler (04/18/17 ) Ed Discharge Order (04/18/17 21:23) Azithromycin (Zithromax) (04/18/17 21:45) Labs Laboratory Tests Test 04/18/17 18:30 04/18/17 19:23 White Blood Count 8.6 TH/MM3 Red Blood Count 5.37 MIL/MM3 Hemoglobin 15.6 GM/DL Hematocrit 46.6 % Mean Corpuscular Volume 86.8 FL Mean Corpuscular Hemoglobin 29.0 PG Mean Corpuscular Hemoglobin Concent 33.5 % Red Cell Distribution Width 13.4 % Platelet Count 264 TH/MM3 Mean Platelet Volume 7.7 FL Neutrophils (%) (Auto) 54.8 % Lymphocytes (%) (Auto) 32.5 % Monocytes (%) (Auto) 9.1 % Eosinophils (%) (Auto) 2.9 % Basophils (%) (Auto) 0.7 % Neutrophils # (Auto) 4.7 TH/MM3 Lymphocytes # (Auto) 2.8 TH/MM3 Monocytes # (Auto) 0.8 TH/MM3 Eosinophils # (Auto) 0.3 TH/MM3 Basophils # (Auto) 0.1 TH/MM3 CBC Comment DIFF FINAL Differential Comment Prothrombin Time 9.9 SEC Prothromb Time International Ratio 0.9 RATIO Activated Partial Thromboplast Time 27.4 SEC Blood Urea Nitrogen 17 MG/DL Creatinine 1.05 MG/DL Random Glucose 85 MG/DL Total Protein 7.3 GM/DL Albumin 3.7 GM/DL Calcium Level 8.6 MG/DL Magnesium Level 2.0 MG/DL Alkaline Phosphatase 91 U/L Aspartate Amino Transf (AST/SGOT) 28 U/L Alanine Aminotransferase (ALT/SGPT) 54 U/L Total Bilirubin 0.3 MG/DL Sodium Level 134 MEQ/L Potassium Level 3.7 MEQ/L Chloride Level 103 MEQ/L Carbon Dioxide Level 22.3 MEQ/L Anion Gap 9 MEQ/L Estimat Glomerular Filtration Rate 72 ML/MIN Total Creatine Kinase 65 U/L Troponin I LESS THAN 0.02 NG/ML B-Type Natriuretic Peptide 14 PG/ML Urine Color LIGHT-YELLOW Urine Turbidity CLEAR Urine pH 5.0 Urine Specific [place] 1.009 Urine Protein NEG mg/dL Urine Glucose (UA) NEG mg/dL Urine Ketones NEG mg/dL Urine Occult Blood NEG Urine Nitrite NEG Urine Bilirubin NEG Urine Urobilinogen LESS THAN 2.0 MG/DL Urine Leukocyte Esterase NEG Urine WBC 1 /hpf Microscopic Urinalysis Comment CULT NOT INDICATED MDM Medical Decision Making Medical Screen Exam Complete: Yes Emergency Medical Condition: Yes Differential Diagnosis COPD exacerbation versus pneumonia versus PE versus AAA versus anxiety versus other Narrative Course 61-year-old male with PMH of severe COPD presents to the ED for evaluation of worsening SOB over the last 3 days. Patient also endorses sharp intermittent pain over the left chest that radiates into the shoulder blade, resolved on presentation. He denies recent history of fever, chills, productive cough. He has a history of DVT and PE and is not on any blood thinners. He uses 2 L O2 by nasal cannula at home. He complains of ongoing dizziness, for "weeks," worse when standing. He states that he just had a negative cardiac workup, including stress test approximately 8 weeks ago. He is [facility] vitals reviewed. Physical exam reveals an anxious- appearing white male on 2 L oxygen by nasal cannula, in no acute distress. He has end expiratory wheezing in the bilateral lung pérez and diminished lung sounds in the right lower lobe, exam otherwise unremarkable. IV was established. Patient was administered 125 mg dexamethasone and 2 nebs 3. EKG rate 64, sinus rhythm. WV interval 144, QRS 97, QTC 417 ms. Normal axis. No ST changes. Reviewed by Dr. Mera. CXR: Lungs are clear. Radiology read. Troponin: Negative 1. BUN: 13. No concerning abnormalities of CBC, CMP, UA. Orthostatic vitals negative for orthostatic hypertension. CTA negative for PE. Left lower extremity ultrasound: Negative for DVT. I discussed the results of the workup with the patient. He does seem quite anxious and I wonder if this is playing a role in his illness. I reviewed his record from the last admission and his complaints were similar at that time. It was noted that he was noncompliant with at home steroids. He is provided a Z -Drew and a 5 day course of prednisone. He is instructed to take all medications as prescribed, even if symptoms resolve. We discussed the importance of taking the prednisone as well as importance of follow-up with Dr. Chris. Patient and his indicated understanding of the discharge instructions and are agreeable to the care plan. Patient is stable and discharged home. Diagnosis Primary Impression: COPD exacerbation Additional Impressions: Dizziness Anxiety Referrals: [facility] Patient Instructions: COPD (Chronic Obstructive Pulmonary Disease) (ED), General Instructions, Nutrition Guidelines for People with COPD (ED) Additional Instructions: Rest, hydrate. Return to normal, gentle activity as tolerated. Continue at home medications as previously prescribed. Take steroids as prescribed, even if symptoms resolve. Take antibiotics as prescribed. Continue with at home nebulizers. Follow up with Dr. Chris this week. Return to the ED for worsening symptoms or any urgent or emergent medical condition. Med/Other Pt SpecificInfo: Prescription(s) given Scripts Azithromycin (Azithromycin) 250 Mg Tab 250 MG PO DIRECTED for Infection, #6 TAB 0 Refills Take 2 tabs (500 mg) on day 1 then 1 tab daily x 4 days. Prov: Merle Mera MD 04/18/17 Prednisone (Prednisone) 20 Mg Tab 40 MG PO DAILY, #10 TAB 0 Refills Take 40 mg (2 tablets) daily for 5 days Prov: Merle Mera MD 04/18/17 Disposition: 01 DISCHARGE HOME Condition: Stable Shameka Pittman Apr 18, 2017 18:29
[2017-04-18] MEDS ORDERED: SODIUM CHLORIDE 0.9% FLUSH 10 ML FLUSH IVF PRN (18:30)
[2017-04-18] MEDS ORDERED: UMEC1AER INH (18:30)
[2017-04-18] MEDS: RESP: ALBUTEROL 2.5 MG/IPRATROPIUM 0.5 MG NEB (SCH) INH ×2 (18:30→18:33)
[2017-04-18] MEDS ORDERED: methylPREDNISolone SOD SUCC 125 MG/2 ML VIAL IV PUSH ONE (18:30)
[2017-04-18 18:33] VITALS: O2SAT 98
[2017-04-18 19:09] LABS: AUTOMATED NEUTROPHIL # 4.7 TH/MM3 (1.8-7.7); BASOPHIL # 0.1 TH/MM3 (0-0.2); BASOPHIL % 0.7 % (0.0-2.0); EOSINOPHIL # 0.3 TH/MM3 (0-0.4); EOSINOPHIL % 2.9 % (0.0-4.0); HEMATOCRIT 46.6 % (39.0-51.0); HEMO FLAGS DIFF FINAL; LYMPH % 32.5 % (9.0-44.0); LYMPHOCYTE # 2.8 TH/MM3 (1.0-4.8); MEAN CELL VOLUME 86.8 FL (80.0-100.0); MEAN CORPUSCULAR HGB CONC 33.5 % (32.0-36.0); MONO % 9.1 % (0.0-8.0); NEUT % 54.8 % (16.0-70.0); PLATELET COUNT 264 TH/MM3 (150-450); RED BLOOD COUNT 5.37 MIL/MM3 (4.50-5.90); RED CELL DISTRIBUTION WIDTH 13.4 % (11.6-17.2); WHITE BLOOD COUNT 8.6 TH/MM3 (4.0-11.0)
[2017-04-18 19:19] VITALS: BP 159/76; PULSE 74; RESP 16; O2SAT 96
[2017-04-18 19:19] LABS: APTT (PATIENT) 27.4 SEC (24.3-30.1); INTERNATIONAL NORMALIZED RATIO 0.9 RATIO; PROTHROMBIN TIME - PATIENT 9.9 SEC (9.8-11.6)
[2017-04-18 19:20] LABS: ANION GAP 9 MEQ/L (5-15); AST (GOT) 28 U/L (15-37); BICARBONATE 22.3 MEQ/L (21.0-32.0); BLOOD UREA NITROGEN 17 MG/DL (7-18); CHLORIDE 103 MEQ/L (98-107); GLOMERULAR FILTRATION RATE 72 ML/MIN (>89); POTASSIUM 3.7 MEQ/L (3.5-5.1); SODIUM (NA) 134 MEQ/L (136-145)
[2017-04-18 19:21] LABS: ALT (GPT) 54 U/L (12-78)
[2017-04-18 19:25] LABS: ALKALINE PHOSPHATASE 91 U/L (45-117); TOTAL BILIRUBIN ADULT 0.3 MG/DL (0.2-1.0)
[2017-04-18 19:30] LABS: CREATINE KINASE 65 U/L (39-308)
--- NOTE | 2017-04-18 19:35 | RADRPT ---
EXAM DATE/TIME: 04/18/2017 18:38 [facility] COMPARISON: CHEST SINGLE AP, March 07, 2017, 18:52. INDICATIONS : Short of breath. MEDICAL HISTORY : Chronic obstructive pulmonary disease. SURGICAL HISTORY : None. ENCOUNTER: Initial ACUITY: 3 days PAIN SCORE: 2/10 LOCATION: Bilateral chest FINDINGS: A single view of the chest demonstrates the lungs to be symmetrically aerated without evidence of mas s, infiltrate or effusion. No evidence of pneumothorax. The cardiomediastinal contours are unremark able. Osseous structures are intact. CONCLUSION: The lungs are clear. Cj Palacios MD on April 18, 2017 at 19:33 Board Certified Radiologist. This report was verified electronically.
[2017-04-18] MEDS ORDERED: IOHEXOL 350 MG/ML 10 ML VIAL (for RAD DIAG) IVCONTRAST ONE (19:44)
[2017-04-18 19:56] LABS: BLOOD, URINE NEG (NEG); COMMENT (UR) CULT NOT INDICATED; CULTURE IF INDICATED CULT NOT INDICATED; GLUCOSE,URINE NEG (NEG); KETONE, URINE NEG (NEG); NITRITE,URINE NEG (NEG); URINE COLOR LIGHT-YELLOW (YELLW/STRAW)
--- NOTE | 2017-04-18 20:02 | RADRPT ---
EXAM DATE/TIME: 04/18/2017 19:40 [facility] COMPARISON: CT PULMONARY ANGIOGRAM, March 07, 2017, 22:06. INDICATIONS : Dyspnea and chest pain. IV CONTRAST: 75 cc Omnipaque 350 (iohexol) IV RADIATION DOSE: 23.43 CTDIvol (mGy) MEDICAL HISTORY : Chronic obstructive pulmonary disease. Cardiovascular disease Hypertension.CVA. SURGICAL HISTORY : None. ENCOUNTER: Initial ACUITY: 1 day PAIN SCALE: 4/10 LOCATION: chest TECHNIQUE: Volumetric scanning of the chest was performed using a pulmonary embolism protocol MIP images were re constructed. Using automated exposure control and adjustment of the mA and/or kV according to patien t size, radiation dose was kept as low as reasonably achievable to obtain optimal diagnostic quality images. DICOM format image data is available electronically for review and comparison. Follow-up recommendations for detected pulmonary nodules are based at a minimum on nodule size and pa tient risk factors according to Fleischner Society Guidelines. FINDINGS: PULMONARY ARTERIES: No filling defects are seen in the pulmonary arteries through the segmental level. LUNGS: Patchy areas of infiltrate and scarring in the lower lateral right lung and lateral left midlung very similar appearance to prior examination 03/07/17. Upper lobe centrilobular emphysema is also stable. PLEURAE: There is no pleural thickening or pleural effusion. MEDIASTINUM: There is good visualization of the great vessels of the middle mediastinum. No evidence of mediastin al or hilar adenopathy/mass. CONCLUSION: 1. The study is negative for pulmonary embolism. 2. Bilateral non-consolidative infiltrates in the mid and lower lungs, stable from prior CT pulmonary angiogram. Cj Palacios MD on April 18, 2017 at 19:57 Board Certified Radiologist. This report was verified electronically.
[2017-04-18] MEDS ORDERED: MORPHINE SULFATE 4 MG/ML INJ IV PUSH ONE (20:15)
[2017-04-18 20:22] VITALS: BP_SYST 155; BP_SYST 158; BP_SYST 165; BP_DIAS 74; BP_DIAS 85; BP_DIAS 88; RESP 25; RESP 30
[2017-04-18] MEDS ORDERED: AZIT250T3 PO (20:55)
[2017-04-18] MEDS ORDERED: PRED20 PO (20:55)
--- NOTE | 2017-04-18 21:22 | RADRPT ---
EXAM DATE/TIME: 04/18/2017 20:31 [facility] COMPARISON: US LEG LEFT VENOUS DOPPLER, January 28, 2017, 13:42. INDICATIONS : Left leg pain. MEDICAL HISTORY : Chronic obstructive pulmonary disease. Myocardial infarction. Hearing aids. Anxiety. SURGICAL HISTORY : Tonsillectomy. Right elbow fracture. ENCOUNTER: Subsequent ACUITY: 2 weeks PAIN SCORE: 5/10 LOCATION: Left leg. TECHNIQUE: Venous ultrasound of the leg was performed from the inguinal ligament to the proximal calf. [employer]-[place] e, color Doppler and spectral tracing, compression and augmentation techniques were used. FINDINGS: There is normal compressibility of the deep venous system from the inguinal region to the proximal ca lf. No echogenic clot is seen in the lumen of the common femoral, femoral, popliteal, and posterior tibial veins. There is a normal response of the venous system to proximal and distal augmentation an d respiration. CONCLUSION: The study is negative for deep venous thrombosis left lower extremity. Cj Palacios MD on April 18, 2017 at 21:20 Board Certified Radiologist. This report was verified electronically.
[2017-04-18] MEDS ORDERED: AZITHROMYCIN 250 MG TAB PO ONE (21:45)
--- NOTE | 2017-04-19 19:15 | EKG ---
Date Performed: 04/18/2017 Time Performed: 18:46:32 PTAGE: 61 years EKG: Sinus rhythm Since previous tracing, no significant change noted NORMAL ECG PREVIOUS TRACING : 03/08/2017 06.47 DOCTOR: Harris Christiansen Interpretating Date/Time 04/19/2017 19:13:26
== END 2017-04-18 22:16 | disposition home or self-care (01) ==
LOC: NEPC 18:05
DX: J44.1 Chronic obstructive pulmonary disease with (acute) exacerbation (principal); R42 Dizziness and giddiness; F41.9 Anxiety disorder, unspecified; R07.9 Chest pain, unspecified
CPT/HCPCS: 71010; 71275; 80053; 81001; 82550; 83735; 83880; 84484; 85025; 85610; 85730; 87040; 93005; 93971; 94664; 96374; 96375; 99285; J2270; J2930; Q9967

== ENCOUNTER 2017-06-21 15:36 | Emergency (ER) | payer OTHER, MEDICARE ==
[2017-06-21] MEDS ORDERED: SODIUM CHLORIDE 0.9% FLUSH 10 ML FLUSH IVF (16:15)
[2017-06-21 16:25] LABS: AUTOMATED NEUTROPHIL # 5.3 TH/MM3 (1.8-7.7); BASOPHIL % 0.5 % (0.0-2.0); EOSINOPHIL # 0.2 TH/MM3 (0-0.4); EOSINOPHIL % 1.9 % (0.0-4.0); HEMATOCRIT 44.2 % (39.0-51.0); HEMO FLAGS DIFF FINAL; HEMOGLOBIN 14.9 GM/DL (13.0-17.0); LYMPH % 27.8 % (9.0-44.0); LYMPHOCYTE # 2.5 TH/MM3 (1.0-4.8); MEAN CELL VOLUME 85.1 FL (80.0-100.0); MEAN CORPUSCULAR HEMOGLOBIN 28.8 PG (27.0-34.0); MEAN CORPUSCULAR HGB CONC 33.8 % (32.0-36.0); MEAN PLATELET VOLUME 7.9 FL (7.0-11.0); MONO % 9.4 % (0.0-8.0); MONOCYTE # 0.8 TH/MM3 (0-0.9); NEUT % 60.4 % (16.0-70.0); PLATELET COUNT 285 TH/MM3 (150-450); RED BLOOD COUNT 5.19 MIL/MM3 (4.50-5.90); RED CELL DISTRIBUTION WIDTH 13.4 % (11.6-17.2); WHITE BLOOD COUNT 8.9 TH/MM3 (4.0-11.0)
[2017-06-21 16:39] LABS: ALBUMIN 3.6 GM/DL (3.4-5.0); ANION GAP 10 MEQ/L (5-15); AST (GOT) 18 U/L (15-37); BICARBONATE 22.6 MEQ/L (21.0-32.0); BLOOD UREA NITROGEN 21 MG/DL (7-18); CALCIUM 8.6 MG/DL (8.5-10.1); CHLORIDE 104 MEQ/L (98-107); CREATININE 1.06 MG/DL (0.60-1.30); GLOMERULAR FILTRATION RATE 72 ML/MIN (>89); GLUCOSE,RANDOM 91 MG/DL (74-106); SODIUM (NA) 137 MEQ/L (136-145)
[2017-06-21 16:40] LABS: ALT (GPT) 43 U/L (12-78)
[2017-06-21 16:44] LABS: ALKALINE PHOSPHATASE 85 U/L (45-117); TOTAL BILIRUBIN ADULT 0.2 MG/DL (0.2-1.0); TOTAL PROTEIN 6.9 GM/DL (6.4-8.2); TROPONIN I LESS THAN 0.02 NG/ML (0.02-0.05)
[2017-06-21 16:49] LABS: CREATINE KINASE 86 U/L (39-308)
[2017-06-21 16:50] LABS: B-TYPE NATRIURETIC PEPTIDE 5 PG/ML (0-100)
== END 2017-06-21 18:39 | disposition home or self-care (01) ==
LOC: NEPE 15:36
DX: R42 Dizziness and giddiness (principal); J44.9 Chronic obstructive pulmonary disease, unspecified; F41.9 Anxiety disorder, unspecified; R06.02 Shortness of breath; R20.0 Anesthesia of skin; R00.2 Palpitations; I10 Essential (primary) hypertension
CPT/HCPCS: 70450; 71045; 80053; 82550; 83880; 84484; 85025; 85610; 85730; 93005; 99285